=== PATIENT | female | born 1935 | race Caucasian/White ===

== ENCOUNTER 2016-12-15 12:34 | Inpatient (IN) | payer OTHER, MEDICARE ==
[2016-12-15] VITALS (7 sets, daily range): BP systolic 114–120; BP diastolic 55–58; PULSE 74–87; RESP 15–24; TEMP 97.4–99.1; O2SAT 91–96
[~2016-12-15] VITALS: Ht 160 cm; Wt 84.4 kg
[2016-12-15] MEDS ORDERED: MORPHINE SULFATE 4 MG/ML INJ IV PUSH ONE (13:00)
[2016-12-15] MEDS ORDERED: SODIUM CHLORIDE 0.9% FLUSH 10 ML FLUSH IVF PRN (13:00)
--- NOTE | 2016-12-15 13:02 | PD ---
HPI Chief Complaint: Fall Time Seen by Provider: 12:48 Travel History International Travel<30 days: No Contact w/Intl Traveler<30days: No Traveled to known affect area: No History of Present Illness HPI 81-year-old female with PMH of Alzheimer's, dementia, CKD stage III presents to the ED via EMS for evaluation of left hip pain. The patient is somewhat somnolent, rouses easily to voice but only intermittently answers questions. Her daughter is at bedside and helps to provide the history. Patient's daughter states that her mother suffered an unwitnessed fall 4 days ago. The patient's daughter and her brother helped to move the patient back in bed. Since that time the patient has not gotten up and has been complaining of left hip pain. The daughter also reports that she has been less active or participatory in her ADLs. The patient takes no daily medications. Patient's last meal was soup, last night. PFSH Past Medical History Alzheimer's Disease: Yes Arthritis: No Autoimmune Disease: No Heart Rhythm Problems: No Cardiovascular Problems: Yes (HYPOTENTION ) High Cholesterol: Yes Chest Pain: No Congestive Heart Failure: No Cerebrovascular Accident: No Dementia: Yes Diabetes: No Diminished Hearing: No Gastrointestinal Disorders: No GERD: No Glaucoma: No Genitourinary: Yes (CHRONIC KIDNEY DISEASE - STAGE 3 ) Headaches: No Hepatitis: No Hiatal Hernia: No Hypertension: No Kidney Stones: No Medical other: Yes (VITAMIN D DEFICIENCY ) Musculoskeletal: Yes (OSTEOPOROSIS ) Myocardial Infarction: No Renal Failure: No Seizures: No Thyroid Disease: Yes (HYPOTHYROID ) Ulcer: No Tetanus Vaccination: Unknown Influenza Vaccination: No ?: Not Menopausal: Yes Past Surgical History Abdominal Surgery: No AICD: No Cardiac Surgery: No Ear Surgery: No Endocrine Surgery: No Eye Surgery: No Gynecologic Surgery: No Oral Surgery: No Pacemaker: No Thoracic Surgery: No Other Surgery: No Social History Alcohol Use: No Tobacco Use: No Substance Use: No Allergies-Medications (Allergen,Severity, Reaction): Coded Allergies: No Known Allergies (Verified Allergy, Severe, 12/15/16) Reported Meds & Prescriptions Reported Meds & Active Scripts Active Reported Donepezil 10 Mg Tab 10 Mg PO BID Levothyroxine (Levothyroxine Sodium) 50 Mcg Tab 50 Mcg PO DAILY Atorvastatin (Atorvastatin Calcium) 40 Mg Tab 40 Mg PO HS Review of Systems ROS Limitations: Poor Historian Except as stated in HPI: all other systems reviewed are Neg General / Constitutional: No: Fever Eyes: No: Visual changes HENT: No: Headaches, Lightheadedness Cardiovascular: No: Chest Pain or Discomfort Gastrointestinal: No: Vomiting, Diarrhea Genitourinary: Positive: Incontinence Neurologic: No: Weakness, Syncope, Slurred Speech Physical Exam Exam Limitations: Other: (Alzheimer's, dementia) Narrative GENERAL: Well-nourished, well-developed white female in no acute distress. SKIN: Focused skin assessment warm/dry. HEAD: Normocephalic. EYES: No scleral icterus. No injection or drainage. Pupils pinpoint bilaterally. NECK: Supple, trachea midline. No JVD or lymphadenopathy. CARDIOVASCULAR: Regular rate and rhythm without murmurs, gallops, or rubs. RESPIRATORY: Breath sounds clear and equal bilaterally. No accessory muscle use. GASTROINTESTINAL: Abdomen soft, non-tender, nondistended. Active bowel sounds. MUSCULOSKELETAL: No cyanosis, or edema. FOCUSED LEFT LOWER EXTREMITY EXAM: 2+ DP pulse. The leg is slightly internally rotated and shortened. No tenderness to palpation of the anterior lateral hip or pain elicited with internal and external rotation. BACK: Nontender without obvious deformity. No CVA tenderness. Data Data Last Documented VS Vital Signs Date Time Temp Pulse Resp B/P (MAP) Pulse Ox O2 Delivery O2 Flow Rate FiO2 12/15/16 15:14 74 24 114/58 (76) 95 Room Air 12/15/16 12:46 99.1 Orders Orders Electrocardiogram (12/15/16 12:48) Complete Blood Count With Diff (12/15/16 12:48) Comprehensive Metabolic Panel (12/15/16 12:48) Prothrombin Time / Inr (Pt) (12/15/16 12:48) Act Partial Throm Time (Ptt) (12/15/16 12:48) Urinalysis - C+S If Indicated (12/15/16 12:48) Type And Screen (12/15/16 12:48) Chest, Single Ap (12/15/16 12:48) Iv Access Insert/Monitor (12/15/16 12:48) Oximetry (12/15/16 12:48) Ice/Cold Pack (12/15/16 12:48) Ecg Monitoring (12/15/16 12:48) Sodium Chloride 0.9% Flush (Ns Flush) (12/15/16 13:00) Hip, Uni(Ap&Lat) W Ap Pelvis (12/15/16 12:48) Ct Brain W/O Iv Contrast(Rout) (12/15/16 ) Ct Cerv Spine W/O Contrast (12/15/16 ) Acetaminophen (Tylenol) (12/15/16 13:15) Urinary Catheter Insert/Apply (12/15/16 13:31) Urine Culture (12/15/16 13:20) Ceftriaxone Inj (Rocephin Inj) (12/15/16 14:15) Consult Orthopedic (12/15/16 ) (Hub Use Only)Inp Phy Cons/Ref (12/15/16 ) Admit Order (Ed Use Only) (12/15/16 15:24) Labs Laboratory Tests Test 12/15/16 12:50 12/15/16 13:20 12/15/16 13:40 White Blood Count 10.5 TH/MM3 Red Blood Count 4.16 MIL/MM3 Hemoglobin 12.9 GM/DL Hematocrit 37.8 % Mean Corpuscular Volume 90.9 FL Mean Corpuscular Hemoglobin 31.0 PG Mean Corpuscular Hemoglobin Concent 34.1 % Red Cell Distribution Width 13.9 % Platelet Count 251 TH/MM3 Mean Platelet Volume 8.5 FL Neutrophils (%) (Auto) 62.5 % Lymphocytes (%) (Auto) 23.3 % Monocytes (%) (Auto) 7.8 % Eosinophils (%) (Auto) 5.9 % Basophils (%) (Auto) 0.5 % Neutrophils # (Auto) 6.6 TH/MM3 Lymphocytes # (Auto) 2.4 TH/MM3 Monocytes # (Auto) 0.8 TH/MM3 Eosinophils # (Auto) 0.6 TH/MM3 Basophils # (Auto) 0.1 TH/MM3 CBC Comment DIFF FINAL Differential Comment Prothrombin Time 11.5 SEC Prothromb Time International Ratio 1.0 RATIO Activated Partial Thromboplast Time 28.8 SEC Urine Color YELLOW Urine Turbidity HAZY Urine pH 5.0 Urine Specific [place] 1.023 Urine Protein TRACE mg/dL Urine Glucose (UA) NEG mg/dL Urine Ketones NEG mg/dL Urine Occult Blood TRACE Urine Nitrite NEG Urine Bilirubin NEG Urine Urobilinogen LESS THAN 2.0 MG/DL Urine Leukocyte Esterase LARGE Urine RBC 1 /hpf Urine WBC 90 /hpf Urine WBC Clumps MANY Urine Squamous Epithelial Cells 20 /hpf Urine Bacteria RARE /hpf Urine Mucus FEW /lpf Microscopic Urinalysis Comment CULTURE INDICATED Blood Urea Nitrogen 14 MG/DL Creatinine 0.73 MG/DL Random Glucose 93 MG/DL Total Protein 6.6 GM/DL Albumin 2.4 GM/DL Calcium Level 8.5 MG/DL Alkaline Phosphatase 96 U/L Aspartate Amino Transf (AST/SGOT) 42 U/L Alanine Aminotransferase (ALT/SGPT) 22 U/L Total Bilirubin 1.1 MG/DL Sodium Level 134 MEQ/L Potassium Level 3.8 MEQ/L Chloride Level 103 MEQ/L Carbon Dioxide Level 22.8 MEQ/L Anion Gap 8 MEQ/L Estimat Glomerular Filtration Rate 77 ML/MIN [facility] Medical Decision Making Medical Screen Exam Complete: Yes Emergency Medical Condition: Yes Differential Diagnosis hip fracture versus ICH versus UTI versus cervical fracture versus other Narrative Course 81-year-old female with PMH of Alzheimer's, dementia, CKD stage III presents to the ED via EMS for evaluation of left hip pain. Onset after unwitnessed fall 4 days ago. The patient is somewhat somnolent, answers questions only intermittently. The history is provided by her daughter who is at bedside. She states that her mom is been lying in bed for the last 3 days, not much of an appetite but otherwise behaving normally. Vitals reviewed. Physical exam reveals the left leg to be shortened, internally rotated. She has a palpable DP pulse. No pain elicited with external and internal rotation. Patient was administered Tylenol by mouth. Left hip and pelvis x-ray: Acute displaced and angulated fracture of the left femoral neck with likely extension into the greater trochanter per radiology read. EKG rate 77, sinus rhythm. No ST changes. Reviewed by Dr. Mcgregor. CXR: No acute cardiopulmonary abnormality. Cervical CT no fracture, exaggeration of normal lordosis. CBC: WBC 10.5. Hemoglobin 12.9. Coags: INR 1.0. CMP: BUN 14, creatinine 0.73. Bilirubin 1.1. AST 42. UA: Hazy, large leukocyte esterase, 90 WBCs, many clumps, rare bacteria. Culture pending. The patient was administered 1 g Rocephin IV. I spoke with Dr. Martin who plans surgery tomorrow morning. Dr. Pontey agrees to accept the patient to the medicine service. Please see medicine and ortho notes for disposition. Re Ariza Dec 15, 2016 13:02
[2016-12-15] MEDS ORDERED: ACETAMINOPHEN 500 MG CPLT PO ONE (13:15)
[2016-12-15 13:22] LABS: AUTOMATED NEUTROPHIL # 6.6 TH/MM3 (1.8-7.7); BASOPHIL # 0.1 TH/MM3 (0-0.2); BASOPHIL % 0.5 % (0.0-2.0); EOSINOPHIL # 0.6 TH/MM3 (0-0.4); EOSINOPHIL % 5.9 % (0.0-4.0); HEMATOCRIT 37.8 % (35.0-46.0); HEMO FLAGS DIFF FINAL; LYMPH % 23.3 % (9.0-44.0); LYMPHOCYTE # 2.4 TH/MM3 (1.0-4.8); MEAN CELL VOLUME 90.9 FL (80.0-100.0); MEAN CORPUSCULAR HGB CONC 34.1 % (32.0-36.0); MONO % 7.8 % (0.0-8.0); NEUT % 62.5 % (16.0-70.0); PLATELET COUNT 251 TH/MM3 (150-450); RED BLOOD COUNT 4.16 MIL/MM3 (4.00-5.30); RED CELL DISTRIBUTION WIDTH 13.9 % (11.6-17.2); WHITE BLOOD COUNT 10.5 TH/MM3 (4.0-11.0)
[2016-12-15] MEDS ORDERED: DONE10TA7 PO (13:25)
[2016-12-15] MEDS ORDERED: LEVO50TA4 PO (13:25)
[2016-12-15] MEDS ORDERED: ATOR40TA16 PO (13:25)
--- NOTE | 2016-12-15 13:39 | PD ---
Physical Exam Date Seen by Provider: Dec 15, 2016 Narrative This patient presents with a left hip injury. The injury actually occurred several days ago. Data Data Last Documented VS Vital Signs Date Time Temp Pulse Resp B/P (MAP) Pulse Ox O2 Delivery O2 Flow Rate FiO2 12/15/16 13:22 78 15 96 Room Air 12/15/16 12:46 99.1 120/58 (78) Orders Orders Electrocardiogram (12/15/16 12:48) Complete Blood Count With Diff (12/15/16 12:48) Comprehensive Metabolic Panel (12/15/16 12:48) Prothrombin Time / Inr (Pt) (12/15/16 12:48) Act Partial Throm Time (Ptt) (12/15/16 12:48) Urinalysis - C+S If Indicated (12/15/16 12:48) Type And Screen (12/15/16 12:48) Chest, Single Ap (12/15/16 12:48) Iv Access Insert/Monitor (12/15/16 12:48) Oximetry (12/15/16 12:48) Ice/Cold Pack (12/15/16 12:48) Ecg Monitoring (12/15/16 12:48) Sodium Chloride 0.9% Flush (Ns Flush) (12/15/16 13:00) Hip, Uni(Ap&Lat) W Ap Pelvis (12/15/16 12:48) Ct Brain W/O Iv Contrast(Rout) (12/15/16 ) Ct Cerv Spine W/O Contrast (12/15/16 ) Acetaminophen (Tylenol) (12/15/16 13:15) Urinary Catheter Insert/Apply (12/15/16 13:31) Labs Laboratory Tests Test 12/15/16 12:50 12/15/16 13:20 White Blood Count 10.5 TH/MM3 Red Blood Count 4.16 MIL/MM3 Hemoglobin 12.9 GM/DL Hematocrit 37.8 % Mean Corpuscular Volume 90.9 FL Mean Corpuscular Hemoglobin 31.0 PG Mean Corpuscular Hemoglobin Concent 34.1 % Red Cell Distribution Width 13.9 % Platelet Count 251 TH/MM3 Mean Platelet Volume 8.5 FL Neutrophils (%) (Auto) 62.5 % Lymphocytes (%) (Auto) 23.3 % Monocytes (%) (Auto) 7.8 % Eosinophils (%) (Auto) 5.9 % Basophils (%) (Auto) 0.5 % Neutrophils # (Auto) 6.6 TH/MM3 Lymphocytes # (Auto) 2.4 TH/MM3 Monocytes # (Auto) 0.8 TH/MM3 Eosinophils # (Auto) 0.6 TH/MM3 Basophils # (Auto) 0.1 TH/MM3 CBC Comment DIFF FINAL Differential Comment MDM Supervised Visit with JOSE FRANCISCO: Yes Narrative Course I, Dr. Mcgregor, have reviewed the advance practice practitioner's documentation and am in agreement, met with the patient face to face, made the diagnosis, and the medical decision making was done by me. *My assessment and Findings: Patient seems demented. She has a slightly shortened and internally rotated left hip. She resists logrolling of the hip. She is distally neurovascularly intact. Please see Re Ariza PA-C's note for results of laboratory and radiographic evaluation, ED course, final diagnosis and disposition Anushka Mcgregor MD Dec 15, 2016 13:39
[2016-12-15 13:41] LABS: APTT (PATIENT) 28.8 SEC (24.3-30.1); PROTHROMBIN TIME - PATIENT 11.5 SEC (9.8-11.6)
--- NOTE | 2016-12-15 13:54 | RADRPT ---
EXAM DATE/TIME: 12/15/2016 13:27 [facility] COMPARISON: No previous studies available for comparison. INDICATIONS : Head pain due to fall. RADIATION DOSE: 32.65 CTDIvol (mGy) MEDICAL HISTORY : Hypothyroidism. Renal insufficiency. SURGICAL HISTORY : Right ankle sx. ENCOUNTER: Initial ACUITY: 1 day PAIN SCALE: 6/10 LOCATION: Bilateral cranial TECHNIQUE: Multiple contiguous axial images were obtained of the head. Using automated exposure control and adj ustment of the mA and/or kV according to patient size, radiation dose was kept as low as reasonably a chievable to obtain optimal diagnostic quality images. DICOM format image data is available electro nically for review and comparison. FINDINGS: CEREBRUM: The ventricles are normal for age. No evidence of midline shift, mass lesion, hemorrhage or acute in farction. No extra-axial fluid collections are seen. Moderate vasoganglia calcifications. POSTERIOR FOSSA: The cerebellum and brainstem are intact. The 4th ventricle is midline. The cerebellopontine angle i s unremarkable. Moderate posterior fossa EXTRACRANIAL: The visualized portion of the orbits is intact. SKULL: The calvaria is intact. No evidence of skull fracture. CONCLUSION: Dystrophic calcifications, otherwise negative for acute process. Mendoza Myers MD FACR on December 15, 2016 at 13:52 Board Certified Radiologist. This report was verified electronically.
[2016-12-15 13:58] LABS: BACTERIA, URINE RARE /hpf; BLOOD, URINE TRACE (NEG); COMMENT (UR) CULTURE INDICATED; CULTURE IF INDICATED CULTURE INDICATED; GLUCOSE,URINE NEG (NEG); KETONE, URINE NEG (NEG); MUCUS URINE FEW /lpf (OCC); NITRITE,URINE NEG (NEG); SQUAMOUS EPITHELIAL CELL URINE 20 /hpf (0-5); URINE COLOR YELLOW (YELLW/STRAW)
[2016-12-15] MEDS ORDERED: cefTRIAXone INJ 1,000 MG in SODIUM CHLORIDE 0.9% INJ 100 ML IV ONE (14:15)
--- NOTE | 2016-12-15 14:16 | RADRPT ---
EXAM DATE/TIME: 12/15/2016 13:27 [facility] COMPARISON: No previous studies available for comparison. INDICATIONS : Neck pain due to fall. RADIATION DOSE: 13.21 CTDIvol (mGy) MEDICAL HISTORY : Hypothyroidism. Renal insufficiency. SURGICAL HISTORY : Right ankle sx. ENCOUNTER: Initial ACUITY: 1 day PAIN SCALE: 6/10 LOCATION: Bilateral neck region. TECHNIQUE: Volumetric scanning of the cervical spine was performed. Multiplanar reconstructions in the sagittal, coronal and oblique axial planes were performed. Using automated exposure control and adjustment o f the mA and/or kV according to patient size, radiation dose was kept as low as reasonably achievable to obtain optimal diagnostic quality images. DICOM format image data is available electronically f or review and comparison. FINDINGS: VERTEBRAE: There is marked exaggeration of the normal cervical lordosis. ALIGNMENT: No evidence of subluxation. C2-C3: Degenerative changes at C1 and C2. Mildridging at C2-C3. C3-C4: Moderate uncinate ridging is present with moderate bilateral facet disease. C4-C5: The bony spinal canal is normal in size. No evidence of disc bulge or herniation. The neural forami na are bilaterally patent. C5-C6: Mild uncinate ridging is present minimal facet disease. C6-C7: Mild uncinate ridging is present. C7-T1: The bony spinal canal is normal in size. No evidence of disc bulge or herniation. The neural forami na are bilaterally patent. CONCLUSION: Marked exaggeration of normal cervical lordosis, negative for fracture. Mild degenerative changes. Mendoza Myers MD FACR on December 15, 2016 at 14:10 Board Certified Radiologist. This report was verified electronically.
--- NOTE | 2016-12-15 14:18 | RADRPT ---
EXAM DATE/TIME: 12/15/2016 13:53 [facility] COMPARISON: No previous studies available for comparison. INDICATIONS : Chest discomfort; fall 5 days ago. MEDICAL HISTORY : None. SURGICAL HISTORY : None. ENCOUNTER: Initial ACUITY: 4 - 6 days PAIN SCORE: 0/10 LOCATION: Bilateral chest FINDINGS: Single AP view of the chest demonstrates a normal-sized cardiac silhouette with calcification of the aorta. No effusion, consolidation, or pneumothorax is identified. Mild biapical pleural pedicle scar is present. Bones and soft tissues demonstrate no acute finding. There is dextroscoliosis. CONCLUSION: No acute cardiopulmonary abnormality is identified. Ortega Xiao MD on December 15, 2016 at 14:16 Board Certified Radiologist. This report was verified electronically.
--- NOTE | 2016-12-15 14:20 | RADRPT ---
EXAM DATE/TIME: 12/15/2016 13:53 [facility] COMPARISON: No previous studies available for comparison. INDICATIONS : Left hip pain; fell 5 days ago. MEDICAL HISTORY : None. SURGICAL HISTORY : None. ENCOUNTER: Initial ACUITY: 4 - 6 days PAIN SCORE: 10/10 LOCATION: Left hip FINDINGS: AP view of the pelvis with 2 views of the left hip joint demonstrate under mineralized bones with an oblique fracture through the basicervical region of the femoral neck with likely extension into the g reater trochanter. The fracture is slightly displaced and angulated. There is mild osteoarthritis at the hip joints bilaterally with mild joint space narrowing and osteophytes. No soft tissue abnormalit y is identified. CONCLUSION: There is an acute displaced and angulated fracture in the basicervical region of the left femoral nec k with likely extension into the greater trochanter. Ortega Xiao MD on December 15, 2016 at 14:17 Board Certified Radiologist. This report was verified electronically.
[2016-12-15 14:44] LABS: ALT (GPT) 22 U/L (10-53); ANION GAP 8 MEQ/L (5-15); AST (GOT) 42 U/L (15-37); BICARBONATE 22.8 MEQ/L (21.0-32.0); BLOOD UREA NITROGEN 14 MG/DL (7-18); CHLORIDE 103 MEQ/L (98-107); GLOMERULAR FILTRATION RATE 77 ML/MIN (>89); POTASSIUM 3.8 MEQ/L (3.5-5.1); SODIUM (NA) 134 MEQ/L (136-145)
[2016-12-15 14:47] LABS: ALKALINE PHOSPHATASE 96 U/L (45-117); TOTAL BILIRUBIN ADULT 1.1 MG/DL (0.2-1.0)
--- NOTE | 2016-12-15 15:38 | HHI.HP ---
[facility] Len [facility] Admission Diagnosis left hip fracture, UTI Diagnoses: (1) Hip fracture, left (2) UTI (urinary tract infection) (3) Dementia Chief Complaint: Left Hip pain Travel History International Travel<30 Days: No Contact w/Intl Traveler <30 Da: No Traveled to Known Affected Are: No History of Present Illness 81 year-old female with history of dementia was brought to the ED for evaluation of left hip pain 4 days duration. Apparently about 4 days ago, patient woke up from sleep and wandered outside, however she suffered an unwitnessed fall. Patient is a poor historian as the history is mainly provided by her daughter, who stated that patient has been complaining of left hip every times she moves or stand up. She was given a be aspirin over the past 4 days, without any significant improvement. Patient's PCP advise for a visit to the ED. While in the ED, hip and pelvis x-ray revealing left femoral neck fracture. Abnormal labs also include UA. Patient is quite somnolent during my exam. Per her daughter, she's had decrease by mouth intake Review of Systems ROS Limitations: Poor Historian Except as stated in HPI: all other systems reviewed are Neg Past Family Social History Past Medical History Cardiovascular Problems: Yes (HYPOTENTION ) High Cholesterol: Yes Dementia: Yes Genitourinary: Yes (CHRONIC KIDNEY DISEASE - STAGE 3 ) Medical other: Yes (VITAMIN D DEFICIENCY ) Musculoskeletal: Yes (OSTEOPOROSIS ) Thyroid Disease: Yes (HYPOTHYROID ) Past Surgical History Open reduction internal fixation right ankle 2003 Reported Medications Donepezil 10 Mg Tab 10 Mg PO BID Levothyroxine (Levothyroxine Sodium) 50 Mcg Tab 50 Mcg PO DAILY Atorvastatin (Atorvastatin Calcium) 40 Mg Tab 40 Mg PO HS Allergies: Coded Allergies: No Known Allergies (Verified Allergy, Severe, 12/15/16) Family History Due to patient advanced age family history not relevant Social History Alcohol Use: No Tobacco Use: No Substance Use: No Physical Exam Vital Signs Vital Signs Date Time Temp Pulse Resp B/P (MAP) Pulse Ox O2 Delivery O2 Flow Rate FiO2 12/15/16 15:14 74 24 114/58 (76) 95 Room Air 12/15/16 13:22 78 15 96 Room Air 12/15/16 12:46 99.1 77 15 120/58 (78) 96 Physical Exam GENERAL: This is a well-nourished, well-developed patient, in no apparent distress. SKIN: No rashes, ecchymoses or lesions. Cool and dry. HEAD: Atraumatic. Normocephalic. No temporal or scalp tenderness. EYES: Pupils equal round and reactive. Extraocular motions intact. No scleral icterus. No injection or drainage. ENT: Nose without bleeding, purulent drainage or septal hematoma. Throat without erythema, tonsillar hypertrophy or exudate. Uvula midline. Airway patent. NECK: Trachea midline. No JVD or lymphadenopathy. Supple, nontender, no meningeal signs. CARDIOVASCULAR: Regular rate and rhythm without murmurs, gallops, or rubs. RESPIRATORY: Clear to auscultation. Breath sounds equal bilaterally. No wheezes , rales, or rhonchi. GASTROINTESTINAL: Abdomen soft, non-tender, nondistended. No hepato-splenomegaly , or palpable masses. No guarding. MUSCULOSKELETAL: Extremities without clubbing, cyanosis, or edema. No joint tenderness, effusion, or edema noted. No calf tenderness. Negative Homans sign bilaterally. NEUROLOGICAL: Awake and alert. Cranial nerves II through XII intact. Motor and sensory grossly within normal limits. Five out of 5 muscle strength in all muscle groups. Normal speech. Laboratory Laboratory Tests Test 12/15/16 12:50 12/15/16 13:20 12/15/16 13:40 White Blood Count 10.5 Red Blood Count 4.16 Hemoglobin 12.9 Hematocrit 37.8 Mean Corpuscular Volume 90.9 Mean Corpuscular Hemoglobin 31.0 Mean Corpuscular Hemoglobin Concent 34.1 Red Cell Distribution Width 13.9 Platelet Count 251 Mean Platelet Volume 8.5 Neutrophils (%) (Auto) 62.5 Lymphocytes (%) (Auto) 23.3 Monocytes (%) (Auto) 7.8 Eosinophils (%) (Auto) 5.9 Basophils (%) (Auto) 0.5 Neutrophils # (Auto) 6.6 Lymphocytes # (Auto) 2.4 Monocytes # (Auto) 0.8 Eosinophils # (Auto) 0.6 Basophils # (Auto) 0.1 CBC Comment DIFF FINAL Differential Comment Prothrombin Time 11.5 Prothromb Time International Ratio 1.0 Activated Partial Thromboplast Time 28.8 Urine Color YELLOW Urine Turbidity HAZY Urine pH 5.0 Urine Specific [place] 1.023 Urine Protein TRACE Urine Glucose (UA) NEG Urine Ketones NEG Urine Occult Blood TRACE Urine Nitrite NEG Urine Bilirubin NEG Urine Urobilinogen LESS THAN 2.0 Urine Leukocyte Esterase LARGE Urine RBC 1 Urine WBC 90 Urine WBC Clumps MANY Urine Squamous Epithelial Cells 20 Urine Bacteria RARE Urine Mucus FEW Microscopic Urinalysis Comment CULTURE INDICATED Blood Urea Nitrogen 14 Creatinine 0.73 Random Glucose 93 Total Protein 6.6 Albumin 2.4 Calcium Level 8.5 Alkaline Phosphatase 96 Aspartate Amino Transf (AST/SGOT) 42 Alanine Aminotransferase (ALT/SGPT) 22 Total Bilirubin 1.1 Sodium Level 134 Potassium Level 3.8 Chloride Level 103 Carbon Dioxide Level 22.8 Anion Gap 8 Estimat Glomerular Filtration Rate 77 Date/Time Source Procedure Growth Status 12/15/16 13:20 Urine Catheterized Urine Urine Culture Pending Received Result Diagram: 12/15/16 1250 12/15/16 1340 Imaging Last Impressions Hip and Pelvis X-Ray 12/15/16 1248 Signed Impressions: Service Date/Time: Thursday, December 15, 2016 13:53 - CONCLUSION: There is an acute displaced and angulated fracture in the basicervical region of the left femoral neck with likely extension into the greater trochanter. Ortega Xiao MD Chest X-Ray 12/15/16 1248 Signed Impressions: Service Date/Time: Thursday, December 15, 2016 13:53 - CONCLUSION: No acute cardiopulmonary abnormality is identified. Ortega Xiao MD Head CT 12/15/16 0000 Signed Impressions: Service Date/Time: Thursday, December 15, 2016 13:27 - CONCLUSION: Dystrophic calcifications, otherwise negative for acute process. Mendoza Myers MD FACR Cervical Spine CT 12/15/16 0000 Signed Impressions: Service Date/Time: Thursday, December 15, 2016 13:27 - CONCLUSION: Marked exaggeration of normal cervical lordosis, negative for fracture. Mild degenerative changes. Mendoza Myers MD FACR Caprini VTE Risk Assessment Caprini VTE Risk Assessment: Mod/High Risk (score >= 2) Caprini Risk Assessment Model Point Value = 1 Point Value = 2 Point Value = 3 Point Value = 5 Age 41-60 Minor surgery BMI > 25 kg/m2 Swollen legs Varicose veins or History of unexplained or recurrent spontaneous Oral contraceptives or hormone replacement Sepsis (< 1 month) Serious lung disease, including pneumonia (< 1 month) Abnormal pulmonary function Acute myocardial infarction Congestive heart failure (< 1 month) History of inflammatory bowel disease Medical patient at bed rest Age 61-74 Arthroscopic surgery Major open surgery (> 45 min) Laparoscopic surgery (> 45 min) Malignancy Confined to bed (> 72 hours) Immobilizing plaster cast Central venous access Age >= 75 History of VTE Family history of VTE Factor V Leiden Prothrombin [id number] Lupus anticoagulant Anticardiolipin antibodies Elevated serum homocysteine Heparin-induced thrombocytopenia Other congenital or acquired thrombophilia Stroke (< 1 month) Elective arthroplasty Hip, pelvis, or leg fracture Acute spinal cord injury (< 1 month) Prophylaxis Regimen Total Risk Factor Score Risk Level Prophylaxis Regimen 0-1 Low Early ambulation 2 Moderate Order ONE of the following: *Sequential Compression Device (SCD) *Heparin 5000 units SQ BID 3-4 Higher Order ONE of the following medications: *Heparin 5000 units SQ TID *Enoxaparin/Lovenox 40 mg SQ daily (WT < 150 kg, CrCl > 30 mL/min) *Enoxaparin/Lovenox 30 mg SQ daily (WT < 150 kg, CrCl > 10-29 mL/min) *Enoxaparin/Lovenox 30 mg SQ BID (WT < 150 kg, CrCl > 30 mL/min) AND/OR *Sequential Compression Device (SCD) 5 or more Highest Order ONE of the following medications: *Heparin 5000 units SQ TID (Preferred with Epidurals) *Enoxaparin/Lovenox 40 mg SQ daily (WT < 150 kg, CrCl > 30 mL/min) *Enoxaparin/Lovenox 30 mg SQ daily (WT < 150 kg, CrCl > 10-29 mL/min) *Enoxaparin/Lovenox 30 mg SQ BID (WT < 150 kg, CrCl > 30 mL/min) AND *Sequential Compression Device (SCD) Assessment and Plan Problem List: (1) Hip fracture, left ICD Code: S72.002A - Fracture of unspecified part of neck of left femur, initial encounter for closed fracture (2) UTI (urinary tract infection) ICD Code: N39.0 - Urinary tract infection, site not specified (3) Dementia ICD Code: F03.90 - Unspecified dementia without behavioral disturbance Assessment and Plan 81-year-old female with Acute left femoral neck fracture Hip and pelvics x-ray noted and review by me with finding of left neck femoral fracture Orthopedic surgery consultation pending for evaluation for repair Pain management accordingly Nothing by mouth past midnight, IV fluid hydration Postprocedure DVT prophylaxis per orthopedic surgery Urinary tract infection Abnormal UA Status post Rocephin IV 1 in ED, continue with IV antibiotics pending urine culture History of dementia, hyperlipidemia, hypertension Resume outpatient medications DVT prophylaxis: SCDs, postprocedure per orthopedic surgery Code Status Full code Discussed Condition With Patient's daughter, ED PA Physician Certification 2 Midnight Certification Type: Admission for Inpatient Services Order for Inpatient Services The services are ordered in accordance with Medicare regulations or non- Medicare payer requirements, as applicable. In the case of services not specified as inpatient-only, they are appropriately provided as inpatient services in accordance with the 2-midnight benchmark. Estimated LOS (days): 2 days is the estimated time the patient will need to remain in the hospital, assuming treatment plan goals are met and no additional complications. Post-Hospital Plan: Not yet determined Kostas Brooks MD Dec 15, 2016 15:38
[2016-12-15] MEDS ORDERED: SODIUM CHLORIDE 0.9% FLUSH 10 ML FLUSH IV FLUSH PRN (15:45)
[2016-12-15] MEDS ORDERED: NALOXONE HCL 0.4 MG/ML AMP IV PUSH PRN (15:45)
[2016-12-15] MEDS ORDERED: RESP: ALBUTEROL 2.5 MG/IPRATROPIUM 0.5 MG NEB (PRN) NEB (15:45)
[2016-12-15] MEDS ORDERED: MAGNESIUM HYDROXIDE SUSP 30 ML CUP PO PRN (15:45)
[2016-12-15] MEDS ORDERED: ENALAPRILAT 2.5 MG/2 ML VIAL IV PUSH PRN (15:45)
[2016-12-15] MEDS ORDERED: ACETAMINOPHEN/HYDROcodone 325 MG/5 MG TAB PO PRN (15:45)
[2016-12-15] MEDS ORDERED: ONDANSETRON HCL 4 MG/2 ML VIAL IVP PRN (15:45)
--- NOTE | 2016-12-15 19:37 | EKG ---
Date Performed: 12/15/2016 Time Performed: 14:28:31 PTAGE: 81 years EKG: Baseline artifact present Sinus rhythm NORMAL ECG No significant change from prior electrocardiogram. PREVIOUS TRACING : 01/15/2004 18.13 DOCTOR: Issa Cao Interpretating Date/Time 12/15/2016 19:36:37
[2016-12-15] MEDS: DONEPEZIL HCL 5 MG TAB PO SCH (22:07)
[2016-12-15] MEDS: SODIUM CHLORIDE 0.9% FLUSH 10 ML FLUSH IV FLUSH SCH (22:08)
[2016-12-15] MEDS: ATORVASTATIN 40 MG TAB PO SCH (22:08)
[2016-12-15] MEDS: SODIUM CHLOR 0.9% 1000 ML INJ 1,000 ML IV SCH (22:09)
[2016-12-15] MEDS: ACETAMINOPHEN 325 MG TAB PO PRN (23:00)
[2016-12-16 00:26] VITALS: BP 107/54; PULSE 71; RESP 18; TEMP 97.8; O2SAT 95
[2016-12-16] MEDS ORDERED: POVIDONE IODINE 5% (ANTISEPSIS KIT) 4 APPLICATIONS EACH NARE PRN (03:15)
[2016-12-16] MEDS ORDERED: INSULIN HUMAN REGULAR 1,000 UNITS/10 ML VIAL SQ PRN (03:15)
[2016-12-16] MEDS ORDERED: METOPROLOL TARTRATE 25 MG TAB PO PRN (03:15)
[2016-12-16] MEDS ORDERED: SODIUM CHLORID 0.9% 500 ML IV PRN (03:15)
[2016-12-16] MEDS ORDERED: CHLORHEXIDINE GLUCONATE 2 % 1 PACK (2 CLOTHS) TOPICAL PRN (03:15)
[2016-12-16] MEDS ORDERED: LACTATED RINGER'S 1000 ML IV PRN (03:15)
[2016-12-16 04:29] VITALS: BP 96/52; PULSE 70; RESP 18; TEMP 97.5; O2SAT 95
[2016-12-16 05:30] VITALS: BP 104/51
[2016-12-16] MEDS: LEVOTHYROXINE SODIUM 50 MCG TAB PO SCH (05:50)
[2016-12-16 07:00] LABS: AUTOMATED NEUTROPHIL # 6.3 TH/MM3 (1.8-7.7); BASOPHIL # 0.1 TH/MM3 (0-0.2); BASOPHIL % 0.7 % (0.0-2.0); EOSINOPHIL # 0.7 TH/MM3 (0-0.4); EOSINOPHIL % 7.7 % (0.0-4.0); HEMATOCRIT 34.5 % (35.0-46.0); HEMO FLAGS DIFF FINAL; LYMPH % 19.6 % (9.0-44.0); LYMPHOCYTE # 1.9 TH/MM3 (1.0-4.8); MEAN CELL VOLUME 90.8 FL (80.0-100.0); MEAN CORPUSCULAR HEMOGLOBIN 30.8 PG (27.0-34.0); MEAN CORPUSCULAR HGB CONC 33.9 % (32.0-36.0); MONO % 5.9 % (0.0-8.0); NEUT % 66.1 % (16.0-70.0); PLATELET COUNT 260 TH/MM3 (150-450); RED CELL DISTRIBUTION WIDTH 13.8 % (11.6-17.2); WHITE BLOOD COUNT 9.6 TH/MM3 (4.0-11.0)
[2016-12-16] MEDS: SODIUM CHLOR 0.9% 1000 ML INJ 1,000 ML IV SCH ×2 (07:18→20:40)
[2016-12-16 07:20] LABS: ALT (GPT) 22 U/L (10-53); ANION GAP 9 MEQ/L (5-15); AST (GOT) 36 U/L (15-37); BICARBONATE 24.9 MEQ/L (21.0-32.0); BLOOD UREA NITROGEN 13 MG/DL (7-18); CHLORIDE 103 MEQ/L (98-107); GLOMERULAR FILTRATION RATE 74 ML/MIN (>89); POTASSIUM 3.4 MEQ/L (3.5-5.1); SODIUM (NA) 137 MEQ/L (136-145)
[2016-12-16 07:23] LABS: ALKALINE PHOSPHATASE 91 U/L (45-117); TOTAL BILIRUBIN ADULT 0.8 MG/DL (0.2-1.0)
[2016-12-16] MEDS ORDERED: ceFAZolin 2 GM PREMIX 50 ML IV SCH (07:30)
[2016-12-16 08:00] VITALS: BP 115/58; PULSE 74; RESP 18; TEMP 96.2; O2SAT 96
[2016-12-16] MEDS: DONEPEZIL HCL 5 MG TAB PO SCH ×2 (09:53→20:41)
[2016-12-16] MEDS: SODIUM CHLORIDE 0.9% FLUSH 10 ML FLUSH IV FLUSH SCH ×2 (09:53→20:41)
[2016-12-16 12:00] VITALS: BP 116/68; PULSE 76; RESP 17; TEMP 97.4; O2SAT 94
[2016-12-16] MEDS ORDERED: ROCURONIUM INJ 50 MG/5 ML SYRINGE IV PUSH ONE (12:00)
[2016-12-16] MEDS ORDERED: PHENYLEPH/NS 1000 MCG/10 ML SYR IV ONE (12:00)
[2016-12-16] MEDS ORDERED: GLYCOPYRROLATE 1 MG/5 ML SYRINGE IV PUSH ONE (12:00)
[2016-12-16] MEDS ORDERED: NEOSTIGMINE 3 MG/3 ML SYR IV ONE (12:00)
[2016-12-16] MEDS ORDERED: LIDOCAINE HCL 1% PF 5 ML AMPULE OTHER ONE (12:00)
[2016-12-16] MEDS ORDERED: PROPOFOL 200 MG/20 ML AMP IV ONE (12:00)
[2016-12-16] MEDS ORDERED: ONDANSETRON HCL 4 MG/2 ML VIAL IV PUSH ONE (12:00)
[2016-12-16] MEDS ORDERED: ePHEDrine/NS 25 MG/5 ML SYR IV ONE (12:00)
[2016-12-16] MEDS ORDERED: ACETAMINOPHEN 1000 MG/100 ML 100 ML IV ONE ×2 (14:33→19:01)
[2016-12-16] MEDS ORDERED: GENTAMICIN SULFATE 80 MG/2 ML VIAL ONE (14:40)
--- NOTE | 2016-12-16 14:59 | HHI.PR ---
Subjective Remarks No acute event overnight Patient is heading to surgery Objective Vitals Vital Signs Date Time Temp Pulse Resp B/P (MAP) Pulse Ox O2 Delivery O2 Flow Rate FiO2 12/16/16 12:00 97.4 76 17 116/68 (84) 94 12/16/16 08:00 96.2 74 18 115/58 (77) 96 12/16/16 05:30 104/51 (68) 12/16/16 04:29 97.5 70 18 96/52 (67) 95 12/16/16 00:26 97.8 71 18 107/54 (71) 95 12/15/16 20:00 17 94 12/15/16 19:20 97.4 87 16 115/55 (75) 91 12/15/16 16:30 98.5 76 17 114/56 (75) 96 12/15/16 16:15 81 18 114/58 (76) 26 12/15/16 15:14 74 24 114/58 (76) 95 Room Air I/O 12/15/16 12/15/16 12/15/16 12/16/16 12/16/16 12/16/16 07:00 15:00 23:00 07:00 15:00 23:00 Intake Total 340 ml 541 ml 495 ml Output Total 280 ml 275 ml Balance 60 ml 266 ml 495 ml Intake Oral 240 ml IV Total 100 ml 541 ml 495 ml Output Urine Total 280 ml 275 ml Result Diagram: 12/16/16 0629 12/16/16 0629 Imaging Last Impressions Hip and Pelvis X-Ray 12/15/16 1248 Signed Impressions: Service Date/Time: Thursday, December 15, 2016 13:53 - CONCLUSION: There is an acute displaced and angulated fracture in the basicervical region of the left femoral neck with likely extension into the greater trochanter. Ortega Xiao MD Chest X-Ray 12/15/16 1248 Signed Impressions: Service Date/Time: Thursday, December 15, 2016 13:53 - CONCLUSION: No acute cardiopulmonary abnormality is identified. Ortega Xiao MD Head CT 12/15/16 0000 Signed Impressions: Service Date/Time: Thursday, December 15, 2016 13:27 - CONCLUSION: Dystrophic calcifications, otherwise negative for acute process. Mendoza Myers MD FACR Cervical Spine CT 12/15/16 0000 Signed Impressions: Service Date/Time: Thursday, December 15, 2016 13:27 - CONCLUSION: Marked exaggeration of normal cervical lordosis, negative for fracture. Mild degenerative changes. Mendoza Myers MD FACR Objective Remarks GENERAL: NAD SKIN: Warm and dry. HEAD: Normocephalic. EYES: No scleral icterus. No injection or drainage. NECK: Supple, trachea midline. No JVD or lymphadenopathy. CARDIOVASCULAR: Regular rate and rhythm without murmurs, gallops, or rubs. RESPIRATORY: Breath sounds equal bilaterally. No accessory muscle use. GASTROINTESTINAL: Abdomen soft, non-tender, nondistended. MUSCULOSKELETAL: No cyanosis, or edema. BACK: Nontender without obvious deformity. No CVA tenderness. A/P Problem List: (1) Hip fracture, left ICD Code: S72.002A - Fracture of unspecified part of neck of left femur, initial encounter for closed fracture (2) UTI (urinary tract infection) ICD Code: N39.0 - Urinary tract infection, site not specified (3) Dementia ICD Code: F03.90 - Unspecified dementia without behavioral disturbance Assessment and Plan 81-year-old female with Acute left femoral neck fracture Hip and pelvics x-ray with finding of left neck femoral fracture Orthopedic surgery appreciated and plan for repair today Pain management accordingly Nothing by mouth , IV fluid hydration Postprocedure DVT prophylaxis per orthopedic surgery Urinary tract infection Abnormal UA continue Rocephin 1 g IV daily pending urine culture History of dementia, hyperlipidemia, hypertension Continue outpatient medications DVT prophylaxis: SCDs, postprocedure per orthopedic surgery Kostas Brooks MD Dec 16, 2016 14:59
[2016-12-16] MEDS: cefTRIAXone INJ 1,000 MG in SODIUM CHLORIDE 0.9% INJ 100 ML IV SCH (15:00)
--- NOTE | 2016-12-16 16:37 | PD.CONS ---
cc: Peter Martin Jr., MD HPI Service Orthopedic Surgeons Consult Requested By Primary Care Physician Len Lopez Admission Diagnosis left hip fracture, UTI Diagnoses: (1) Hip fracture, left (2) UTI (urinary tract infection) (3) Dementia Chief Complaint: Left Hip fracture History of Present Illness 81 year-old female with history of dementia was brought to the ED for evaluation of left hip pain for 4 days. The patient had an apparent unwitnessed fall 4 days ago. She is a very poor historian and history is provided primarily by her daughter. According to her daughter she has been complaining of left hip pain for the past 4 days. She was initially seen by her primary care physician who recommended a visit to the emergency department. X-ray in the Edepartment reveal a left hip femoral neck. ROS - General Review of Systems ROS Limitations: Poor Historian Except as stated in HPI: all other systems reviewed are Neg PFSH Past Family Social History Past Medical History Cardiovascular Problems: Yes (HYPOTENTION ) High Cholesterol: Yes Dementia: Yes Genitourinary: Yes (CHRONIC KIDNEY DISEASE - STAGE 3 ) Medical other: Yes (VITAMIN D DEFICIENCY ) Musculoskeletal: Yes (OSTEOPOROSIS ) Thyroid Disease: Yes (HYPOTHYROID ) Past Surgical History Open reduction internal fixation right ankle 2003 Reported Medications Donepezil 10 Mg Tab 10 Mg PO BID Levothyroxine (Levothyroxine Sodium) 50 Mcg Tab 50 Mcg PO DAILY Atorvastatin (Atorvastatin Calcium) 40 Mg Tab 40 Mg PO HS Allergies: Coded Allergies: No Known Allergies (Verified Allergy, Severe, 12/15/16) Family History Due to patient advanced age family history not relevant Social History Alcohol Use: No Tobacco Use: No Substance Use: No Past Family Social History Past Medical History Cardiovascular Problems: Yes (HYPOTENTION ) High Cholesterol: Yes Dementia: Yes Genitourinary: Yes (CHRONIC KIDNEY DISEASE - STAGE 3 ) Medical other: Yes (VITAMIN D DEFICIENCY ) Musculoskeletal: Yes (OSTEOPOROSIS ) Thyroid Disease: Yes (HYPOTHYROID ) Past Surgical History Open reduction internal fixation right ankle 2003 Allergies: Coded Allergies: No Known Allergies (Verified Allergy, Severe, 12/15/16) Active Ordered Medications Current Medications Medications (Trade) Dose Ordered Sig/Elizabeth Route Start Time Stop Time Status Last Admin (Lipitor) 40 mg HS PO 12/15/16 21:00 12/15/16 22:08 (Aricept) 10 mg BID PO 12/15/16 21:00 12/16/16 09:53 (Synthroid) 50 mcg DAILY@0600 PO 12/16/16 06:00 (NS Flush) 2 ml UNSCH PRN IV FLUSH 12/15/16 15:45 (NS Flush) 2 ml BID IV FLUSH 12/15/16 21:00 12/16/16 09:53 (Tylenol) 650 mg Q4H PRN PO 12/15/16 15:45 12/15/16 23:00 (Zofran Inj) 4 mg Q6H PRN IVP 12/15/16 15:45 (Ewing 5-325 Mg) 1 tab Q4H PRN PO 12/15/16 15:45 (Narcan Inj) 0.4 mg UNSCH PRN IV PUSH 12/15/16 15:45 (Milk Of Magnesia Liq) 30 ml Q12H PRN PO 12/15/16 15:45 (Duoneb Neb) 1 ampule Q2HR NEB PRN NEB 12/15/16 15:45 (Vasotec Inj) 2.5 mg Q6H PRN IV PUSH 12/15/16 15:45 Ceftriaxone Sodium 1000 mg/ Sodium Chloride 100 ml @ 200 mls/hr Q24H IV 12/16/16 15:00 Sodium Chloride 1,000 ml @ 70 mls/hr [id number] IV 12/15/16 17:00 12/15/16 22:09 Lactated Ringer's 1,000 ml @ 30 mls/hr Q24H PRN IV 12/16/16 03:15 12/19/16 03:14 Sodium Chloride 500 ml @ 30 mls/hr [id number] PRN IV 12/16/16 03:15 12/19/16 03:14 (Lopressor) 25 mg [facility] PRN PO 12/16/16 03:15 12/19/16 03:14 (Betadine 5% Antisepsis Kit) 1 applic [facility] PRN EACH NARE 12/16/16 03:15 12/19/16 03:14 (Chlorhexidine 2% Cloth) 3 pack [facility] PRN TOPICAL 12/16/16 03:15 12/19/16 03:14 (NovoLIN R INJ) See Protocol Table ... [facility] PRN SQ 12/16/16 03:15 12/19/16 03:14 Cefazolin Sodium/ Dextrose 50 ml @ 150 mls/hr [facility] IV 12/16/16 07:30 12/20/16 07:29 Reported Meds & Active Scripts Active Reported Donepezil 10 Mg Tab 10 Mg PO BID Levothyroxine (Levothyroxine Sodium) 50 Mcg Tab 50 Mcg PO DAILY Atorvastatin (Atorvastatin Calcium) 40 Mg Tab 40 Mg PO HS Family History Due to patient advanced age family history not relevant Social History Alcohol Use: No Tobacco Use: No Substance Use: No Physical Exam Vital Signs Vital Signs Date Time Temp Pulse Resp B/P (MAP) Pulse Ox O2 Delivery O2 Flow Rate FiO2 12/16/16 12:00 97.4 76 17 116/68 (84) 94 12/16/16 08:00 96.2 74 18 115/58 (77) 96 12/16/16 05:30 104/51 (68) 12/16/16 04:29 97.5 70 18 96/52 (67) 95 12/16/16 00:26 97.8 71 18 107/54 (71) 95 12/15/16 20:00 17 94 12/15/16 19:20 97.4 87 16 115/55 (75) 91 Physical Exam Demented and confused Head: NC/AT Neck: No pain with any range of motion and neck. Pulmonary: Normal respiratory effort. Bilateral upper extremity: No deformities grossly neurovascularly intact. Does not report pain with palpation of the upper extremity musculature. 2+ radial artery pulses. Good cap refill. RIGHT lower extremity: No deformity, grossly Neurovascularly intact, +EHL/FHL. + PT/DP pulses. Supple compartments. LEFT lower extremity: Shortened, internally rotated, grossly Neurovascularly intact, +EHL/FHL. + PT/DP pulses. Supple compartments. Laboratory Laboratory Tests Test 12/16/16 06:29 White Blood Count 9.6 Red Blood Count 3.80 Hemoglobin 11.7 Hematocrit 34.5 Mean Corpuscular Volume 90.8 Mean Corpuscular Hemoglobin 30.8 Mean Corpuscular Hemoglobin Concent 33.9 Red Cell Distribution Width 13.8 Platelet Count 260 Mean Platelet Volume 8.1 Neutrophils (%) (Auto) 66.1 Lymphocytes (%) (Auto) 19.6 Monocytes (%) (Auto) 5.9 Eosinophils (%) (Auto) 7.7 Basophils (%) (Auto) 0.7 Neutrophils # (Auto) 6.3 Lymphocytes # (Auto) 1.9 Monocytes # (Auto) 0.6 Eosinophils # (Auto) 0.7 Basophils # (Auto) 0.1 CBC Comment DIFF FINAL Differential Comment Blood Urea Nitrogen 13 Creatinine 0.75 Random Glucose 93 Total Protein 6.3 Albumin 2.2 Calcium Level 8.1 Alkaline Phosphatase 91 Aspartate Amino Transf (AST/SGOT) 36 Alanine Aminotransferase (ALT/SGPT) 22 Total Bilirubin 0.8 Sodium Level 137 Potassium Level 3.4 Chloride Level 103 Carbon Dioxide Level 24.9 Anion Gap 9 Estimat Glomerular Filtration Rate 74 Date/Time Source Procedure Growth Status 12/15/16 13:20 Urine Catheterized Urine Urine Culture - Preliminary Streptococcus Species Lactobacillus Species Resulted Result Diagram: 12/16/16 0629 12/16/16 0629 Imaging Last 72 hours Impressions Hip and Pelvis X-Ray 12/15/168 Signed Impressions: Service Date/Time: Thursday, December 15, 2016 13:53 - CONCLUSION: There is an acute displaced and angulated fracture in the basicervical region of the left femoral neck with likely extension into the greater trochanter. Ortega Xiao MD Chest X-Ray 12/15/16 1248 Signed Impressions: Service Date/Time: Thursday, December 15, 2016 13:53 - CONCLUSION: No acute cardiopulmonary abnormality is identified. Ortega Xiao MD Head CT 12/15/16 0000 Signed Impressions: Service Date/Time: Thursday, December 15, 2016 13:27 - CONCLUSION: Dystrophic calcifications, otherwise negative for acute process. Mendoza Myers MD FACR Cervical Spine CT 12/15/16 0000 Signed Impressions: Service Date/Time: Thursday, December 15, 2016 13:27 - CONCLUSION: Marked exaggeration of normal cervical lordosis, negative for fracture. Mild degenerative changes. Mendoza Myers MD FACR Assessment & Plan Assessment and Plan 81 year-old female with history of dementia was brought to the ED for evaluation of left hip pain for 4 days. The patient had an apparent unwitnessed fall 4 days ago. She is a very poor historian and history is provided primarily by her daughter. X-ray reviewed. I recommend left hip open reduction internal fixation with intramedullary rafaela versus bipolar hemiarthroplasty. Treatment plan discussed. All questions answered. NPO. OR today Peter Martin Jr., MD Dec 16, 2016 16:37
[2016-12-16] MEDS ORDERED: PERC5TAB12 PO (18:12)
[2016-12-16] MEDS ORDERED: SENNOSIDES 8.6 MG TAB PO PRN (18:15)
[2016-12-16] MEDS ORDERED: MORPHINE SULFATE 8 MG/ML INJ IV PUSH PRN (18:15)
[2016-12-16] MEDS ORDERED: SODIUM CHLORIDE 0.9% FLUSH 10 ML FLUSH IV FLUSH PRN (18:15)
[2016-12-16] MEDS ORDERED: PROMETHAZINE HCL 25 MG TAB PO PRN (18:15)
[2016-12-16] MEDS ORDERED: oxyCODONE/ACETAMINOPHEN 5 MG/325 MG TAB PO PRN (18:15)
[2016-12-16] MEDS ORDERED: ZOLPIDEM TARTRATE 5 MG TAB PO PRN (18:15)
[2016-12-16] MEDS ORDERED: MAGNESIUM HYDROXIDE SUSP 30 ML CUP PO PRN (18:15)
[2016-12-16] MEDS ORDERED: BISACODYL 10 MG SUPP RECTAL PRN (18:15)
--- NOTE | 2016-12-16 18:32 | PD.OP ---
cc: Peter Martin Jr., MD Operative Report Date of Surgery: Dec 16, 2016 Preoperative Diagnosis: 1-severely comminuted right greater trochanter 2- basicervical femoral neck fracture 3- nondisplaced transcervical femoral neck fracture Postoperative Diagnosis: 1-severely comminuted right greater trochanter 2- basicervical femoral neck fracture with subtrochanteric extension Procedure: 1-Open reduction internal fixation with suture of the greater trochanter 2- right hip intramedullary rafaela fixation Anesthesia: Gen Surgeon: Peter Martin Tread Tuber Machine Operator(s): BERNICE Royal The surgical procedure was assisted by my Advanced Registered Nurse Practitioner. My PSYCHIATRIC SOCIAL WORKER presence was necessary throughout this case for the manipulation and positioning of the surgical extremity. My PSYCHIATRIC SOCIAL WORKER was assisting me throughout the duration of this procedure. The skill set of an Advance Registered Nurse Practitioner was medically necessary to complete this procedure. During the surgical case, the surgical forceps fabricator was working at the back table and the Advance Registered Nurse Practitioner was directly assisting me. Resident Surgeon: None Operation and Findings: The patient received intravenous Ancef. After the appropriate anesthesia was administered, the patient was transferred to the operating table initially in the lateral decubitus position. The hip was prepped and draped in usual sterile fashion. A posterior lateral incision and approach to the hip was made. Dissection carried down to the IT band which was split in the direction of its fibers. A severely comminuted fracture of the greater trochanter as well as a comminuted and displaced basicervical femoral neck fracture with subtrochanteric extension was identified. Because of lack of medial calcar support, lateral femoral cortex integrity as well as greater trochanter fractured, the decision was made to turn the patient supine and proceed with open reduction internal fixation with suture of the greater trochanter as well as intramedullary rafaela fixation of the peritrochanteric femur fracture. The incision was closed with peter and covered with sterile dressing. Again, The hip was prepped and draped in usual sterile fashion. Gentle traction was applied on the fracture table and adequate reduction under fluoroscopy was obtained. Through previous incision, We dissected down through the deep fascia. We used a threaded guidewire at the tip of the greater trochanter which was placed down to the metaphyseal region on both the AP and lateral views. We reamed proximally. Using fluoroscopic analysis we templated the appropriate size for the short nail. This nail was then placed into position under fluoroscopic guidance. We made incision laterally based on the position of the associated jig. We then placed a threaded guidewire into the center, center of the femoral head. The appropriate length for the screw was measured. We drilled laterally and then step reamed the femoral neck and femoral head region. The screw was placed into position. We then tightened the proximal set screw, which was followed by releasing one turn off of the screw to allow for compression. Traction was released from the leg and then manual compression was performed. The nail was secured distally with a single screw off of the jig using fluoroscopic guidance. Using #5 FiberWire the greater trochanter was reduced and fixed. We took final fluoroscopic imaging which revealed that the fractures were in very good position. The hardware was in good position as well. The wounds were thoroughly irrigated and then closed with a 0 Vicryl followed by 2-0 Vicryl and peter. The postoperative plan is to start Nonweightbearing. Additionally, we will initiate postoperative antibiotics for 24 hours along with DVT prophylaxis consisting of early mobilization, SCDs, compression stockings, and lovenox. IMPLANTS USED Synthes intermediate trochanteric nail, size: 11, 130deg POSTP-OP PLAN OF ACTIVITY Antibiotics: Ancef, vancomycin Antiocoagulation: Lovenox Weight bearing status: NWB Dressing: Change daily, by RN starting postop day 2 Dispo: expected discharge 2-3 days. Likely SNF Peter Martin Jr., MD Dec 16, 2016 18:32
[2016-12-16] MEDS ORDERED: DO NOT ADM ANY ANTICOAGULANT DRUGS PRN (18:43)
[2016-12-16] MEDS ORDERED: Post-op Orders (for Pharmacy) MISC XX ONE (18:43)
[2016-12-16] MEDS ORDERED: *morphine SULFATE 8 MG/ML PERIprocedure ONLY ONE (18:58)
[2016-12-16 20:08] VITALS: BP 113/58; PULSE 89; RESP 16; TEMP 97; O2SAT 98
[2016-12-16] MEDS: VANCOMYCIN INJ 1,000 MG in SODIUM CHLOR 0.9% 250 ML INJ 250 ML IV SCH (20:40)
[2016-12-16] MEDS: ATORVASTATIN 40 MG TAB PO SCH (20:41)
[2016-12-16] MEDS: DOCUSATE SODIUM 50 MG/SENNA 8.6 MG TAB PO SCH (20:42)
--- NOTE | 2016-12-16 22:01 | RADRPT ---
EXAM DATE/TIME: 12/16/2016 17:44 [place] COMPARISON: No previous studies available for comparison. INDICATIONS : Left hip trochnail ORIF. MEDICAL HISTORY : None. SURGICAL HISTORY : None. ENCOUNTER: Subsequent ACUITY: 1 day PAIN SCORE: Non-responsive. LOCATION: Left Hip. FINDINGS: 4 magnified C-arm spot views are centered over the hip joint and labeled left. There is a femoral nec k screw with short intramedullary rafaela. The alignment noted. Femoral neck screw is contained within th e cortical confines of the femoral head. Osteoarthritis noted. CONCLUSION: Limited images as detailed above. Mp Guillen Jr., MD on December 16, 2016 at 21:59 Board Certified Radiologist. This report was verified electronically.
[2016-12-17] VITALS (8 sets, daily range): BP systolic 95–120; BP diastolic 47–64; PULSE 80–91; RESP 16–17; TEMP 96.8–99.7; O2SAT 92–96
[2016-12-17 04:55] LABS: HEMATOCRIT 28.5 % (35.0-46.0); REVIEW FLAG FINAL
[2016-12-17] MEDS: LEVOTHYROXINE SODIUM 50 MCG TAB PO SCH (06:13)
[2016-12-17] MEDS: ENOXAPARIN SODIUM 30 MG/0.3 ML SYRINGE SQ SCH ×2 (06:13→18:20)
[2016-12-17] MEDS: SODIUM CHLORIDE 0.9% FLUSH 10 ML FLUSH IV FLUSH SCH ×2 (09:00→20:26)
[2016-12-17] MEDS: DONEPEZIL HCL 5 MG TAB PO SCH ×2 (10:27→20:26)
[2016-12-17] MEDS: DOCUSATE SODIUM 50 MG/SENNA 8.6 MG TAB PO SCH ×2 (10:27→20:26)
[2016-12-17] MEDS: LACTULOSE SYRUP 20 GM/30 ML CUP PO PRN (10:35)
[2016-12-17] MEDS: VANCOMYCIN INJ 1,000 MG in SODIUM CHLOR 0.9% 250 ML INJ 250 ML IV SCH (11:07)
[2016-12-17] MEDS: SODIUM CHLOR 0.9% 1000 ML INJ 1,000 ML IV SCH (13:26)
--- NOTE | 2016-12-17 13:30 | HHI.PR ---
Subjective Remarks Follow-up Acute left femoral neck fracture 12/17/16-patient seen and examined, she status post ORIF. Pain currently controlled. Patient sitting in a chair. Daughter by the bedside Objective Vitals Vital Signs Date Time Temp Pulse Resp B/P (MAP) Pulse Ox O2 Delivery O2 Flow Rate FiO2 12/17/16 12:00 96.8 91 17 106/50 (68) 96 12/17/16 09:00 92 Nasal Cannula 1.00 12/17/16 08:00 98.9 89 17 95/47 (63) 96 12/17/16 04:00 97.7 80 16 101/52 (68) 95 12/17/16 00:00 98.1 87 17 120/64 (82) 96 12/16/16 20:08 97.0 89 16 113/58 (76) 98 12/16/16 19:45 93 13 109/55 (73) 98 Nasal Cannula 2 12/16/16 19:30 92 13 110/60 (77) 98 Nasal Cannula 2 12/16/16 19:15 96 16 120/72 (88) 99 Nasal Cannula 2 12/16/16 19:00 116 17 99/56 (70) 93 Nasal Cannula 2 12/16/16 18:44 97.7 104 18 110/58 (75) 94 Nasal Cannula 4 I/O 12/16/16 12/16/16 12/16/16 12/17/16 12/17/16 12/17/16 07:00 15:00 23:00 07:00 15:00 23:00 Intake Total 541 ml 495 ml 2270 ml 1156 ml Output Total 275 ml 800 ml 300 ml Balance 266 ml 495 ml 1470 ml 856 ml Intake Oral 120 ml 360 ml IV Total 541 ml 495 ml 450 ml 796 ml Other 1700 ml Output Urine Total 275 ml 450 ml 300 ml Estimated Blood Loss 350 ml Result Diagram: 12/17/16 0443 12/16/16 0629 Imaging Last Impressions Hip X-Ray 12/16/16 0000 Signed Impressions: Service Date/Time: December 17:44 - CONCLUSION: Limited images as detailed above. Mp Guillen Jr., MD Hip and Pelvis X-Ray 12/15/16 1248 Signed Impressions: Service Date/Time: Thursday, December 15, 2016 13:53 - CONCLUSION: There is an acute displaced and angulated fracture in the basicervical region of the left femoral neck with likely extension into the greater trochanter. Ortega Xiao MD Chest X-Ray 12/15/16 1248 Signed Impressions: Service Date/Time: Thursday, December 15, 2016 13:53 - CONCLUSION: No acute cardiopulmonary abnormality is identified. Ortega Xiao MD Head CT 12/15/16 0000 Signed Impressions: Service Date/Time: Thursday, December 15, 2016 13:27 - CONCLUSION: Dystrophic calcifications, otherwise negative for acute process. Mendoza Myers MD FACR Cervical Spine CT 12/15/16 0000 Signed Impressions: Service Date/Time: Thursday, December 15, 2016 13:27 - CONCLUSION: Marked exaggeration of normal cervical lordosis, negative for fracture. Mild degenerative changes. Mendoza Myers MD FACR Objective Remarks GENERAL: NAD and sitting in a chair SKIN: Warm and dry. Blisters to left heel as well as right buttocks HEAD: Normocephalic. EYES: No scleral icterus. No injection or drainage. NECK: Supple, trachea midline. No JVD or lymphadenopathy. CARDIOVASCULAR: Regular rate and rhythm without murmurs, gallops, or rubs. RESPIRATORY: Breath sounds equal bilaterally. No accessory muscle use. GASTROINTESTINAL: Abdomen soft, non-tender, nondistended. MUSCULOSKELETAL: No cyanosis, or edema. Status post left hip repair BACK: Nontender without obvious deformity. No CVA tenderness. Procedures 1-Open reduction internal fixation with suture of the greater trochanter 2- right hip intramedullary rafaela fixation A/P Problem List: (1) Hip fracture, left ICD Code: S72.002A - Fracture of unspecified part of neck of left femur, initial encounter for closed fracture (2) UTI (urinary tract infection) ICD Code: N39.0 - Urinary tract infection, site not specified (3) Dementia ICD Code: F03.90 - Unspecified dementia without behavioral disturbance Assessment and Plan 81-year-old female with Acute left femoral neck fracture Hip and pelvics x-ray with finding of left neck femoral fracture Orthopedic surgery appreciated Status post 1-Open reduction internal fixation with suture of the greater trochanter 2- right hip intramedullary rafaela fixation Pain management accordingly Urinary tract infection Abnormal UA continue Rocephin 1 g IV daily History of dementia, hyperlipidemia, hypertension Continue outpatient medications Blisters left heel and right buttocks Wound care consult pending DVT prophylaxis: Lovenox Discharge Planning Likely discharge within the next 48 hours Kostas Brooks MD Dec 17, 2016 13:30
[2016-12-17] MEDS: cefTRIAXone INJ 1,000 MG in SODIUM CHLORIDE 0.9% INJ 100 ML IV SCH (14:50)
--- NOTE | 2016-12-17 17:39 | PD.ORT.PN ---
Subjective Subjective Remarks No issues. Pain controlled Objective Vitals Vital Signs Date Time Temp Pulse Resp B/P (MAP) Pulse Ox O2 Delivery O2 Flow Rate FiO2 12/17/16 12:00 96.8 91 17 106/50 (68) 96 12/17/16 09:00 92 Nasal Cannula 1.00 12/17/16 08:00 98.9 89 17 95/47 (63) 96 12/17/16 04:00 97.7 80 16 101/52 (68) 95 12/17/16 00:00 98.1 87 17 120/64 (82) 96 12/16/16 20:08 97.0 89 16 113/58 (76) 98 12/16/16 19:45 93 13 109/55 (73) 98 Nasal Cannula 2 12/16/16 19:30 92 13 110/60 (77) 98 Nasal Cannula 2 12/16/16 19:15 96 16 120/72 (88) 99 Nasal Cannula 2 12/16/16 19:00 116 17 99/56 (70) 93 Nasal Cannula 2 12/16/16 18:44 97.7 104 18 110/58 (75) 94 Nasal Cannula 4 I/O 12/16/16 12/16/16 12/16/16 12/17/16 12/17/16 12/17/16 07:00 15:00 23:00 07:00 15:00 23:00 Intake Total 541 ml 495 ml 2270 ml 1156 ml 1254 ml Output Total 275 ml 800 ml 300 ml 200 ml Balance 266 ml 495 ml 1470 ml 856 ml 1054 ml Intake Oral 120 ml 360 ml 360 ml IV Total 541 ml 495 ml 450 ml 796 ml 894 ml Other 1700 ml Output Urine Total 275 ml 450 ml 300 ml 200 ml Estimated Blood Loss 350 ml # Bowel Movements 0 Result Diagram: 12/17/16 0443 12/16/16 0629 Objective Remarks demented Pulmonary: Normal respiratory effort. LEFT lower extremity: Neurovascularly intact, dressing clean, dry and intact. + PT/DP pulses. Supple compartments. Negative Homans sign. Assessment & Plan Assessment and Plan POD #1- left hip intertrochanteric rafaela fixation Patient is demented. No issues. DVT prophylaxis, Lovenox Weightbearing status: Nonweightbearing Dressing change: Change daily, by RN starting postop day 2 Dispo: Discharged to rehabilitation this weekend Peter Martin Jr., MD Dec 17, 2016 17:39
[2016-12-17] MEDS: ACETAMINOPHEN 325 MG TAB PO PRN (18:21)
--- NOTE | 2016-12-17 19:40 | PD.WCN.NOT ---
Wound Consult Description: Patient seen on [address] [place] [address] for evaluation of L heel and R buttock wound management Communicated with: CLAUDE Soni and PA for Pedro Lashay Andrews Recommendation: 1.Please apply skin prep to L heel BID and leave open to air. 2.Please apply heel raiser boots to bilateral feet 3. Cleanse partial thickness wounds to R buttock with normal saline and apply skin prep to unopened deep tissue injury on sacral area daily Cover open wound with bordered gauze and change dressing daily. 4. Please order K4 bed from [facility] 5. Turn patient every 2 hours and PRN for comfort and offloading pressure Additional Information: Patient seen on [address] [place] [address] for evaluation of wound management of L heel and R buttock around 1800. Patient is noted with dry deflated blister to L heel. Blister is no longer draining and was a serum filled blister. Skin is still intact. Serum filled blisters over a shannon prominence indicates stage 2 pressure injury.Blister measures ~2cm x ~2cm.Painted L heel blister with skin prep and left open to air. Patient was then positioned to R side with the assistance of CLAUDE Soni [address] [place] [address] to reveal defuse small areas of partial thickness skin loss, that appear to be moisture related to R inner buttock. Area of non blanchable purple discoloration is noted over Sacrum, indicating deep tissue injury. Wound measures ~2cm x ~3cm. Painted unopened deep tissue injury with skin prep covered partial thickness skin loss top R buttock near DTI with bordered gauze after cleaning with normal saline and patting dry. Patient positioned off bottom using pillows to offload pressure from shannon prominences. Mindy Rod[facility]guez [facility] Dec 17, 2016 19:39
[2016-12-17] MEDS: ATORVASTATIN 40 MG TAB PO SCH (20:26)
[2016-12-18] VITALS: BP 99/60; PULSE 93; RESP 16; TEMP 97.7; O2SAT 97
[2016-12-18] MEDS: SODIUM CHLOR 0.9% 1000 ML INJ 1,000 ML IV SCH ×2 (01:46→11:50)
[2016-12-18] MEDS: LACTULOSE SYRUP 20 GM/30 ML CUP PO PRN (05:31)
[2016-12-18] MEDS: LEVOTHYROXINE SODIUM 50 MCG TAB PO SCH (05:31)
[2016-12-18] MEDS: ENOXAPARIN SODIUM 30 MG/0.3 ML SYRINGE SQ SCH ×2 (05:49→16:47)
[2016-12-18] MEDS: DOCUSATE SODIUM 50 MG/SENNA 8.6 MG TAB PO SCH ×3 (07:45→21:25)
[2016-12-18] MEDS: DONEPEZIL HCL 5 MG TAB PO SCH ×2 (07:59→21:24)
[2016-12-18 08:00] VITALS: BP 110/59; PULSE 81; RESP 20; TEMP 97.7; O2SAT 95
[2016-12-18] MEDS: SODIUM CHLORIDE 0.9% FLUSH 10 ML FLUSH IV FLUSH SCH ×2 (08:04→21:24)
--- NOTE | 2016-12-18 09:45 | PD.ORT.PN ---
Subjective Subjective Remarks Patient is demented. Patient appears to be sleeping. Unable to answer questions. Objective Vitals Vital Signs Date Time Temp Pulse Resp B/P (MAP) Pulse Ox O2 Delivery O2 Flow Rate FiO2 12/18/16 08:00 97.7 81 20 110/59 (76) 95 12/18/16 00:00 97.7 93 16 99/60 (73) 97 12/17/16 22:23 93 Nasal Cannula 1.00 12/17/16 20:00 98.0 91 17 102/49 (66) 95 12/17/16 16:00 99.7 91 17 99/50 (66) 93 12/17/16 12:00 96.8 91 17 106/50 (68) 96 I/O 12/17/16 12/17/16 12/17/16 12/18/16 12/18/16 12/18/16 07:00 15:00 23:00 07:00 15:00 23:00 Intake Total 1156 ml 1254 ml 976 ml 240 ml Output Total 300 ml 200 ml 100 ml Balance 856 ml 1054 ml 876 ml 240 ml Intake Oral 360 ml 360 ml 480 ml 240 ml IV Total 796 ml 894 ml 496 ml Output Urine Total 300 ml 200 ml 100 ml # Voids 1 2 # Bowel Movements 0 1 Result Diagram: 12/17/16 0443 12/16/16 0629 Objective Remarks demented Left lower extremity: dressing clean, dry and intact. 2+ dorsalis pedis pulses. calves soft. Assessment & Plan Assessment and Plan POD #2- left hip intertrochanteric rafaela fixation DVT prophylaxis, Lovenox Weightbearing status: Nonweightbearing Dressing change: Change daily, by RN starting postop day 2 Orthopedically stable for discharge. Will need medical clearance Dispo: anticipating SNF F/u in [address] Martin in office Parminder Lopez Dec 18, 2016 09:45
[2016-12-18 12:00] VITALS: BP 105/51; PULSE 79; RESP 20; TEMP 96; O2SAT 96
--- NOTE | 2016-12-18 12:12 | HHI.PR ---
Subjective Remarks Follow-up Acute left femoral neck fracture 12/17/16-patient seen and examined, she status post ORIF. Pain currently controlled. Patient sitting in a chair. Daughter by the bedside 12/18/16-patient seen and examined, drowsy and sleeping this morning. Vitals stable. Objective Vitals Vital Signs Date Time Temp Pulse Resp B/P (MAP) Pulse Ox O2 Delivery O2 Flow Rate FiO2 12/18/16 10:11 Nasal Cannula 2.00 12/18/16 08:00 97.7 81 20 110/59 (76) 95 12/18/16 00:00 97.7 93 16 99/60 (73) 97 12/17/16 22:23 93 Nasal Cannula 1.00 12/17/16 20:00 98.0 91 17 102/49 (66) 95 12/17/16 16:00 99.7 91 17 99/50 (66) 93 I/O 12/17/16 12/17/16 12/17/16 12/18/16 12/18/16 12/18/16 07:00 15:00 23:00 07:00 15:00 23:00 Intake Total 1156 ml 1254 ml 976 ml 240 ml Output Total 300 ml 200 ml 100 ml Balance 856 ml 1054 ml 876 ml 240 ml Intake Oral 360 ml 360 ml 480 ml 240 ml IV Total 796 ml 894 ml 496 ml Output Urine Total 300 ml 200 ml 100 ml # Voids 1 2 # Bowel Movements 0 1 Result Diagram: 12/17/16 0443 12/16/16 0629 Imaging Last Impressions Hip X-Ray 12/16/16 0000 Signed Impressions: Service Date/Time: December 17:44 - CONCLUSION: Limited images as detailed above. Mp Guillen Jr., MD Hip and Pelvis X-Ray 12/15/16 1248 Signed Impressions: Service Date/Time: Thursday, December 15, 2016 13:53 - CONCLUSION: There is an acute displaced and angulated fracture in the basicervical region of the left femoral neck with likely extension into the greater trochanter. Ortega Xiao MD Chest X-Ray 12/15/16 1248 Signed Impressions: Service Date/Time: Thursday, December 15, 2016 13:53 - CONCLUSION: No acute cardiopulmonary abnormality is identified. Ortega Xiao MD Head CT 12/15/16 0000 Signed Impressions: Service Date/Time: Thursday, December 15, 2016 13:27 - CONCLUSION: Dystrophic calcifications, otherwise negative for acute process. Mendoza Myers MD FACR Cervical Spine CT 12/15/16 0000 Signed Impressions: Service Date/Time: Thursday, December 15, 2016 13:27 - CONCLUSION: Marked exaggeration of normal cervical lordosis, negative for fracture. Mild degenerative changes. Mendoza Myers MD FACR Objective Remarks GENERAL: NAD SKIN: Warm and dry. Blisters to left heel as well as right buttocks HEAD: Normocephalic. EYES: No scleral icterus. No injection or drainage. NECK: Supple, trachea midline. No JVD or lymphadenopathy. CARDIOVASCULAR: Regular rate and rhythm without murmurs, gallops, or rubs. RESPIRATORY: Breath sounds equal bilaterally. No accessory muscle use. GASTROINTESTINAL: Abdomen soft, non-tender, nondistended. MUSCULOSKELETAL: No cyanosis, or edema. Status post left hip repair BACK: Nontender without obvious deformity. No CVA tenderness. Procedures 1-Open reduction internal fixation with suture of the greater trochanter 2- right hip intramedullary rafaela fixation A/P Problem List: (1) Hip fracture, left ICD Code: S72.002A - Fracture of unspecified part of neck of left femur, initial encounter for closed fracture (2) UTI (urinary tract infection) ICD Code: N39.0 - Urinary tract infection, site not specified (3) Dementia ICD Code: F03.90 - Unspecified dementia without behavioral disturbance Assessment and Plan 81-year-old female with Acute left femoral neck fracture Hip and pelvics x-ray with finding of left neck femoral fracture Orthopedic surgery appreciated Status post 1-Open reduction internal fixation with suture of the greater trochanter 2- right hip intramedullary rafaela fixation Pain management accordingly Urinary tract infection Discontinue Rocephin 1 g IV daily Start Macrobid 100 mg by mouth twice a day 7 days History of dementia, hyperlipidemia, hypertension Continue outpatient medications Blisters left heel and right buttocks Wound care consult appreciated DVT prophylaxis: Lovenox Discharge Planning Likely discharge within the next 48 hours Kostas Brooks MD Dec 18, 2016 12:12
[2016-12-18] MEDS ORDERED: PERI PO (12:14)
[2016-12-18] MEDS ORDERED: NITR100C4 PO (12:14)
--- NOTE | 2016-12-18 12:16 | HHI.DS ---
Discharge Summary Admission Date Dec 15, 2016 at 15:26 Discharge Date: Dec 18, 2016 Admitting Diagnosis left hip fracture, UTI (1) Hip fracture, left ICD Code: S72.002A - Fracture of unspecified part of neck of left femur, initial encounter for closed fracture (2) UTI (urinary tract infection) ICD Code: N39.0 - Urinary tract infection, site not specified (3) Dementia ICD Code: F03.90 - Unspecified dementia without behavioral disturbance Procedures 1-Open reduction internal fixation with suture of the greater trochanter 2- right hip intramedullary rafaela fixation Brief History - From Admission 81 year-old female with history of dementia was brought to the ED for evaluation of left hip pain 4 days duration. Apparently about 4 days ago, patient woke up from sleep and wandered outside, however she suffered an unwitnessed fall. Patient is a poor historian as the history is mainly provided by her daughter, who stated that patient has been complaining of left hip every times she moves or stand up. She was given a be aspirin over the past 4 days, without any significant improvement. Patient's PCP advise for a visit to the ED. While in the ED, hip and pelvis x-ray revealing left femoral neck fracture. Abnormal labs also include UA. Patient is quite somnolent during my exam. Per her daughter, she's had decrease by mouth intake CBC/BMP: 12/17/16 0443 12/16/16 0629 Significant Findings Laboratory Tests Test 12/15/16 12:50 12/15/16 13:20 12/15/16 13:40 12/16/16 06:29 Eosinophils (%) (Auto) 5.9 % (0.0-4.0) 7.7 % (0.0-4.0) Eosinophils # (Auto) 0.6 TH/MM3 (0-0.4) 0.7 TH/MM3 (0-0.4) Urine Turbidity HAZY (CLEAR) Urine Occult Blood TRACE (NEG) Urine Leukocyte Esterase LARGE (NEG) Urine WBC 90 /hpf (0-5) Urine WBC Clumps MANY (NONE) Urine Bacteria RARE /hpf (NONE) Urine Mucus FEW /lpf (OCC) Albumin 2.4 GM/DL (3.4-5.0) 2.2 GM/DL (3.4-5.0) Aspartate Amino Transf (AST/SGOT) 42 U/L (15-37) Total Bilirubin 1.1 MG/DL (0.2-1.0) Sodium Level 134 MEQ/L (136-145) Estimat Glomerular Filtration Rate 77 ML/MIN (>89) 74 ML/MIN (>89) Red Blood Count 3.80 MIL/MM3 (4.00-5.30) Hematocrit 34.5 % (35.0-46.0) Total Protein 6.3 GM/DL (6.4-8.2) Calcium Level 8.1 MG/DL (8.5-10.1) Potassium Level 3.4 MEQ/L (3.5-5.1) Test 12/17/16 04:43 Hemoglobin 9.7 GM/DL (11.6-15.3) Hematocrit 28.5 % (35.0-46.0) Imaging Last Impressions Hip X-Ray 12/16/16 0000 Signed Impressions: Service Date/Time: December 17:44 - CONCLUSION: Limited images as detailed above. Mp Guillen Jr., MD Hip and Pelvis X-Ray 12/15/168 Signed Impressions: Service Date/Time: Thursday, December 15, 2016 13:53 - CONCLUSION: There is an acute displaced and angulated fracture in the basicervical region of the left femoral neck with likely extension into the greater trochanter. Ortega Xiao MD Chest X-Ray 12/15/16 1248 Signed Impressions: Service Date/Time: Thursday, December 15, 2016 13:53 - CONCLUSION: No acute cardiopulmonary abnormality is identified. Ortega Xiao MD Head CT 12/15/16 0000 Signed Impressions: Service Date/Time: Thursday, December 15, 2016 13:27 - CONCLUSION: Dystrophic calcifications, otherwise negative for acute process. Mendoza Myers MD FACR Cervical Spine CT 12/15/16 0000 Signed Impressions: Service Date/Time: Thursday, December 15, 2016 13:27 - CONCLUSION: Marked exaggeration of normal cervical lordosis, negative for fracture. Mild degenerative changes. Mendoza Myers MD FACR PE at Discharge GENERAL: NAD SKIN: Warm and dry. Blisters to left heel as well as right buttocks HEAD: Normocephalic. EYES: No scleral icterus. No injection or drainage. NECK: Supple, trachea midline. No JVD or lymphadenopathy. CARDIOVASCULAR: Regular rate and rhythm without murmurs, gallops, or rubs. RESPIRATORY: Breath sounds equal bilaterally. No accessory muscle use. GASTROINTESTINAL: Abdomen soft, non-tender, nondistended. MUSCULOSKELETAL: No cyanosis, or edema. Status post left hip repair BACK: Nontender without obvious deformity. No CVA tenderness. Hospital Course Patient admitted with a left hip fracture for which orthopedic surgery was consulted and she underwent left total hip arthroplasty. Postoperatively pain management was provided and DVT prophylaxis was started. PT was consulted. Patient was also started on IV Rocephin for UTI and she will be switched to by mouth Macrobid 100 mg by mouth twice a day 7 days. She was continued on her treatment for other chronic medical condition including dementia. Prior to discharge, patient's conditions improved and vitals remained stable. Pt Condition on Discharge: Fair Discharge Disposition: Discharge to SNF Discharge Time: > 30 minutes Discharge Instructions DIET: Follow Instructions for: Heart Healthy Diet Activities you can perform: Non Weight Bearing Follow up Referrals: Orthopedics - 2 Weeks @ [facility] with Peter Martin Jr., MD PCP Follow-up - 2-3 Days New Medications: Oxycodone-Acetaminophen (Percocet) 5-325 mg Tab 1 TAB PO Q4H PRN for PAIN, #60 TAB 0 Refills Nitrofurantoin Monohydrate Macrocrystals (Nitrofurantoin Monohydrate Macrocrystals) 100 Mg Cap 100 MG PO BIDPC for Infection, #14 CAP Sennosides-Docusate Sodium (Gnp Senna Plus 8.6-50 mg) 8.6 Mg-50 Mg Tab 1 TAB PO BID for Bowel Management, #20 TAB Continued Medications: Atorvastatin (Atorvastatin) 40 Mg Tab 40 MG PO HS for Cholesterol Management, #30 TAB 0 Refills Donepezil (Donepezil) 10 Mg Tab 10 MG PO BID for Dementia, #30 TAB 0 Refills Levothyroxine (Levothyroxine) 50 Mcg Tab 50 MCG PO DAILY for Thyroid, #30 TAB 0 Refills PonKostas guillaume MD Dec 18, 2016 12:16
[2016-12-18 16:00] VITALS: BP 121/79; PULSE 87; RESP 20; TEMP 98.4; O2SAT 96
[2016-12-18] MEDS: NITROFURANTOIN MONOHYD MACROCR 100 MG CAP PO SCH (16:47)
[2016-12-18 20:13] VITALS: BP 98/53; PULSE 81; RESP 16; TEMP 98.4; O2SAT 96
[2016-12-18] MEDS: ATORVASTATIN 40 MG TAB PO SCH (21:25)
[2016-12-19] VITALS (8 sets, daily range): BP systolic 97–117; BP diastolic 48–67; PULSE 72–81; RESP 16–17; TEMP 96.3–98.7; O2SAT 96–100
[2016-12-19] MEDS: ENOXAPARIN SODIUM 30 MG/0.3 ML SYRINGE SQ SCH ×2 (06:07→15:23)
[2016-12-19] MEDS: LEVOTHYROXINE SODIUM 50 MCG TAB PO SCH (06:07)
[2016-12-19] MEDS: NITROFURANTOIN MONOHYD MACROCR 100 MG CAP PO SCH ×2 (08:23→15:23)
[2016-12-19] MEDS: DONEPEZIL HCL 5 MG TAB PO SCH ×2 (08:23→21:00)
[2016-12-19] MEDS: DOCUSATE SODIUM 50 MG/SENNA 8.6 MG TAB PO SCH ×2 (08:23→21:00)
[2016-12-19] MEDS: SODIUM CHLORIDE 0.9% FLUSH 10 ML FLUSH IV FLUSH SCH ×2 (08:24→21:00)
--- NOTE | 2016-12-19 09:10 | PD.ORT.PN ---
Subjective Subjective Remarks Patient is demented. Awake. Unable to answer questions. Objective Vitals Vital Signs Date Time Temp Pulse Resp B/P (MAP) Pulse Ox O2 Delivery O2 Flow Rate FiO2 12/19/16 08:00 97.7 76 17 117/55 (75) 100 12/19/16 04:45 97.1 72 16 107/56 (73) 97 12/19/16 00:41 98.3 74 16 97/52 (67) 96 12/18/16 20:13 98.4 81 16 98/53 (68) 96 12/18/16 16:00 98.4 87 20 121/79 (93) 96 12/18/16 12:00 96.0 79 20 105/51 (69) 96 12/18/16 10:11 Nasal Cannula 2.00 I/O 12/18/16 12/18/16 12/18/16 12/19/16 12/19/16 12/19/16 07:00 15:00 23:00 07:00 15:00 23:00 Intake Total 240 ml 585 ml 0 ml Balance 240 ml 585 ml 0 ml Intake Oral 240 ml 240 ml 0 ml IV Total 345 ml # Voids 2 4 3 # Bowel Movements 1 2 1 Result Diagram: 12/17/16 0443 12/16/16 0629 Objective Remarks demented Left lower extremity: dressing clean, dry and intact. 2+ dorsalis pedis pulses. calves soft. Assessment & Plan Assessment and Plan POD #3- left hip intertrochanteric rafaela fixation DVT prophylaxis, Lovenox Weightbearing status: Nonweightbearing Dressing change: Change daily, by RN starting postop day 2 Orthopedically stable for discharge. Dispo: anticipating SNF on Tuesday (waiting for bed availability) F/u in [address] Martin in office Parminder Lopez Dec 19, 2016 09:10
--- NOTE | 2016-12-19 09:47 | HHI.PR ---
Subjective Remarks Follow-up Acute left femoral neck fracture 12/17/16-patient seen and examined, she status post ORIF. Pain currently controlled. Patient sitting in a chair. Daughter by the bedside 12/18/16-patient seen and examined, drowsy and sleeping this morning. Vitals stable. 12/19/16-patient seen and examined, alert but quite forgetful. No acute event overnight. Objective Vitals Vital Signs Date Time Temp Pulse Resp B/P (MAP) Pulse Ox O2 Delivery O2 Flow Rate FiO2 12/19/16 09:07 100 Nasal Cannula 2.00 12/19/16 08:00 97.7 76 17 117/55 (75) 100 12/19/16 04:45 97.1 72 16 107/56 (73) 97 12/19/16 00:41 98.3 74 16 97/52 (67) 96 12/18/16 20:13 98.4 81 16 98/53 (68) 96 12/18/16 16:00 98.4 87 20 121/79 (93) 96 12/18/16 12:00 96.0 79 20 105/51 (69) 96 12/18/16 10:11 Nasal Cannula 2.00 I/O 12/18/16 12/18/16 12/18/16 12/19/16 12/19/16 12/19/16 07:00 15:00 23:00 07:00 15:00 23:00 Intake Total 240 ml 585 ml 0 ml Balance 240 ml 585 ml 0 ml Intake Oral 240 ml 240 ml 0 ml IV Total 345 ml # Voids 2 4 3 # Bowel Movements 1 2 1 Result Diagram: 12/17/16 0443 12/16/16 0629 Objective Remarks GENERAL: NAD SKIN: Warm and dry. Blisters to left heel as well as right buttocks HEAD: Normocephalic. EYES: No scleral icterus. No injection or drainage. NECK: Supple, trachea midline. No JVD or lymphadenopathy. CARDIOVASCULAR: Regular rate and rhythm without murmurs, gallops, or rubs. RESPIRATORY: Breath sounds equal bilaterally. No accessory muscle use. GASTROINTESTINAL: Abdomen soft, non-tender, nondistended. MUSCULOSKELETAL: No cyanosis, or edema. Status post left hip repair BACK: Nontender without obvious deformity. No CVA tenderness. Procedures 1-Open reduction internal fixation with suture of the greater trochanter 2- right hip intramedullary rafaela fixation A/P Problem List: (1) Hip fracture, left ICD Code: S72.002A - Fracture of unspecified part of neck of left femur, initial encounter for closed fracture (2) UTI (urinary tract infection) ICD Code: N39.0 - Urinary tract infection, site not specified (3) Dementia ICD Code: F03.90 - Unspecified dementia without behavioral disturbance Assessment and Plan 81-year-old female with Acute left femoral neck fracture Hip and pelvics x-ray with finding of left neck femoral fracture Orthopedic surgery appreciated Status post 1-Open reduction internal fixation with suture of the greater trochanter 2- right hip intramedullary rafaela fixation Pain management accordingly Urinary tract infection s/p Rocephin 1 g IV daily Continue Macrobid 100 mg by mouth twice a day 7 days History of dementia, hyperlipidemia, hypertension Continue outpatient medications Blisters left heel and right buttocks Wound care consult appreciated DVT prophylaxis: Lovenox Discharge Planning [facility] when arrangement is made Kostas Brooks MD Dec 19, 2016 09:47
[2016-12-19] MEDS: ATORVASTATIN 40 MG TAB PO SCH (21:00)
[2016-12-20] VITALS (7 sets, daily range): BP systolic 88–116; BP diastolic 51–59; PULSE 71–84; RESP 16–18; TEMP 96–98.6; O2SAT 92–97
[2016-12-20] MEDS: ENOXAPARIN SODIUM 30 MG/0.3 ML SYRINGE SQ SCH ×2 (06:00→18:23)
[2016-12-20] MEDS: SODIUM CHLORIDE 0.9% FLUSH 10 ML FLUSH IV FLUSH SCH ×2 (10:03→22:25)
[2016-12-20] MEDS: DONEPEZIL HCL 5 MG TAB PO SCH ×2 (10:03→22:26)
[2016-12-20] MEDS: NITROFURANTOIN MONOHYD MACROCR 100 MG CAP PO SCH ×2 (10:03→18:23)
[2016-12-20] MEDS: DOCUSATE SODIUM 50 MG/SENNA 8.6 MG TAB PO SCH ×2 (10:03→22:27)
[2016-12-20] MEDS: LEVOTHYROXINE SODIUM 50 MCG TAB PO SCH (10:04)
--- NOTE | 2016-12-20 10:54 | HHI.PR ---
Subjective Remarks Follow-up Acute left femoral neck fracture 12/17/16-patient seen and examined, she status post ORIF. Pain currently controlled. Patient sitting in a chair. Daughter by the bedside 12/18/16-patient seen and examined, drowsy and sleeping this morning. Vitals stable. 12/19/16-patient seen and examined, alert but quite forgetful. No acute event overnight. 12/20/16-patient seen and examined, no acute event overnight, stable, afebrile, Objective Vitals Vital Signs Date Time Temp Pulse Resp B/P (MAP) Pulse Ox O2 Delivery O2 Flow Rate FiO2 12/20/16 08:00 97.5 71 18 109/55 (73) 93 12/20/16 07:16 92 21 12/20/16 04:30 97.3 76 16 102/51 (68) 95 12/20/16 00:18 98.6 75 16 97/58 (71) 96 12/19/16 20:36 98.7 76 16 108/51 (70) 96 12/19/16 18:34 97 12/19/16 15:24 97.4 79 16 115/48 (70) 97 12/19/16 15:24 97 Room Air 12/19/16 12:00 96.3 81 17 115/67 (83) 99 I/O 12/19/16 12/19/16 12/19/16 12/20/16 12/20/16 12/20/16 07:00 15:00 23:00 07:00 15:00 23:00 Intake Total 0 ml 240 ml 120 ml 60 ml Balance 0 ml 240 ml 120 ml 60 ml Intake Oral 0 ml 240 ml 120 ml 60 ml # Voids 3 3 2 2 # Bowel Movements 1 2 1 1 Result Diagram: 12/17/16 0443 12/16/16 0629 Objective Remarks GENERAL: NAD SKIN: Warm and dry. Blisters to left heel as well as right buttocks HEAD: Normocephalic. EYES: No scleral icterus. No injection or drainage. NECK: Supple, trachea midline. No JVD or lymphadenopathy. CARDIOVASCULAR: Regular rate and rhythm without murmurs, gallops, or rubs. RESPIRATORY: Breath sounds equal bilaterally. No accessory muscle use. GASTROINTESTINAL: Abdomen soft, non-tender, nondistended. MUSCULOSKELETAL: No cyanosis, or edema. Status post left hip repair BACK: Nontender without obvious deformity. No CVA tenderness. Procedures 1-Open reduction internal fixation with suture of the greater trochanter 2- right hip intramedullary rafaela fixation A/P Problem List: (1) Hip fracture, left ICD Code: S72.002A - Fracture of unspecified part of neck of left femur, initial encounter for closed fracture (2) UTI (urinary tract infection) ICD Code: N39.0 - Urinary tract infection, site not specified (3) Dementia ICD Code: F03.90 - Unspecified dementia without behavioral disturbance Assessment and Plan 81-year-old female with Acute left femoral neck fracture Hip and pelvics x-ray with finding of left neck femoral fracture Orthopedic surgery appreciated Status post 1-Open reduction internal fixation with suture of the greater trochanter 2- right hip intramedullary rafaela fixation Pain management accordingly Urinary tract infection s/p Rocephin 1 g IV daily Continue Macrobid 100 mg by mouth twice a day 7 days total History of dementia, hyperlipidemia, hypertension Continue outpatient medications Blisters left heel and right buttocks Wound care consult appreciated DVT prophylaxis: Lovenox Discharge Planning [facility] when arrangement is made Kostas Brooks MD Dec 20, 2016 10:54
[2016-12-20] MEDS: ATORVASTATIN 40 MG TAB PO SCH (22:26)
[2016-12-21 00:35] VITALS: BP 115/57; PULSE 75; RESP 16; TEMP 96.9; O2SAT 97
[2016-12-21 04:50] VITALS: BP 110/59; PULSE 73; RESP 16; TEMP 96.6; O2SAT 96
[2016-12-21] MEDS: ENOXAPARIN SODIUM 30 MG/0.3 ML SYRINGE SQ SCH (06:25)
[2016-12-21] MEDS: LEVOTHYROXINE SODIUM 50 MCG TAB PO SCH (06:25)
[2016-12-21 07:24] VITALS: BP 116/58; PULSE 71; RESP 18; TEMP 95.7; O2SAT 93
[2016-12-21] MEDS: SODIUM CHLORIDE 0.9% FLUSH 10 ML FLUSH IV FLUSH SCH (09:00)
[2016-12-21] MEDS: NITROFURANTOIN MONOHYD MACROCR 100 MG CAP PO SCH (09:00)
[2016-12-21] MEDS: DONEPEZIL HCL 5 MG TAB PO SCH (09:02)
[2016-12-21] MEDS: DOCUSATE SODIUM 50 MG/SENNA 8.6 MG TAB PO SCH (09:02)
--- NOTE | 2016-12-21 10:05 | HHI.PR ---
Subjective Remarks Follow-up Acute left femoral neck fracture 12/17/16-patient seen and examined, she status post ORIF. Pain currently controlled. Patient sitting in a chair. Daughter by the bedside 12/18/16-patient seen and examined, drowsy and sleeping this morning. Vitals stable. 12/19/16-patient seen and examined, alert but quite forgetful. No acute event overnight. 12/20/16-patient seen and examined, no acute event overnight, stable, afebrile, 12/21/16-patient seen and examined, stable and no complaints. Likely discharge today to SNF Objective Vitals Vital Signs Date Time Temp Pulse Resp B/P (MAP) Pulse Ox O2 Delivery O2 Flow Rate FiO2 12/21/16 07:24 95.7 71 18 116/58 (77) 93 12/21/16 04:50 96.6 73 16 110/59 (76) 96 12/21/16 02:52 Room Air 12/21/16 00:35 96.9 75 16 115/57 (76) 97 12/20/16 20:50 96.5 76 16 116/53 (74) 97 12/20/16 16:00 97.1 80 18 111/59 (76) 95 12/20/16 12:00 96.0 84 18 88/52 (64) 94 I/O 12/20/16 12/20/16 12/20/16 12/21/16 12/21/16 12/21/16 07:00 15:00 23:00 07:00 15:00 23:00 Intake Total 60 ml 240 ml 120 ml 120 ml Balance 60 ml 240 ml 120 ml 120 ml Intake Oral 60 ml 240 ml 120 ml 120 ml # Voids 2 3 2 3 # Bowel Movements 1 1 1 1 Result Diagram: 12/17/16 0443 Objective Remarks GENERAL: NAD SKIN: Warm and dry. Blisters to left heel as well as right buttocks HEAD: Normocephalic. EYES: No scleral icterus. No injection or drainage. NECK: Supple, trachea midline. No JVD or lymphadenopathy. CARDIOVASCULAR: Regular rate and rhythm without murmurs, gallops, or rubs. RESPIRATORY: Breath sounds equal bilaterally. No accessory muscle use. GASTROINTESTINAL: Abdomen soft, non-tender, nondistended. MUSCULOSKELETAL: No cyanosis, or edema. Status post left hip repair BACK: Nontender without obvious deformity. No CVA tenderness. Procedures 1-Open reduction internal fixation with suture of the greater trochanter 2- right hip intramedullary rafaela fixation A/P Problem List: (1) Hip fracture, left ICD Code: S72.002A - Fracture of unspecified part of neck of left femur, initial encounter for closed fracture (2) UTI (urinary tract infection) ICD Code: N39.0 - Urinary tract infection, site not specified (3) Dementia ICD Code: F03.90 - Unspecified dementia without behavioral disturbance Assessment and Plan 81-year-old female with Acute left femoral neck fracture Hip and pelvics x-ray with finding of left neck femoral fracture Orthopedic surgery appreciated Status post 1-Open reduction internal fixation with suture of the greater trochanter 2- right hip intramedullary rafaela fixation Pain management accordingly Cleared by all to for discharge Urinary tract infection s/p Rocephin 1 g IV daily Continue Macrobid 100 mg by mouth twice a day 7 days total History of dementia, hyperlipidemia, hypertension Continue outpatient medications Blisters left heel and right buttocks Wound care consult appreciated DVT prophylaxis: Lovenox Discharge Planning [facility] when arrangement is made Kostas Brooks MD Dec 21, 2016 10:05
[2016-12-21 11:39] VITALS: BP 122/59; PULSE 70; RESP 18; TEMP 96.8; O2SAT 96
== END 2016-12-21 14:03 | DRG 481 ==
LOC: NEPC 12:34 → NEDA 15:26 → N06A 16:24
PROVIDERS: ADMIT Hospitalist; ATTEND Hospitalist
PROC: 0QS604Z Reposition Right Upper Femur with Internal Fixation Device, Open Approach (ICD-10-PCS; 2016-12-16)
PROC: 0QS606Z Reposition Right Upper Femur with Intramedullary Internal Fixation Device, Open Approach (ICD-10-PCS; principal; 2016-12-16 15:02)
DX: S72.111A Displaced fracture of greater trochanter of right femur, initial encounter for closed fracture (principal); S72.001A Fracture of unspecified part of neck of right femur, initial encounter for closed fracture; W19.XXXA Unspecified fall, initial encounter; N39.0 Urinary tract infection, site not specified; G30.9 Alzheimer's disease, unspecified; F02.80 Dementia in other diseases classified elsewhere, unspecified severity, without behavioral disturbance, psychotic disturbance, mood disturbance, and anxiety; I12.9 Hypertensive chronic kidney disease with stage 1 through stage 4 chronic kidney disease, or unspecified chronic kidney disease; N18.3 Chronic kidney disease, stage 3 (moderate); E55.9 Vitamin D deficiency, unspecified; M81.0 Age-related osteoporosis without current pathological fracture; E03.9 Hypothyroidism, unspecified; E78.5 Hyperlipidemia, unspecified
CPT/HCPCS: 51702; 70450; 71010; 72125; 73502; 76000; 80053; 81001; 85014; 85018; 85025; 85610; 85730; 86850; 86900; 86901; 87077; 87086; 87186; 93005; 96374; J0131; J0690; J0696; J1580; J1650; J2270; J2370; J2405; J2710; J3010; J3370; J7030; J7050

== ENCOUNTER 2017-03-12 14:30 | Inpatient (IN) | payer MEDICARE, OTHER ==
[~2017-03-12] VITALS: Ht 170.2 cm; Wt 54.0 kg
[~2017-03-12 14:30] MED LIST: ATOR40TA16 PO; DONE10TA7 PO; LEVO50TA4 PO; NITR100C4 PO; PERC5TAB12 PO; PERI PO
[2017-03-12 14:35] VITALS: BP 119/83; PULSE 87; RESP 50; TEMP 99.5; O2SAT 93
[2017-03-12 15:17] LABS: AUTOMATED NEUTROPHIL # 3.3 TH/MM3 (1.8-7.7); BASOPHIL % 0.3 % (0.0-2.0); EOSINOPHIL % 0.1 % (0.0-4.0); HEMATOCRIT 36.7 % (35.0-46.0); HEMOGLOBIN 12.9 GM/DL (11.6-15.3); LYMPH % 47.1 % (9.0-44.0); LYMPHOCYTE # 3.4 TH/MM3 (1.0-4.8); MEAN CELL VOLUME 86.4 FL (80.0-100.0); MEAN CORPUSCULAR HEMOGLOBIN 30.5 PG (27.0-34.0); MEAN CORPUSCULAR HGB CONC 35.3 % (32.0-36.0); MEAN PLATELET VOLUME 7.9 FL (7.0-11.0); MONO % 6.7 % (0.0-8.0); MONOCYTE # 0.5 TH/MM3 (0-0.9); NEUT % 45.8 % (16.0-70.0); PLATELET COUNT 224 TH/MM3 (150-450); RED BLOOD COUNT 4.25 MIL/MM3 (4.00-5.30); RED CELL DISTRIBUTION WIDTH 15.7 % (11.6-17.2); WHITE BLOOD COUNT 7.2 TH/MM3 (4.0-11.0)
--- NOTE | 2017-03-12 15:21 | RADRPT ---
EXAM DATE/TIME: 03/12/2017 15:07 [facility] COMPARISON: CT BRAIN W/O CONTRAST, December 15, 2016, 13:27. INDICATIONS : Altered mental status. RADIATION DOSE: 31.06 CTDIvol (mGy) MEDICAL HISTORY : Alzheimer's Cardiovascular disease Hypertension. SURGICAL HISTORY : None. ENCOUNTER: Initial ACUITY: 1 day PAIN SCALE: Non-responsive LOCATION: cranial TECHNIQUE: Multiple contiguous axial images were obtained of the head. Using automated exposure control and adj ustment of the mA and/or kV according to patient size, radiation dose was kept as low as reasonably a chievable to obtain optimal diagnostic quality images. DICOM format image data is available electro nically for review and comparison. FINDINGS: There is no evidence for intracranial hemorrhage, mass effect, mass lesions, or edema. The visualize d bony structures appear intact. Moderate degree of brain atrophy is seen. Moderate periventricular white matter changes are seen nonspecific mostly consistent with chronic small vessel ischemic change s. There are no signs of acute infarction for technique. A thickening and calcifications and dentate gyri calcifications are again seen chronic in nature. CONCLUSION: Chronic and small vessel ischemic changes without any evidence for acute hemorrhage o r mass effect. Marito Aceves MD on March 12, 2017 at 15:17 Board Certified Radiologist. This report was verified electronically.
--- NOTE | 2017-03-12 15:30 | RADRPT ---
EXAM DATE/TIME: 03/12/2017 15:15 [facility] COMPARISON: CHEST SINGLE AP, December 15, 2016, 13:53. INDICATIONS : Shortness of breath. MEDICAL HISTORY : Alzheimer's cardiovascular disease hypertension. SURGICAL HISTORY : None. ENCOUNTER: Initial ACUITY: 1 day PAIN SCORE: Non-responsive. LOCATION: Bilateral chest FINDINGS: The lungs are clear without infiltrate, nodule, or mass. There is no appreciable pleural effusion fo r technique. Heart and mediastinum are unremarkable. There are atherosclerotic calcifications of the aorta due to chronic atherosclerotic disease. Degenerative changes and hypertrophic changes are seen within the disc space and facets of the thoracic spine with scoliosis convexity towards the right. CONCLUSION: No acute cardiopulmonary disease. Marito Aceves MD on March 12, 2017 at 15:27 Board Certified Radiologist. This report was verified electronically.
[2017-03-12 15:43] LABS: AMORPHOUS SEDIMENT, URINE RARE; BILIRUBIN, URINE NEG (NEG); BLOOD, URINE NEG (NEG); GLUCOSE,URINE NEG (NEG); HYALINE CAST, URINE 6 /lpf (RARE); KETONE, URINE 10 mg/dL (NEG); MUCUS URINE MANY /lpf (OCC); NITRITE,URINE NEG (NEG); SQUAMOUS EPITHELIAL CELL URINE 4 /hpf (0-5); URINE COLOR YELLOW (YELLW/STRAW); URINE LEUKOCYTE ESTERASE NEG (NEG)
[2017-03-12] MEDS ORDERED: TYLE325T PO (15:43)
[2017-03-12] MEDS ORDERED: MULT-65 PO (15:43)
[2017-03-12] MEDS ORDERED: ACID100C PO (15:43)
[2017-03-12] MEDS ORDERED: MELA3TAB52 PO (15:43)
[2017-03-12] MEDS ORDERED: SENN1TAB27 PO (15:43)
[2017-03-12] MEDS ORDERED: MIRT1TAB PO (15:43)
[2017-03-12] MEDS ORDERED: AMINLIQ7 PO (15:43)
[2017-03-12] MEDS ORDERED: AUGM875T3 PO (15:43)
[2017-03-12] MEDS ORDERED: GUAI600T11 PO (15:43)
[2017-03-12] MEDS ORDERED: SODIUM CHLORID 0.9% 500 ML INJ 500 ML IV ONE (15:45)
--- NOTE | 2017-03-12 15:46 | PD ---
HPI Chief Complaint: Altered mental status Time Seen by Provider: 14:44 Travel History International Travel<30 days: No Contact w/Intl Traveler<30days: No Traveled to known affect area: No History of Present Illness HPI 81yo F with PMH of dementia [facility] for altered mental status. As per daughter Waqas Santizo, she went to visit her yesterday and said she talked to her for a little bit and then stopped talking to her. She was not like herself yesterday already. Said she is not really eating or drinking. Said she had positive flu recently. She was also getting augmentin for bronchitis. As per EVAC, she looked like she was having trouble breathing so she was given a duoneb there. Unable to obtain further history. Daughter said ever since she fell in 12/2016 and broke her hip, she has not been walking and has been declining. Said she went home but they could not take care of her so she is back in rehab. PFSH Past Medical History Alzheimer's Disease: Yes Arthritis: No Autoimmune Disease: No Heart Rhythm Problems: No Cardiovascular Problems: Yes (HYPOTENTION ) High Cholesterol: Yes Chest Pain: No Congestive Heart Failure: No Cerebrovascular Accident: No Dementia: Yes Diabetes: No Diminished Hearing: No Gastrointestinal Disorders: No GERD: No Glaucoma: No Genitourinary: Yes (CHRONIC KIDNEY DISEASE - STAGE 3 ) Headaches: No Hepatitis: No Hiatal Hernia: No Hypertension: No Kidney Stones: No Musculoskeletal: Yes (OSTEOPOROSIS ) Neurologic: No Myocardial Infarction: No Renal Failure: No Seizures: No Thyroid Disease: Yes (HYPOTHYROID ) Ulcer: No Tetanus Vaccination: Unknown Menopausal: Yes Past Surgical History Abdominal Surgery: No AICD: No Cardiac Surgery: No Ear Surgery: No Endocrine Surgery: No Eye Surgery: No Gynecologic Surgery: No Insulin Pump: No Oral Surgery: No Pacemaker: No Thoracic Surgery: No Other Surgery: No Social History Alcohol Use: No Tobacco Use: No Substance Use: No Allergies-Medications (Allergen,Severity, Reaction): Coded Allergies: No Known Allergies (Verified Allergy, Severe, 03/12/17) Reported Meds & Prescriptions Reported Meds & Active Scripts Active Percocet (Oxycodone-Acetaminophen) 5-325 mg Tab 1 Tab PO Q4H PRN Reported Mucus Relief ER (Guaifenesin) 600 Mg Tab 600 Mg PO Q12HR 5 Days Melatonin 3 Mg Tab 3 Mg PO HS Pro-Stat (Amino Acids-Protein Hydrolysat) 15 Gram-100 Kcal/30 Ml Liq 30 Ml PO TID Mirtazapine 7.5 Mg Tab 7.5 Mg PO DAILY Multi-Vitamin Daily (Multiple Vitamin) 1 Tab Tab 1 Tab PO DAILY Senna Lax (Sennosides) 8.6 Mg Tab 8.6 Mg PO BID Tylenol (Acetaminophen) 325 Mg Tab 650 Mg PO Q4H PRN Acidophilus Probiotic (Lactobacillus) 100 Mg (1 Billion Cell) Cap 100 Mg PO TID 14 Days Augmentin (Amoxicillin-Clavulanate) 875-125 Mg Tab 1 Tab PO Q12HR 7 Days Donepezil 10 Mg Tab 10 Mg PO BID Levothyroxine (Levothyroxine Sodium) 50 Mcg Tab 50 Mcg PO DAILY Atorvastatin (Atorvastatin Calcium) 40 Mg Tab 40 Mg PO HS Review of Systems Except as stated in HPI: all other systems reviewed are Neg Physical Exam Narrative GENERAL: 81yo F in mild distress. SKIN: Focused skin assessment warm/dry. HEAD: Atraumatic. Normocephalic. EYES: Pupils equal and round at 3mm bilaterally. ENT: No nasal bleeding or discharge. Dry mucous membranes. NECK: Trachea midline. No JVD. CARDIOVASCULAR: Regular rate and rhythm. No murmur appreciated. RESPIRATORY: No accessory muscle use. Clear to auscultation. Breath sounds equal bilaterally. GASTROINTESTINAL: Abdomen soft, non-tender, nondistended. MUSCULOSKELETAL: No obvious deformities. No clubbing. No cyanosis. No edema. NEUROLOGICAL: Opens her eyes to her name. Moves upper extremities spontaneous but not to command. Nonverbal. Data Data Last Documented VS Vital Signs Date Time Temp Pulse Resp B/P (MAP) Pulse Ox O2 Delivery O2 Flow Rate FiO2 03/12/17 15:09 93 Room Air 03/12/17 14:35 99.5 87 50 119/83 (95) Orders Orders Ammonia (03/12/17 14:45) Basic Metabolic Panel (Bmp) (03/12/17 14:45) Complete Blood Count With Diff (03/12/17 14:45) Prothrombin Time / Inr (Pt) (03/12/17 14:45) Act Partial Throm Time (Ptt) (03/12/17 14:45) Troponin I (03/12/17 14:45) Thyroid Stimulating Hormone (03/12/17 14:45) Urinalysis - C+S If Indicated (03/12/17 14:45) Chest, Single Ap (03/12/17 14:45) Ct Brain W/O Iv Contrast(Rout) (03/12/17 14:45) Resp Blood Gas Venous (03/12/17 ) Sodium Chlorid 0.9% 500 Ml Inj (Ns 500 M (03/12/17 15:45) Urine Culture (03/12/17 15:00) Influenzae A/B Antigen (03/12/17 15:46) Blood Gas Venous (Vbg) (03/12/17 15:50) Protein Corrected Calcium(Pcc) (03/12/17 16:00) Potassium Chlor 20 Meq Premix (Kcl 20 Me (03/12/17 16:45) Calcium Gluconate Inj (Calcium Gluconate (03/12/17 16:45) Electrocardiogram (03/12/17 ) Admit Order (Ed Use Only) (03/12/17 17:02) Labs Laboratory Tests Test 03/12/17 15:00 03/12/17 15:50 03/12/17 16:00 White Blood Count 7.2 TH/MM3 Red Blood Count 4.25 MIL/MM3 Hemoglobin 12.9 GM/DL Hematocrit 36.7 % Mean Corpuscular Volume 86.4 FL Mean Corpuscular Hemoglobin 30.5 PG Mean Corpuscular Hemoglobin Concent 35.3 % Red Cell Distribution Width 15.7 % Platelet Count 224 TH/MM3 Mean Platelet Volume 7.9 FL Neutrophils (%) (Auto) 45.8 % Lymphocytes (%) (Auto) 47.1 % Monocytes (%) (Auto) 6.7 % Eosinophils (%) (Auto) 0.1 % Basophils (%) (Auto) 0.3 % Neutrophils # (Auto) 3.3 TH/MM3 Lymphocytes # (Auto) 3.4 TH/MM3 Monocytes # (Auto) 0.5 TH/MM3 Eosinophils # (Auto) 0.0 TH/MM3 Basophils # (Auto) 0.0 TH/MM3 CBC Comment DIFF FINAL Differential Comment Prothrombin Time 11.6 SEC Prothromb Time International Ratio 1.1 RATIO Activated Partial Thromboplast Time 23.9 SEC Urine Color YELLOW Urine Turbidity HAZY Urine pH 6.0 Urine Specific [place] 1.027 Urine Protein 30 mg/dL Urine Glucose (UA) NEG mg/dL Urine Ketones 10 mg/dL Urine Occult Blood NEG Urine Nitrite NEG Urine Bilirubin NEG Urine Urobilinogen 2.0 MG/DL Urine Leukocyte Esterase NEG Urine RBC 6 /hpf Urine WBC 23 /hpf Urine Squamous Epithelial Cells 4 /hpf Urine Amorphous Sediment RARE Urine Hyaline Casts 6 /lpf Urine Mucus MANY /lpf Microscopic Urinalysis Comment CATH-CULTURE IND Ammonia 12 MCMOL/L Blood Gas Puncture Site SWAN DOUG LINE Blood Gas Patient Temperature 98.6 Venous Blood pH 7.48 Venous Blood Partial Pressure CO2 34 mmHg Venous Blood Partial Pressure O2 29 mmHg Venous Blood HCO3 25 mmol/L Venous Blood Oxygen Saturation 54 % Venous Blood Oxygen Content 9.0 Vol % Venous Blood Base Excess 1.4 mmol/L Oxygen Delivery Device ROOM AIR Blood Gas Inspired Oxygen 21 % Blood Urea Nitrogen 16 MG/DL Creatinine 0.66 MG/DL Random Glucose 84 MG/DL Total Protein 5.9 GM/DL Calcium Level 6.7 MG/DL Sodium Level 146 MEQ/L Potassium Level 2.9 MEQ/L Chloride Level 113 MEQ/L Carbon Dioxide Level 23.9 MEQ/L Anion Gap 9 MEQ/L Estimat Glomerular Filtration Rate 86 ML/MIN Protein Corrected Calcium 7.3 MG/DL Troponin I 0.03 NG/ML Thyroid Stimulating Hormone 3rd Gen 3.360 uIU/ML MDM Medical Decision Making Medical Screen Exam Complete: Yes Emergency Medical Condition: Yes Interpretation(s) EKG: NSR 88bpm. Normal axis. Poor baseline. Differential Diagnosis AMS secondary to electrolyte abnormality vs. dehydration vs. UTI vs. influenza vs. pneumonia Narrative Course 81yo F with dementia brought in here for altered mental status. Pt is not talking and not following commands. Labs reviewed, no leukocytosis. Ammonia normal. UA showed WBC of 23. Culture indicated. Pt given ceftriaxone and 500cc IVF. Discussed the code status with daughter Waqas Santizo who is next of kin and at bedside. She wants DNR and DNI but does not have paper work. Her number is [phone]. I discussed with Mrs. Waqas Santizo and signed the code status paper. Pt given NS IVF 500cc and is now more awake, opens eyes and has eye contact. Still not verbal or following command. Labs reviewed, no leukocytosis. H/H normal. Hypokalemia at 2.9, will replace with KCl IV. Mild hypernatremia at 146. Troponin negative. TSH normal. Hypocalcemia at 7.3, replaced with calcium gluconate 1gm IV. CXR negative. CT brain showed chronic small vessel ischemic changes without any evidence for acute hemorrhage or mass effect. Discussed with Dr. Brooks and admitted to his service. Diagnosis Primary Impression: Altered mental status Qualified Codes: R41.82 - Altered mental status, unspecified Admitting Information Admitting Physician Requests: Admit Elma Workman DO Mar 12, 2017 15:46
[2017-03-12 16:02] LABS: INTERNATIONAL NORMALIZED RATIO 1.1 RATIO; PROTHROMBIN TIME - PATIENT 11.6 SEC (9.8-11.6)
[2017-03-12 16:35] LABS: BICARBONATE 23.9 MEQ/L (21.0-32.0); CALCIUM 6.7 MG/DL (8.5-10.1); CREATININE 0.66 MG/DL (0.50-1.00)
[2017-03-12 16:40] LABS: TROPONIN I 0.03 NG/ML (0.02-0.05)
[2017-03-12] MEDS ORDERED: CALCIUM GLUCONATE INJ 1 GM in SODIUM CHLORIDE 0.9% INJ 100 ML IV ONE (16:45)
[2017-03-12 16:55] LABS: TOTAL PROTEIN 5.9 GM/DL (6.4-8.2)
[2017-03-12 16:57] LABS: CALCIUM-PROTEIN CORRECTED 7.3 MG/DL (8.5-10.1)
[2017-03-12] MEDS ORDERED: SODIUM CHLORIDE 23.4% INJ 51.3 MEQ in WATER STERILE FOR INJ 1,000 ML IV SCH (17:00)
[2017-03-12 17:06] VITALS: BP 133/61; PULSE 85; RESP 50; O2SAT 95
[2017-03-12] MEDS: POTASSIUM CHLOR 20 MEQ PREMIX 100 ML IV SCH ×2 (17:07→19:02)
--- NOTE | 2017-03-12 17:09 | HHI.HP ---
HPI Service [facility] Primary Care Physician Destin Beaver MD Admission Diagnosis Altered mental status, hypokalemia, hypocalcemia, UTI Diagnoses: (1) Hypokalemia (2) Hypocalcemia (3) Encephalopathy (4) Altered mental status (5) Compensated respiratory alkalosis Chief Complaint: altered mental status change Travel History International Travel<30 Days: No Contact w/Intl Traveler <30 Da: No Traveled to Known Affected Are: No History of Present Illness 81-year-old female with a history of dementia, hyperlipidemia was brought from a local long term facility for evaluation of acute onset of altered mental status change as well as respiratory distressed/failure which was noted by EMS for which patient was treated with DuoNeb. The history is mostly obtained from patient's daughter at the bedside who stated her mom was a usual self until yesterday as she visited her. During that visit, patient was able to talk for later beat however stopped talking afterward. Today patient's according to her daughter was not herself she became more altered. She has been recently treated for bronchitis with Augmentin and was diagnosed with flu however in the emergency department flu B and A antigen were all negative. During my exam, patient was alert however not answering to any questions or talking to me either. She has a cough production. Vitals remained stable. She had multiple electrolyte abnormalities including hypokalemia, hypocalcemia and mildly elevated sodium. Chest x-ray was unremarkable and head CT stable. Review of Systems Except as stated in HPI: all other systems reviewed are Neg Past Family Social History Past Medical History Cardiovascular Problems: Yes (HYPOTENTION ) High Cholesterol: Yes Dementia: Yes Genitourinary: Yes (CHRONIC KIDNEY DISEASE - STAGE 3 ) Medical other: Yes (VITAMIN D DEFICIENCY ) Musculoskeletal: Yes (OSTEOPOROSIS ) Thyroid Disease: Yes (HYPOTHYROID ) Past Surgical History Open reduction internal fixation right ankle 2003December 2016 1-Open reduction internal fixation with suture of the greater trochanter 2- right hip intramedullary rafaela fixation Reported Medications Mucus Relief ER (Guaifenesin) 600 Mg Tab 600 Mg PO Q12HR 5 Days Melatonin 3 Mg Tab 3 Mg PO HS Pro-Stat (Amino Acids-Protein Hydrolysat) 15 Gram-100 Kcal/30 Ml Liq 30 Ml PO TID Mirtazapine 7.5 Mg Tab 7.5 Mg PO DAILY Multi-Vitamin Daily (Multiple Vitamin) 1 Tab Tab 1 Tab PO DAILY Senna Lax (Sennosides) 8.6 Mg Tab 8.6 Mg PO BID Tylenol (Acetaminophen) 325 Mg Tab 650 Mg PO Q4H PRN Acidophilus Probiotic (Lactobacillus) 100 Mg (1 Billion Cell) Cap 100 Mg PO TID 14 Days Augmentin (Amoxicillin-Clavulanate) 875-125 Mg Tab 1 Tab PO Q12HR 7 Days Donepezil 10 Mg Tab 10 Mg PO BID Levothyroxine (Levothyroxine Sodium) 50 Mcg Tab 50 Mcg PO DAILY Atorvastatin (Atorvastatin Calcium) 40 Mg Tab 40 Mg PO HS Allergies: Coded Allergies: No Known Allergies (Verified Allergy, Severe, 03/12/17) Family History Due to patient advanced age family history not relevant Social History Alcohol Use: No Tobacco Use: No Substance Use: No Physical Exam Vital Signs Vital Signs Date Time Temp Pulse Resp B/P (MAP) Pulse Ox O2 Delivery O2 Flow Rate FiO2 03/12/17 17:06 85 50 133/61 (85) 95 Room Air 03/12/17 15:09 93 Room Air 03/12/17 14:35 99.5 87 50 119/83 (95) 93 Physical Exam GENERAL: This is a well-nourished, well-developed patient, in no apparent distress. SKIN: No rashes, ecchymoses or lesions. Cool and dry. HEAD: Atraumatic. Normocephalic. No temporal or scalp tenderness. EYES: Pupils equal round and reactive. Extraocular motions intact. No scleral icterus. No injection or drainage. ENT: Nose without bleeding, purulent drainage or septal hematoma. Throat without erythema, tonsillar hypertrophy or exudate. Uvula midline. Airway patent. NECK: Trachea midline. No JVD or lymphadenopathy. Supple, nontender, no meningeal signs. CARDIOVASCULAR: Regular rate and rhythm without murmurs, gallops, or rubs. RESPIRATORY: Clear to auscultation. Breath sounds equal bilaterally. No wheezes , rales, or rhonchi. GASTROINTESTINAL: Abdomen soft, non-tender, nondistended. No hepato-splenomegaly , or palpable masses. No guarding. MUSCULOSKELETAL: Extremities without clubbing, cyanosis, or edema. No joint tenderness, effusion, or edema noted. No calf tenderness. Negative Homans sign bilaterally. NEUROLOGICAL: Awake and alert. Cranial nerves II through XII intact. Motor and sensory grossly within normal limits. Five out of 5 muscle strength in all muscle groups. Normal speech. Laboratory Laboratory Tests Test 03/12/17 15:00 03/12/17 15:50 03/12/17 16:00 White Blood Count 7.2 Red Blood Count 4.25 Hemoglobin 12.9 Hematocrit 36.7 Mean Corpuscular Volume 86.4 Mean Corpuscular Hemoglobin 30.5 Mean Corpuscular Hemoglobin Concent 35.3 Red Cell Distribution Width 15.7 Platelet Count 224 Mean Platelet Volume 7.9 Neutrophils (%) (Auto) 45.8 Lymphocytes (%) (Auto) 47.1 Monocytes (%) (Auto) 6.7 Eosinophils (%) (Auto) 0.1 Basophils (%) (Auto) 0.3 Neutrophils # (Auto) 3.3 Lymphocytes # (Auto) 3.4 Monocytes # (Auto) 0.5 Eosinophils # (Auto) 0.0 Basophils # (Auto) 0.0 CBC Comment DIFF FINAL Differential Comment Prothrombin Time 11.6 Prothromb Time International Ratio 1.1 Activated Partial Thromboplast Time 23.9 Urine Color YELLOW Urine Turbidity HAZY Urine pH 6.0 Urine Specific Klemme 1.027 Urine Protein 30 Urine Glucose (UA) NEG Urine Ketones 10 Urine Occult Blood NEG Urine Nitrite NEG Urine Bilirubin NEG Urine Urobilinogen 2.0 Urine Leukocyte Esterase NEG Urine RBC 6 Urine WBC 23 Urine Squamous Epithelial Cells 4 Urine Amorphous Sediment RARE Urine Hyaline Casts 6 Urine Mucus MANY Microscopic Urinalysis Comment CATH-CULTURE IND Ammonia 12 Blood Gas Puncture Site SWAN DOUG LINE Blood Gas Patient Temperature 98.6 Venous Blood pH 7.48 Venous Blood Partial Pressure CO2 34 Venous Blood Partial Pressure O2 29 Venous Blood HCO3 25 Venous Blood Oxygen Saturation 54 Venous Blood Oxygen Content 9.0 Venous Blood Base Excess 1.4 Oxygen Delivery Device ROOM AIR Blood Gas Inspired Oxygen 21 Blood Urea Nitrogen 16 Creatinine 0.66 Random Glucose 84 Total Protein 5.9 Calcium Level 6.7 Sodium Level 146 Potassium Level 2.9 Chloride Level 113 Carbon Dioxide Level 23.9 Anion Gap 9 Estimat Glomerular Filtration Rate 86 Protein Corrected Calcium 7.3 Troponin I 0.03 Thyroid Stimulating Hormone 3rd Gen 3.360 Date/Time Source Procedure Growth Status 2/3/18 16:00 Nasal Aspirate Influenza Types A,B Antigen (PANKAJ) - Final NEGATIVE FOR FLU A AND B ANTIGEN.... Complete 03/12/17 15:00 Urine Catheterized Urine Urine Culture Pending Worksheet Result Diagram: 03/12/17 1500 03/12/17 1600 Imaging Last Impressions Head CT 03/12/17 1445 Signed Impressions: Service Date/Time: Sunday, March 12, 2017 15:07 - CONCLUSION: Chronic and small vessel ischemic changes without any evidence for acute hemorrhage or mass effect. Marito Aceves MD Chest X-Ray 03/12/17 1445 Signed Impressions: Service Date/Time: Sunday, March 12, 2017 15:15 - CONCLUSION: No acute cardiopulmonary disease. Marito Aceves MD Septic Shock Reassessment Septic shock perfusion: reassessment completed Caprini VTE Risk Assessment Caprini VTE Risk Assessment: Mod/High Risk (score >= 2) Caprini Risk Assessment Model Point Value = 1 Point Value = 2 Point Value = 3 Point Value = 5 Age 41-60 Minor surgery BMI > 25 kg/m2 Swollen legs Varicose veins or History of unexplained or recurrent spontaneous Oral contraceptives or hormone replacement Sepsis (< 1 month) Serious lung disease, including pneumonia (< 1 month) Abnormal pulmonary function Acute myocardial infarction Congestive heart failure (< 1 month) History of inflammatory bowel disease Medical patient at bed rest Age 61-74 Arthroscopic surgery Major open surgery (> 45 min) Laparoscopic surgery (> 45 min) Malignancy Confined to bed (> 72 hours) Immobilizing plaster cast Central venous access Age >= 75 History of VTE Family history of VTE Factor V Leiden Prothrombin [id number] Lupus anticoagulant Anticardiolipin antibodies Elevated serum homocysteine Heparin-induced thrombocytopenia Other congenital or acquired thrombophilia Stroke (< 1 month) Elective arthroplasty Hip, pelvis, or leg fracture Acute spinal cord injury (< 1 month) Prophylaxis Regimen Total Risk Factor Score Risk Level Prophylaxis Regimen 0-1 Low Early ambulation 2 Moderate Order ONE of the following: *Sequential Compression Device (SCD) *Heparin 5000 units SQ BID 3-4 Higher Order ONE of the following medications: *Heparin 5000 units SQ TID *Enoxaparin/Lovenox 40 mg SQ daily (WT < 150 kg, CrCl > 30 mL/min) *Enoxaparin/Lovenox 30 mg SQ daily (WT < 150 kg, CrCl > 10-29 mL/min) *Enoxaparin/Lovenox 30 mg SQ BID (WT < 150 kg, CrCl > 30 mL/min) AND/OR *Sequential Compression Device (SCD) 5 or more Highest Order ONE of the following medications: *Heparin 5000 units SQ TID (Preferred with Epidurals) *Enoxaparin/Lovenox 40 mg SQ daily (WT < 150 kg, CrCl > 30 mL/min) *Enoxaparin/Lovenox 30 mg SQ daily (WT < 150 kg, CrCl > 10-29 mL/min) *Enoxaparin/Lovenox 30 mg SQ BID (WT < 150 kg, CrCl > 30 mL/min) AND *Sequential Compression Device (SCD) Assessment and Plan Problem List: (1) Encephalopathy ICD Code: G93.40 - Encephalopathy, unspecified (2) Altered mental status ICD Code: R41.82 - Altered mental status, unspecified Status: Acute (3) Hypocalcemia ICD Code: E83.51 - Hypocalcemia (4) Hypokalemia ICD Code: E87.6 - Hypokalemia (5) Compensated respiratory alkalosis ICD Code: E87.3 - Alkalosis (6) Dementia ICD Code: F03.90 - Unspecified dementia without behavioral disturbance (7) Bronchitis ICD Code: J40 - Bronchitis, not specified as acute or chronic Assessment and Plan 81 Year-old female with After mental status change Metabolic Encephalopathy Dementia Head CT noted and review by me and stable Chest x-ray noted and review by me without any cardio pulmonary disease Patient with multiple electrolyte abnormalities which would be corrected accordingly Ammonia level within normal limits Resume Namenda Compensated Respiratory alkalosis DuoNeb scheduled and when necessary Maintain oxygen saturation above 92% Bronchitis Flu antigens A and B negatives Start Levaquin IV daily Hypocalcemia Give 1 g calcium gluconate 1 IV Hypokalemia Give potassium IV and monitor electrolyte Other chronic medical conditions including hyperlipidemia, hypothyroidism Resume outpatient medications DVT prophylaxis: Bilateral SCDs Code Status DO NOT RESUSCITATE Discussed Condition With ED physician, patient's daughter, Brenna ARCE Physician Certification 2 Midnight Certification Type: Admission for Inpatient Services Order for Inpatient Services The services are ordered in accordance with Medicare regulations or non- Medicare payer requirements, as applicable. In the case of services not specified as inpatient-only, they are appropriately provided as inpatient services in accordance with the 2-midnight benchmark. Estimated LOS (days): 2 days is the estimated time the patient will need to remain in the hospital, assuming treatment plan goals are met and no additional complications. Post-Hospital Plan: Not yet determined Problem Qualifiers (1) Altered mental status: Qualified Codes: R41.82 - Altered mental status, unspecified Kostas Brooks MD Mar 12, 2017 17:09
[2017-03-12] MEDS ORDERED: ACETAMINOPHEN 325 MG TAB PO PRN ×2 (17:15)
[2017-03-12] MEDS ORDERED: ONDANSETRON HCL 4 MG/2 ML VIAL IVP PRN (17:15)
[2017-03-12] MEDS ORDERED: NALOXONE HCL 0.4 MG/ML AMP IV PUSH PRN (17:15)
[2017-03-12] MEDS ORDERED: MAGNESIUM HYDROXIDE SUSP 30 ML CUP PO PRN (17:15)
[2017-03-12] MEDS ORDERED: SODIUM CHLORIDE 0.9% FLUSH 10 ML FLUSH IV FLUSH PRN (17:15)
[2017-03-12] MEDS ORDERED: RESP: ALBUTEROL 2.5 MG/IPRATROPIUM 0.5 MG NEB (PRN) NEB (17:15)
[2017-03-12] MEDS ORDERED: POTASSIUM CHLORIDE 10 MEQ CONTROLLED RELEASE TAB PO ONE (17:30)
[2017-03-12] MEDS ORDERED: PILL SPLITTER OTHER PRN (18:15)
[2017-03-12 18:50] VITALS: BP 116/56; PULSE 83; RESP 18; TEMP 99.1; O2SAT 91
[2017-03-12] MEDS: RESP: ALBUTEROL 2.5 MG/IPRATROPIUM 0.5 MG NEB (SCH) NEB (20:00)
[2017-03-12 20:23] VITALS: BP 112/59; PULSE 83; RESP 19; TEMP 97.9; O2SAT 91
[2017-03-12] MEDS: DONEPEZIL HCL 5 MG TAB PO SCH (21:00)
[2017-03-12] MEDS: ATORVASTATIN 40 MG TAB PO SCH (21:00)
[2017-03-12] MEDS: guaiFENesin E.R. 600 MG TAB PO SCH (21:00)
[2017-03-12] MEDS: SODIUM CHLORIDE 0.9% FLUSH 10 ML FLUSH IV FLUSH SCH (22:48)
[2017-03-13] MEDS: SODIUM CHLOR IV SCH ×2 (00:17→14:31)
[2017-03-13] MEDS: WATER STERILE FOR IV SCH ×2 (00:17→14:31)
[2017-03-13 00:23] VITALS: BP 108/53; PULSE 74; RESP 24; TEMP 98.1; O2SAT 92
[2017-03-13] MEDS: POTASSIUM CHLOR 20 MEQ PREMIX 100 ML IV SCH ×2 (00:25→01:25)
[2017-03-13 04:57] VITALS: BP 105/49; PULSE 74; RESP 30; TEMP 97.6; O2SAT 95
[2017-03-13] MEDS: LEVOTHYROXINE SODIUM 50 MCG TAB PO SCH (05:09)
[2017-03-13 06:08] LABS: BASOPHIL % 0.2 % (0.0-2.0); EOSINOPHIL % 0.5 % (0.0-4.0); HEMATOCRIT 31.8 % (35.0-46.0); HEMOGLOBIN 10.7 GM/DL (11.6-15.3); LYMPH % 24.4 % (9.0-44.0); LYMPHOCYTE # 1.8 TH/MM3 (1.0-4.8); MEAN CELL VOLUME 85.8 FL (80.0-100.0); MEAN CORPUSCULAR HEMOGLOBIN 28.9 PG (27.0-34.0); MEAN CORPUSCULAR HGB CONC 33.7 % (32.0-36.0); MEAN PLATELET VOLUME 7.4 FL (7.0-11.0); MONO % 6.6 % (0.0-8.0); MONOCYTE # 0.5 TH/MM3 (0-0.9); NEUT % 68.3 % (16.0-70.0); PLATELET COUNT 215 TH/MM3 (150-450); RED BLOOD COUNT 3.71 MIL/MM3 (4.00-5.30); RED CELL DISTRIBUTION WIDTH 15.3 % (11.6-17.2); WHITE BLOOD COUNT 7.3 TH/MM3 (4.0-11.0)
[2017-03-13 06:33] LABS: ALBUMIN 1.8 GM/DL (3.4-5.0); BICARBONATE 24.4 MEQ/L (21.0-32.0); CALCIUM 7.4 MG/DL (8.5-10.1); CREATININE 0.59 MG/DL (0.50-1.00)
[2017-03-13 06:35] LABS: CALCIUM-PROTEIN CORRECTED 8.5 MG/DL (8.5-10.1); TOTAL BILIRUBIN ADULT 0.4 MG/DL (0.2-1.0); TOTAL PROTEIN 5.2 GM/DL (6.4-8.2)
[2017-03-13] MEDS: RESP: ALBUTEROL 2.5 MG/IPRATROPIUM 0.5 MG NEB (SCH) NEB ×3 (07:29→18:57)
[2017-03-13 08:24] VITALS: BP 106/56; PULSE 73; RESP 20; TEMP 98.6; O2SAT 91
[2017-03-13] MEDS: DONEPEZIL HCL 5 MG TAB PO SCH ×2 (08:33→20:49)
[2017-03-13] MEDS: MIRTAZAPINE 15 MG TAB PO SCH (08:33)
[2017-03-13] MEDS: guaiFENesin E.R. 600 MG TAB PO SCH ×2 (08:33→20:50)
[2017-03-13] MEDS: SODIUM CHLORIDE 0.9% FLUSH 10 ML FLUSH IV FLUSH SCH ×2 (08:35→21:00)
[2017-03-13] MEDS: LEVOFLOXACIN 500 MG PREMIX INJ 100 ML IV SCH (08:35)
--- NOTE | 2017-03-13 10:19 | HHI.PR ---
Subjective Remarks Follow-up metabolic encephalopathy/electrolyte abnormalities 03/13/17-patient seen and examined, she appears more alert however not engage in any conversation with M.D. Vitals stable. Objective Vitals Vital Signs Date Time Temp Pulse Resp B/P (MAP) Pulse Ox O2 Delivery O2 Flow Rate FiO2 03/13/17 08:24 98.6 73 20 106/56 (73) 91 03/13/17 04:57 97.6 74 30 105/49 (67) 95 03/13/17 00:23 98.1 74 24 108/53 (71) 92 03/12/17 20:23 97.9 83 19 112/59 (76) 91 03/12/17 18:50 99.1 83 18 116/56 (76) 91 03/12/17 17:48 03/12/17 17:06 85 50 133/61 (85) 95 Room Air 03/12/17 15:09 93 Room Air 03/12/17 14:35 99.5 87 50 119/83 (95) 93 I/O 03/12/17 03/12/17 03/12/17 03/13/17 03/13/17 03/13/17 07:00 15:00 23:00 07:00 15:00 23:00 Intake Total 710 ml 200 ml Balance 710 ml 200 ml Intake IV Total 710 ml 200 ml # Voids 1 2 Result Diagram: 03/13/17 0547 03/13/17 0547 Imaging Last Impressions Head CT 03/12/17 1445 Signed Impressions: Service Date/Time: Sunday, March 12, 2017 15:07 - CONCLUSION: Chronic and small vessel ischemic changes without any evidence for acute hemorrhage or mass effect. Marito Aceves MD Chest X-Ray 03/12/17 1445 Signed Impressions: Service Date/Time: Sunday, March 12, 2017 15:15 - CONCLUSION: No acute cardiopulmonary disease. Marito Aceves MD Objective Remarks GENERAL: NAD SKIN: Warm and dry. HEAD: Normocephalic. EYES: No scleral icterus. No injection or drainage. NECK: Supple, trachea midline. No JVD or lymphadenopathy. CARDIOVASCULAR: Regular rate and rhythm without murmurs, gallops, or rubs. RESPIRATORY: Breath sounds equal bilaterally. No accessory muscle use. GASTROINTESTINAL: Abdomen soft, non-tender, nondistended. MUSCULOSKELETAL: No cyanosis, or edema. BACK: Nontender without obvious deformity. No CVA tenderness. A/P Problem List: (1) Encephalopathy ICD Code: G93.40 - Encephalopathy, unspecified Status: Resolved (2) Altered mental status ICD Code: R41.82 - Altered mental status, unspecified Status: Resolved (3) Hypocalcemia ICD Code: E83.51 - Hypocalcemia Status: Resolved (4) Hypokalemia ICD Code: E87.6 - Hypokalemia Status: Resolved (5) Compensated respiratory alkalosis ICD Code: E87.3 - Alkalosis (6) Dementia ICD Code: F03.90 - Unspecified dementia without behavioral disturbance Status: Chronic (7) Bronchitis ICD Code: J40 - Bronchitis, not specified as acute or chronic Assessment and Plan 81 Year-old female with Altered mental status change-improved Metabolic Encephalopathy-resolved Dementia Ammonia level within normal limits Continue Namenda Compensated Respiratory alkalosis DuoNeb scheduled and when necessary Maintain oxygen saturation above 92% Bronchitis Flu antigens A and B negatives Continue Levaquin IV daily Hypocalcemia Resolved s/p 1 g calcium gluconate 1 IV Hypokalemia Resolved s/p potassium IV and monitor electrolyte Other chronic medical conditions including hyperlipidemia, hypothyroidism Continue outpatient medications DVT prophylaxis: Bilateral SCDs Problem Qualifiers (1) Altered mental status: Qualified Codes: R41.82 - Altered mental status, unspecified (2) Dementia: Kostas Brooks MD Mar 13, 2017 10:19
[2017-03-13 12:47] VITALS: BP 97/46; PULSE 94; RESP 20; TEMP 98.6; O2SAT 94
--- NOTE | 2017-03-13 12:50 | EKG ---
Date Performed: 03/12/2017 Time Performed: 14:39:02 PTAGE: 81 years EKG: Baseline artifact Nonspecific T-wave change Otherwise within normal limits Since previous t racing, no major change noted BORDERLINE ECG PREVIOUS TRACING : 12/15/2016 14.28 DOCTOR: Conrad Cagle Interpretating Date/Time 03/13/2017 12:48:54
[2017-03-13 16:51] VITALS: BP 96/51; PULSE 77; RESP 20; TEMP 98; O2SAT 94
[2017-03-13 20:32] VITALS: BP 118/51; PULSE 90; RESP 22; TEMP 98.3; O2SAT 93
[2017-03-13] MEDS: ATORVASTATIN 40 MG TAB PO SCH (20:50)
[2017-03-14 00:52] VITALS: BP 109/55; PULSE 85; RESP 20; TEMP 97.5; O2SAT 94
[2017-03-14] MEDS: LEVOTHYROXINE SODIUM 50 MCG TAB PO SCH (04:37)
[2017-03-14] MEDS: WATER STERILE FOR IV SCH (04:37)
[2017-03-14] MEDS: SODIUM CHLOR IV SCH (04:37)
[2017-03-14 04:52] VITALS: BP 106/47; PULSE 80; RESP 18; TEMP 98; O2SAT 93
[2017-03-14 06:44] LABS: AUTOMATED NEUTROPHIL # 4.9 TH/MM3 (1.8-7.7); BASOPHIL % 0.4 % (0.0-2.0); EOSINOPHIL # 0.1 TH/MM3 (0-0.4); EOSINOPHIL % 1.8 % (0.0-4.0); HEMATOCRIT 33.9 % (35.0-46.0); HEMOGLOBIN 11.3 GM/DL (11.6-15.3); LYMPH % 24.6 % (9.0-44.0); LYMPHOCYTE # 1.8 TH/MM3 (1.0-4.8); MEAN CORPUSCULAR HEMOGLOBIN 28.6 PG (27.0-34.0); MEAN CORPUSCULAR HGB CONC 33.3 % (32.0-36.0); MEAN PLATELET VOLUME 7.8 FL (7.0-11.0); MONO % 7.8 % (0.0-8.0); MONOCYTE # 0.6 TH/MM3 (0-0.9); NEUT % 65.4 % (16.0-70.0); PLATELET COUNT 223 TH/MM3 (150-450); RED BLOOD COUNT 3.94 MIL/MM3 (4.00-5.30); RED CELL DISTRIBUTION WIDTH 15.5 % (11.6-17.2); WHITE BLOOD COUNT 7.4 TH/MM3 (4.0-11.0)
[2017-03-14 07:06] LABS: BICARBONATE 24.8 MEQ/L (21.0-32.0); CALCIUM 7.4 MG/DL (8.5-10.1); CREATININE 0.6 MG/DL (0.50-1.00)
[2017-03-14 07:33] LABS: CALCIUM-PROTEIN CORRECTED 8.1 MG/DL (8.5-10.1); TOTAL PROTEIN 5.8 GM/DL (6.4-8.2)
[2017-03-14] MEDS: RESP: ALBUTEROL 2.5 MG/IPRATROPIUM 0.5 MG NEB (SCH) NEB ×3 (07:59→19:24)
[2017-03-14 08:00] VITALS: BP 142/60; PULSE 81; RESP 18; TEMP 98.5; O2SAT 94
[2017-03-14] MEDS: LEVOFLOXACIN 500 MG PREMIX INJ 100 ML IV SCH (09:40)
[2017-03-14] MEDS: SODIUM CHLORIDE 0.9% FLUSH 10 ML FLUSH IV FLUSH SCH ×2 (09:40→23:29)
[2017-03-14] MEDS: guaiFENesin E.R. 600 MG TAB PO SCH ×2 (09:41→21:00)
[2017-03-14] MEDS: MIRTAZAPINE 15 MG TAB PO SCH (09:42)
[2017-03-14] MEDS: DONEPEZIL HCL 5 MG TAB PO SCH ×2 (09:42→21:00)
[2017-03-14] MEDS: D5-1/2 NS + KCL 20 MEQ INJ 1,000 ML IV SCH (09:47)
--- NOTE | 2017-03-14 10:54 | HHI.PR ---
Subjective Remarks Follow-up metabolic encephalopathy/electrolyte abnormalities 03/13/17-patient seen and examined, she appears more alert however not engage in any conversation with MLowellD. Vitals stable. 03/14/17-patient seen and examined, patient is alert however seems to be in a delirious state. Currently NPO Objective Vitals Vital Signs Date Time Temp Pulse Resp B/P (MAP) Pulse Ox O2 Delivery O2 Flow Rate FiO2 03/14/17 08:00 98.5 81 18 142/60 (87) 94 03/14/17 04:52 98.0 80 18 106/47 (66) 93 03/14/17 00:52 97.5 85 20 109/55 (73) 94 03/13/17 20:32 98.3 90 22 118/51 (73) 93 03/13/17 16:51 98.0 77 20 96/51 (66) 94 03/13/17 12:47 98.6 94 20 97/46 (63) 94 I/O 03/13/17 03/13/17 03/13/17 03/14/17 03/14/17 03/14/17 07:00 15:00 23:00 07:00 15:00 23:00 Intake Total 200 ml 2897 ml 400 ml Balance 200 ml 2897 ml 400 ml Intake IV Total 200 ml 2897 ml 400 ml # Voids 2 5 5 Result Diagram: 03/14/17 0610 03/14/17 0610 Objective Remarks GENERAL: NAD SKIN: Warm and dry. HEAD: Normocephalic. EYES: No scleral icterus. No injection or drainage. NECK: Supple, trachea midline. No JVD or lymphadenopathy. CARDIOVASCULAR: Regular rate and rhythm without murmurs, gallops, or rubs. RESPIRATORY: Breath sounds equal bilaterally. No accessory muscle use. GASTROINTESTINAL: Abdomen soft, non-tender, nondistended. MUSCULOSKELETAL: No cyanosis, or edema. BACK: Nontender without obvious deformity. No CVA tenderness. A/P Problem List: (1) Encephalopathy ICD Code: G93.40 - Encephalopathy, unspecified Status: Resolved (2) Altered mental status ICD Code: R41.82 - Altered mental status, unspecified Status: Resolved (3) Hypocalcemia ICD Code: E83.51 - Hypocalcemia Status: Resolved (4) Hypokalemia ICD Code: E87.6 - Hypokalemia Status: Resolved (5) Compensated respiratory alkalosis ICD Code: E87.3 - Alkalosis (6) Dementia ICD Code: F03.90 - Unspecified dementia without behavioral disturbance Status: Chronic (7) Bronchitis ICD Code: J40 - Bronchitis, not specified as acute or chronic Assessment and Plan 81 Year-old female with Altered mental status change-improved Metabolic Encephalopathy-resolved Dementia Ammonia level within normal limits Continue Namenda Will consult Psychiatry 2/2 bizarre behavior Keep NPO and consult speech therapy, start D5w 1/2 NS with KCL Compensated Respiratory alkalosis DuoNeb scheduled and when necessary Maintain oxygen saturation above 92% Bronchitis Flu antigens A and B negatives Continue Levaquin IV daily Hypocalcemia Resolved s/p 1 g calcium gluconate 1 IV Hypokalemia Resolved s/p potassium IV and monitor electrolyte Other chronic medical conditions including hyperlipidemia, hypothyroidism Continue outpatient medications DVT prophylaxis: Bilateral SCDs Problem Qualifiers (1) Altered mental status: Qualified Codes: R41.82 - Altered mental status, unspecified (2) Dementia: Kostas Brooks MD Mar 14, 2017 10:53
[2017-03-14 12:00] VITALS: BP 99/52; PULSE 85; RESP 16; TEMP 98.2; O2SAT 92
--- NOTE | 2017-03-14 12:14 | PD.WCN.NOT ---
Wound Consult Description: Received consult from Doctor Brooks regarding L heel and buttocks wound management Communicated with: CLAUDE Auguste and Doctor Brooks Recommendation: 1.Please cleans open wound to L posterior heel with normal saline only and pat dry. Apply Santyl ointment to wound bed and cover with dry 4x4 gauze pads, rolled gauze and tape. Change dressing daily. 2. Apply Skin prep to L lateral heel deep tissue injury BID and leave open to air. 3. Apply Skin prep to bilateral buttock deep tissue injuries BID and leave open to air. 4. Cleanse bilateral buttock, gluteal cleft, and perineal area with moisture barrier cloths and apply Calazime barrier cream BID to denuded skin and moisture related breakdown and leave open to air. 5.Please apply heel raiser boots when obtained 6. Please obtain halifax airapy bed, or if not available please order K4 bed from [facility] Additional Information: Patient seen on for evaluation of wound management of L heel and buttocks. Assessed L heel ,removed dressing in place to reveal unstageable pressure injury to L posterior heel. Wound measures 1cm x 2cm x slough. Wound bed presents with 90% coverage of yellow loosely adherent slough, 10% pink tissue.Wound drainage is minimal and serous without odor. Cleansed wound with normal saline and patted dry. Applied oil emulsion gauze over wound bed and covered with dry 4x4 gauze pads, secured dressing with rolled gauze and tape. Also noted deep tissue injury to L lateral heel measuring 0.6cm x 0.6cm. Skin prep was applied and DTI was left open to air Patient was then positioned to R side with the maximum assist of movie writer to reveal deep tissue injury to L and R buttock, each deep tissue injury measures ~ 1cm x ~0.5cm L area deep tissue injuries open to air and applied skin prep. Below deep tissue injuries noted areas or moisture related breakdown with partial thickness skin loss and denuded skin to bilateral buttocks, gluteal cleft and perineal area. Applied Calazime barrier cream to denuded skin with small area of partial thickness skin loss and to bilateral buttocks (not over deep tissue injuries), gluteal cleft and perineal area. Left all areas open to air. Mindy Rodríguez [facility] Mar 14, 2017 12:14
[2017-03-14] MEDS: COLLAGENASE OINT 30 GM TUBE TOPICAL SCH (15:02)
--- NOTE | 2017-03-14 15:11 | PD.PSY.CON ---
Provisional Diagnosis Admission Date Mar 12, 2017 at 17:03 [place] I. Delirium due to underlying medical conditions, Alzheimer's dementia [place] II. Deferred [place] III. Hypothyroidism, altered mental status History of Present Illness Service Psychiatry Consult Requested By Medical team Reason for Consult Agitation Primary Care Physician Destin Beaver MD HPI The patient is a 81-year-old woman, domiciled in a [place], she is mother of 2 kids, retired, , with psychiatric history of dementia, no previous psychiatric hospitalizations, no previous suicidal attempts, the patient is on Aricept 10 mg twice a day, medical history of hypothyroidism and hyperlipidemia was brought from a local [facility] facility for evaluation of acute onset of altered mental status change as well as respiratory distressed/failure which was noted by EMS for which patient was treated with DuoNeb. The history is mostly obtained from patient's daughter at the bedside who stated her mom was a usual self until yesterday as she visited her. During that visit, patient was able to talk for later beat however stopped talking afterward. Today patient's according to her daughter was not herself she became more altered. She has been recently treated for bronchitis with Augmentin and was diagnosed with flu however in the emergency department flu B and A antigen were all negative. During my exam, patient was alert however not answering to any questions or talking to me either. She has a cough production. Vitals remained stable. She had multiple electrolyte abnormalities including hypokalemia, hypocalcemia and mildly elevated sodium. Chest x-ray was unremarkable and head CT stable. Consulted to psychiatry due to agitation and psychosis. On psychiatric evaluation the patient is noncooperative, completely disoriented, Stuporous and perplexed. Patient doesn't follow commands, she is completely disoriented, nonverbal. Her daughter, Waqas Santizo [phone], provide some collateral information. She says that the patient has been suffering of dementia for 12 years. However, since the patient had a hip fracture and replacement last December she has been progressively becoming more demented, with less periods of lucidity and decompensated very quickly. Review of Systems ROS Limitations: Unresponsive, Uncooperative Past Family Social History Coded Allergies: No Known Allergies (Verified Allergy, Severe, 03/12/17) Active Scripts Oxycodone-Acetaminophen (Percocet) 5-325 mg Tab, 1 TAB PO Q4H Y for PAIN, #60 TAB 0 Refills Prov:Peter Martin Jr., MD 12/16/16 Reported Medications Guaifenesin ER (Mucus Relief ER) 600 Mg Tab, 600 MG PO Q12HR for CONGESTION for 5 Days, TAB 0 Refills 03/12/17 Melatonin (Melatonin) 3 Mg Tab, 3 MG PO HS for Insomnia 03/12/17 Amino Acids-Protein Hydrolysat (Pro-Stat) 15 Gram-100 Kcal/30 Ml Liq, 30 ML PO TID for Nutritional Supplement 03/12/17 Mirtazapine (Mirtazapine) 7.5 Mg Tab, 7.5 MG PO DAILY for APPETITE STIMULANT, # 30 TAB 0 Refills 03/12/17 Multiple Vitamin (Multi-Vitamin Daily) 1 Tab Tab, 1 TAB PO DAILY for Nutritional Supplement, TAB 0 Refills 03/12/17 Sennosides (Senna Lax) 8.6 Mg Tab, 8.6 MG PO BID for Constipation 03/12/17 Acetaminophen (Tylenol) 325 Mg Tab, 650 MG PO Q4H Y for TEMP > 100.1, TAB 0 Refills 03/12/17 Lactobacillus (Acidophilus Probiotic) 100 Mg (1 Billion Cell) Cap, 100 MG PO TID for 14 Days 03/12/17 Amoxicillin-Clavulanate (Augmentin) 875-125 Mg Tab, 1 TAB PO Q12HR for Infection for 7 Days, TAB 0 Refills 03/12/17 Donepezil (Donepezil) 10 Mg Tab, 10 MG PO BID for Dementia, #30 TAB 0 Refills 12/15/16 Levothyroxine (Levothyroxine) 50 Mcg Tab, 50 MCG PO DAILY for Thyroid, #30 TAB 0 Refills 12/15/16 Atorvastatin (Atorvastatin) 40 Mg Tab, 40 MG PO HS for Cholesterol Management, # 30 TAB 0 Refills 12/15/16 Discontinued Scripts Sennosides-Docusate Sodium (Gnp Senna Plus 8.6-50 mg) 8.6 Mg-50 Mg Tab, 1 TAB PO BID for Bowel Management, #20 TAB Prov:Kostas Brooks MD 12/18/16 Nitrofurantoin Monohydrate Macrocrystals (Nitrofurantoin Monohydrate Macrocrystals) 100 Mg Cap, 100 MG PO BIDPC for Infection, #14 CAP Prov:Kostas Brooks MD 12/18/16 Current Medications Medications (Trade) Dose Ordered Sig/Elizabeth Route Start Time Stop Time Status Last Admin (NS Flush) 2 ml UNSCH PRN IV FLUSH 03/12/17 17:15 (NS Flush) 2 ml BID IV FLUSH 03/12/17 21:00 03/13/17 08:35 (Tylenol) 650 mg Q4H PRN PO 03/12/17 17:15 (Zofran Inj) 4 mg Q6H PRN IVP 03/12/17 17:15 (Tylenol) 650 mg Q6H PRN PO 03/12/17 17:15 (Narcan Inj) 0.4 mg UNSCH PRN IV PUSH 03/12/17 17:15 (Milk Of Magnmaribel Liq) 30 ml Q12H PRN PO 03/12/17 17:15 (Duoneb Neb) 1 ampule Q6HR WHILE AWAKE NEB NEB 03/12/17 20:00 03/14/17 12:27 (Duoneb Neb) 1 ampule Q2HR NEB PRN NEB 03/12/17 17:15 (Lipitor) 40 mg HS PO 03/12/17 21:00 (Aricept) 10 mg BID PO 03/12/17 21:00 (Synthroid) 50 mcg DAILY@0600 PO 03/13/17 06:00 (Remeron) 7.5 mg DAILY PO 03/13/17 09:00 (Pill Splitter) 1 ea UNSCH PRN OTHER 03/12/17 18:15 Levofloxacin/ Dextrose 100 ml @ 100 mls/hr Q24H IV 03/13/17 09:00 03/14/17 09:40 (Mucinex Er) 600 mg BID PO 03/12/17 21:00 Potassium Chloride/Dextrose/ Sod Cl 1,000 ml @ 70 mls/hr [id number] IV 03/14/17 09:30 03/14/17 09:47 (Santyl Oint) 1 applic DAILY TOPICAL 03/14/17 15:00 Physical Exam Vital Signs Vital Signs Date Time Temp Pulse Resp B/P (MAP) Pulse Ox O2 Delivery O2 Flow Rate FiO2 03/14/17 12:00 98.2 85 16 99/52 (68) 92 03/12/17 17:06 Room Air I/O 203/14/17 03/15/17 08:00 16:00 00:00 Intake Total 2897 ml 400 ml Balance 2897 ml 400 ml Lab Results Test 03/14/17 06:10 White Blood Count 7.4 TH/MM3 Red Blood Count 3.94 MIL/MM3 Hemoglobin 11.3 GM/DL Hematocrit 33.9 % Mean Corpuscular Volume 86.0 FL Mean Corpuscular Hemoglobin 28.6 PG Mean Corpuscular Hemoglobin Concent 33.3 % Red Cell Distribution Width 15.5 % Platelet Count 223 TH/MM3 Mean Platelet Volume 7.8 FL Neutrophils (%) (Auto) 65.4 % Lymphocytes (%) (Auto) 24.6 % Monocytes (%) (Auto) 7.8 % Eosinophils (%) (Auto) 1.8 % Basophils (%) (Auto) 0.4 % Neutrophils # (Auto) 4.9 TH/MM3 Lymphocytes # (Auto) 1.8 TH/MM3 Monocytes # (Auto) 0.6 TH/MM3 Eosinophils # (Auto) 0.1 TH/MM3 Basophils # (Auto) 0.0 TH/MM3 CBC Comment DIFF FINAL Differential Comment Blood Urea Nitrogen 7 MG/DL Creatinine 0.60 MG/DL Random Glucose 86 MG/DL Total Protein 5.8 GM/DL Calcium Level 7.4 MG/DL Sodium Level 139 MEQ/L Potassium Level 3.4 MEQ/L Chloride Level 106 MEQ/L Carbon Dioxide Level 24.8 MEQ/L Anion Gap 8 MEQ/L Estimat Glomerular Filtration Rate 96 ML/MIN Protein Corrected Calcium 8.1 MG/DL Date/Time Source Procedure Growth Status 03/12/17 16:00 Nasal Aspirate Influenza Types A,B Antigen (PANKAJ) - Final NEGATIVE FOR FLU A AND B ANTIGEN.... Complete 03/12/17 15:00 Urine Catheterized Urine Urine Culture - Final NO GROWTH IN 48 HOURS. Complete Mental Status Examination Appearance: Appropriate Consciousness: Obtunded, Clouded Mental Status Exam Remarks Limited due to the altered mental status Assessment & Plan Problem List: (1) Encephalopathy ICD Codes: G93.40 - Encephalopathy, unspecified Status: Resolved (2) UTI (urinary tract infection) ICD Codes: N39.0 - Urinary tract infection, site not specified (3) Delirium due to another medical condition ICD Codes: F05 - Delirium due to known physiological condition Assessment & Plan: She has symptoms and signs seems to be related with hypoactive, hypoalert delirium most probably related with UTI/metabolic or normalities and obviously exacerbated by her level of dementia. Patient would benefit of a low dose of antipsychotic to help with delirium, Seroquel 12.5 mg twice a day. Try to avoid Delriogenic medications as much as possible narcotics /benzodiazepines/anticholinergics. Familiar faces around the bed are highly recommended, as well as frequent reorientation, sensorial stimulation, appropriate lights in the room.. Haldol 1 mg IM when necessary every 8 hours for aggressive behavior and agitation. Agree Remeron 7.5 mg at bedtime and Aricept 10 mg twice a day. We will follow-up. Assessment & Plan Estimated LOS: Indra Worrell MD Mar 14, 2017 15:11
[2017-03-14 16:00] VITALS: BP 137/56; PULSE 60; RESP 19; TEMP 98.5; O2SAT 95
[2017-03-14 20:00] VITALS: BP 124/58; PULSE 94; RESP 18; TEMP 99.4; O2SAT 91
[2017-03-14] MEDS: ATORVASTATIN 40 MG TAB PO SCH (21:00)
[2017-03-15] VITALS: BP 111/51; PULSE 84; RESP 18; TEMP 99.3; O2SAT 92
[2017-03-15] MEDS: D5-1/2 NS + KCL 20 MEQ INJ 1,000 ML IV SCH ×2 (00:31→15:39)
[2017-03-15 04:00] VITALS: BP 114/57; PULSE 68; RESP 18; TEMP 98; O2SAT 93
[2017-03-15] MEDS: LEVOTHYROXINE SODIUM 50 MCG TAB PO SCH (05:48)
[2017-03-15 07:50] VITALS: BP 126/81; PULSE 87; RESP 18; TEMP 98.1; O2SAT 97
[2017-03-15] MEDS: SODIUM CHLORIDE 0.9% FLUSH 10 ML FLUSH IV FLUSH SCH ×2 (08:22→21:00)
[2017-03-15] MEDS: LEVOFLOXACIN 500 MG PREMIX INJ 100 ML IV SCH (08:22)
[2017-03-15] MEDS: guaiFENesin E.R. 600 MG TAB PO SCH ×2 (08:23→21:00)
[2017-03-15] MEDS: DONEPEZIL HCL 5 MG TAB PO SCH ×2 (08:23→21:00)
[2017-03-15] MEDS: QUEtiapine FUMARATE 25 MG TAB PO SCH ×2 (08:23→11:36)
[2017-03-15] MEDS: COLLAGENASE OINT 30 GM TUBE TOPICAL SCH (08:23)
[2017-03-15] MEDS: MIRTAZAPINE 15 MG TAB PO SCH (08:23)
[2017-03-15] MEDS: RESP: ALBUTEROL 2.5 MG/IPRATROPIUM 0.5 MG NEB (SCH) NEB ×3 (09:12→19:35)
--- NOTE | 2017-03-15 11:56 | HHI.PR ---
Subjective Remarks Follow-up metabolic encephalopathy/electrolyte abnormalities 03/13/17-patient seen and examined, she appears more alert however not engage in any conversation with M.D. Vitals stable. 03/14/17-patient seen and examined, patient is alert however seems to be in a delirious state. Currently NPO 03/15/17-patient seen and examined, patient did failed swallow eval x2; Objective Vitals Vital Signs Date Time Temp Pulse Resp B/P (MAP) Pulse Ox O2 Delivery O2 Flow Rate FiO2 03/15/17 07:50 98.1 87 18 126/81 (96) 97 03/15/17 04:00 98.0 68 18 114/57 (76) 93 03/15/17 00:00 99.3 84 18 111/51 (71) 92 03/14/17 20:00 99.4 94 18 124/58 (80) 91 03/14/17 16:00 98.5 60 19 137/56 (83) 95 03/14/17 12:00 98.2 85 16 99/52 (68) 92 I/O 03/14/17 03/14/17 03/14/17 03/15/17 03/15/17 03/15/17 07:00 15:00 23:00 07:00 15:00 23:00 Intake Total 2897 ml 400 ml 950 ml Balance 2897 ml 400 ml 950 ml Intake IV Total 2897 ml 400 ml 950 ml # Voids 5 4 4 # Bowel Movements 0 Result Diagram: 03/14/17 0610 03/14/17 0610 Imaging Last Impressions Head CT 03/12/17 1445 Signed Impressions: Service Date/Time: Sunday, March 12, 2017 15:07 - CONCLUSION: Chronic and small vessel ischemic changes without any evidence for acute hemorrhage or mass effect. Marito Aceves MD Chest X-Ray 03/12/17 1445 Signed Impressions: Service Date/Time: Sunday, March 12, 2017 15:15 - CONCLUSION: No acute cardiopulmonary disease. Marito Aceves MD Objective Remarks GENERAL: NAD SKIN: Warm and dry. HEAD: Normocephalic. EYES: No scleral icterus. No injection or drainage. NECK: Supple, trachea midline. No JVD or lymphadenopathy. CARDIOVASCULAR: Regular rate and rhythm without murmurs, gallops, or rubs. RESPIRATORY: Breath sounds equal bilaterally. No accessory muscle use. GASTROINTESTINAL: Abdomen soft, non-tender, nondistended. MUSCULOSKELETAL: No cyanosis, or edema. BACK: Nontender without obvious deformity. No CVA tenderness. A/P Problem List: (1) Encephalopathy ICD Code: G93.40 - Encephalopathy, unspecified Status: Resolved (2) Altered mental status ICD Code: R41.82 - Altered mental status, unspecified Status: Resolved (3) Hypocalcemia ICD Code: E83.51 - Hypocalcemia Status: Resolved (4) Hypokalemia ICD Code: E87.6 - Hypokalemia Status: Resolved (5) Compensated respiratory alkalosis ICD Code: E87.3 - Alkalosis (6) Dementia ICD Code: F03.90 - Unspecified dementia without behavioral disturbance Status: Chronic (7) Bronchitis ICD Code: J40 - Bronchitis, not specified as acute or chronic Assessment and Plan 81 Year-old female with Altered mental status change-improved Metabolic Encephalopathy-resolved Dementia Ammonia level within normal limits Continue Namenda Appreciate input from Psychiatry 2/2 bizarre behavior-Continue with current treatment Dysphagia of both liquid and solid Failed swallow eval from speech Consult GI for eval for PEG tube placement NPO, D5w 1/2 NS with KCL Compensated Respiratory alkalosis-Resolved DuoNeb scheduled and when necessary Maintain oxygen saturation above 92% Bronchitis Flu antigens A and B negatives Continue Levaquin IV daily Hypocalcemia Resolved s/p 1 g calcium gluconate 1 IV Hypokalemia Resolved s/p potassium IV and monitor electrolyte Other chronic medical conditions including hyperlipidemia, hypothyroidism Continue outpatient medications DVT prophylaxis: Bilateral SCDs Problem Qualifiers (1) Altered mental status: Qualified Codes: R41.82 - Altered mental status, unspecified (2) Dementia: Kostas Brooks MD Mar 15, 2017 11:56
[2017-03-15 12:00] VITALS: BP 113/64; PULSE 87; RESP 18; TEMP 97.6; O2SAT 95
--- NOTE | 2017-03-15 13:47 | HHI.PR ---
Addendum to Inpatient Note Addendum Reason: Additional Documentation Additional Information Patient's daughter is requesting consultation from hospice for evaluation Kostas Brokos MD Mar 15, 2017 13:47
--- NOTE | 2017-03-15 13:53 | PD.CONS ---
HPI History of Present Illness This is a 81 year old female with dementia, s/p right hip fracture 12/2016 who was brought from her NH for respiratory distress and AMS. She has failed 2 swallow evals and GI has been consulted for PEG tube placement. Reportedly her NH was treating her for recent flu, bronchitis, UTI. In ER she was neg for influenza A or B. Daughter has noticed recent deterioration. No EGD or colonoscopy to daughter's knowledge in last 11 years. (Yany Thakur) PFSH Past Medical History Cardiovascular Problems: Yes (HYPOTENTION ) High Cholesterol: Yes Dementia: Yes Genitourinary: Yes (CHRONIC KIDNEY DISEASE - STAGE 3 ) Medical other: Yes (VITAMIN D DEFICIENCY ) Musculoskeletal: Yes (OSTEOPOROSIS ) Thyroid Disease: Yes (HYPOTHYROID ) Past Surgical History Open reduction internal fixation right ankle 2003December 2016 1-Open reduction internal fixation with suture of the greater trochanter 2- right hip intramedullary rafaela fixation (Yany Thakur) Coded Allergies: No Known Allergies (Verified Allergy, Severe, 03/12/17) Family History Due to patient advanced age family history not relevant Social History Alcohol Use: No Tobacco Use: No Substance Use: No (Yany Thakur) Review of Systems pt noncontributory (Yany Thakur) GI Exam Vitals I&O Vital Signs Date Time Temp Pulse Resp B/P (MAP) Pulse Ox O2 Delivery O2 Flow Rate FiO2 03/15/17 12:00 97.6 87 18 113/64 (80) 95 03/15/17 07:50 98.1 87 18 126/81 (96) 97 03/15/17 04:00 98.0 68 18 114/57 (76) 93 03/15/17 00:00 99.3 84 18 111/51 (71) 92 03/14/17 20:00 99.4 94 18 124/58 (80) 91 03/14/17 16:00 98.5 60 19 137/56 (83) 95 I/O 03/14/17 03/14/17 03/14/17 03/15/17 03/15/17 03/15/17 06:59 14:59 22:59 06:59 14:59 22:59 Intake Total 2897 ml 400 ml 950 ml Balance 2897 ml 400 ml 950 ml Intake IV Total 2897 ml 400 ml 950 ml # Voids 5 4 4 # Bowel Movements 0 Imaging Last Impressions Head CT 03/12/17 1445 Signed Impressions: Service Date/Time: Sunday, March 12, 2017 15:07 - CONCLUSION: Chronic and small vessel ischemic changes without any evidence for acute hemorrhage or mass effect. Marito Aceves MD Chest X-Ray 03/12/17 1445 Signed Impressions: Service Date/Time: Sunday, March 12, 2017 15:15 - CONCLUSION: No acute cardiopulmonary disease. Marito Aceves MD Laboratory Date/Time Source Procedure Growth Status 03/12/17 16:00 Nasal Aspirate Influenza Types A,B Antigen (PANKAJ) - Final NEGATIVE FOR FLU A AND B ANTIGEN.... Complete 03/12/17 15:00 Urine Catheterized Urine Urine Culture - Final NO GROWTH IN 48 HOURS. Complete Physical Examination HEENT: PERRL; normocephalic; atraumatic; no jaundice. CHEST: coarse CARDIAC: RRR ABDOMEN: Soft, nondistended, nontender; no hepatosplenomegaly; bowel sounds are present in all four quadrants. EXTREMITIES: No clubbing, cyanosis, or edema. SKIN: Normal; no rash; no jaundice. 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 GI consulted for peg tube placement. Daughter unsure of how to proceed. Wants to discuss with family, wants more information on her mother's diagnoses and prognosis. - dementia PLAN - palliative care consult - EGD with PEG tube placement if daughter decides to proceed - NPO per ST - IVF - supportive care pt seen by myself and Dr Su and this note is written on her behalf (Yany Thakur) Physician Comments agree with above (Va Su MD) Yany Thakur Mar 15, 2017 13:52 Va Su MD Mar 15, 2017 19:34
--- NOTE | 2017-03-15 15:38 | PD.CONS ---
Consult Service Palliative Care Consult Requested By Ofe . Primary Care Physician Destin Beaver MD . Reason for Consultation a. To assist with evaluation and management of symptoms including: Encephalopathy, dyspnea, agitation b. To assist medical decision maker(s) with: better understanding of current medical conditions; weighing benefits/burdens of medical treatment options; making medical treatment decisions. . HPI History of Present Illness This 81-year-old female, with a history of dementia for 12 years, chronic kidney disease, and nutrition deficit, fell and sustained a hip fracture in December 2016. She underwent ORIF and rehabilitation was attempted, but the patient has continued to decline rapidly since then. She has become recently nonverbal, has been nonambulatory for a couple months, and now developed altered mental status and some apparent dyspnea and was brought to the emergency department on 03/12/17. Findings in the emergency department included: * Nonverbal, profound weakness * Temp 99.5, pulse 87, respirations 20, blood pressure 119/83, oxygen saturation 93% on room air * White count 7.2, hemoglobin 12.9 * Urinalysis consistent with UTI * Sodium 146, creatinine 0.66 * Total protein 5.9 left (albumin was 2.4 in December 2016) * CT brain scan with small vessel ischemic changes * Chest x-ray with no acute disease The patient was admitted for further treatment. Speech therapy evaluated the patient on 03/13 and 03/15/17, and she failed swallow testing both times, with nothing by mouth being recommended. There was discussion about possible PEG tube placement, but family had questions and Palliative Care was consulted to assist with symptom management, and to enter into discussions with the family regarding her current problems, prognosis, and the benefits and burdens of the various treatment choices. . Function/Cognitive Trajectory The patient has been declining more rapidly in the past couple months, becoming bedbound and now nonverbal. . Review of Systems ROS Limitations: Altered Mental Status (history is per daughter and medical records) Constitutional: COMPLAINS OF: Weight loss Eyes: DENIES: Eye inflammation Ears, nose, mouth, throat: DENIES: Epistaxis Respiratory: COMPLAINS OF: Cough (loose sounding cough the past couple weeks), Shortness of breath (prior to arrival at the hospital) Cardiovascular: DENIES: Lower Extremity Edema Gastrointestinal: DENIES: Bloody stools, Diarrhea, Vomiting Genitourinary: DENIES: Hematuria Musculoskeletal: DENIES: Joint Swelling Integumentary: DENIES: Rash Hematologic/Lymphatics: DENIES: Bruising Immunologic/Allergic: DENIES: Urticaria Neurologic: DENIES: Localized weakness, Seizures Psychiatric: COMPLAINS OF: Confusion (chronic), Agitation (intermittent) Past Family Social History Coded Allergies: No Known Allergies (Verified Allergy, Severe, 03/12/17) Past Medical History * Alzheimer's dementia for 12 years * Hip fracture December 2016, with more rapid progression of the dementia and physical decline since then * Malnutrition/deconditioning * UTI * Chronic kidney disease * Hyperlipidemia * Osteoporosis * Hypothyroid . Past Surgical History Open reduction internal fixation right ankle 2003December 2016 1-Open reduction internal fixation with suture of the greater trochanter 2- right hip intramedullary rafaela fixation . Reported Medications Reported Meds & Active Scripts Active Percocet (Oxycodone-Acetaminophen) 5-325 mg Tab 1 Tab PO Q4H PRN Reported Mucus Relief ER (Guaifenesin) 600 Mg Tab 600 Mg PO Q12HR 5 Days Melatonin 3 Mg Tab 3 Mg PO HS Pro-Stat (Amino Acids-Protein Hydrolysat) 15 Gram-100 Kcal/30 Ml Liq 30 Ml PO TID Mirtazapine 7.5 Mg Tab 7.5 Mg PO DAILY Multi-Vitamin Daily (Multiple Vitamin) 1 Tab Tab 1 Tab PO DAILY Senna Lax (Sennosides) 8.6 Mg Tab 8.6 Mg PO BID Tylenol (Acetaminophen) 325 Mg Tab 650 Mg PO Q4H PRN Acidophilus Probiotic (Lactobacillus) 100 Mg (1 Billion Cell) Cap 100 Mg PO TID 14 Days Augmentin (Amoxicillin-Clavulanate) 875-125 Mg Tab 1 Tab PO Q12HR 7 Days Donepezil 10 Mg Tab 10 Mg PO BID Levothyroxine (Levothyroxine Sodium) 50 Mcg Tab 50 Mcg PO DAILY Atorvastatin (Atorvastatin Calcium) 40 Mg Tab 40 Mg PO HS . Current Medications Medications (Trade) Dose Ordered Sig/Elizabeth Route Start Time Stop Time Status Last Admin (NS Flush) 2 ml UNSCH PRN IV FLUSH 03/12/17 17:15 (NS Flush) 2 ml BID IV FLUSH 03/12/17 21:00 03/14/17 23:29 (Tylenol) 650 mg Q4H PRN PO 03/12/17 17:15 (Zofran Inj) 4 mg Q6H PRN IVP 03/12/17 17:15 (Tylenol) 650 mg Q6H PRN PO 03/12/17 17:15 (Narcan Inj) 0.4 mg UNSCH PRN IV PUSH 03/12/17 17:15 (Milk Of Magnesia Liq) 30 ml Q12H PRN PO 03/12/17 17:15 (Duoneb Neb) 1 ampule Q6HR WHILE AWAKE NEB NEB 03/12/17 20:00 03/15/17 13:07 (Duoneb Neb) 1 ampule Q2HR NEB PRN NEB 03/12/17 17:15 (Lipitor) 40 mg HS PO 03/12/17 21:00 (Aricept) 10 mg BID PO 03/12/17 21:00 (Synthroid) 50 mcg DAILY@0600 PO 03/13/17 06:00 (Remeron) 7.5 mg DAILY PO 03/13/17 09:00 (Pill Splitter) 1 ea UNSCH PRN OTHER 03/12/17 18:15 Levofloxacin/ Dextrose 100 ml @ 100 mls/hr Q24H IV 03/13/17 09:00 03/15/17 08:22 (Mucinex Er) 600 mg BID PO 03/12/17 21:00 Potassium Chloride/Dextrose/ Sod Cl 1,000 ml @ 70 mls/hr [id number] IV 03/14/17 09:30 03/15/17 00:31 (Santyl Oint) 1 applic DAILY TOPICAL 03/14/17 15:00 03/15/17 08:23 (SEROquel) 12.5 mg BID@09,12 PO 03/15/17 09:00 Family History There were other relatives with dementia. The patient's son recently of pancreatic cancer. . Substance Use Tobacco: None Alcohol: None Prescription med abuse: None Illicits: None . Psychosocial History The patient was about 40 years ago, and lived independently for many years. She was cared for by family as her dementia worsened, and now she has been a [facility] at a [facility] in recent months. She had 3 children. One son recently, another son is living in another state and not generally easily available, and he has deferred decision making to the patient's daughter Waqas Santizo. . Spiritual/Cultural Factors Family is considering cdl company flatbed driver visits . Living Will: Never completed Health Care Surrogate: Never completed Durable Power of Electrical Intern: Never completed Family/friends goals: The patient's daughter and [id number] do feel that it is time to change the focus to comfort, and they are ready to speak with hospice. . Ethical and Legal Issues There are no ethical decisions regarding this patient's care. The patient lacks capacity for decision-making, and she will not regain that capacity. The patient's son has deferred decision making to the patient's daughter Waqas, and Waqas has been functioning as the decision-maker for the past several years. . Physical Exam Vital Signs Date Time Temp Pulse Resp B/P (MAP) Pulse Ox O2 Delivery O2 Flow Rate FiO2 03/15/17 12:00 97.6 87 18 113/64 (80) 95 03/15/17 07:50 98.1 87 18 126/81 (96) 97 03/15/17 04:00 98.0 68 18 114/57 (76) 93 03/15/17 00:00 99.3 84 18 111/51 (71) 92 03/14/17 20:00 99.4 94 18 124/58 (80) 91 03/14/17 16:00 98.5 60 19 137/56 (83) 95 03/15/17 03/16/17 19:00 07:00 # Voids 4 Exam CONSTITUTIONAL/GENERAL: This is an elderly, weak, nonverbal patient, in no apparent distress. TUBES/LINES/DRAINS: Peripheral IV SKIN: No jaundice, rashes, or lesions. Ecchymoses on upper extremities. No wounds seen anteriorly. Skin temperature appropriate. Not diaphoretic. HEAD: Atraumatic. Normocephalic. EYES: Pupils equal and round and reactive. No scleral icterus. No injection or drainage. Fundi not examined. ENT: Nose without bleeding or purulent drainage. Throat without visible erythema , exudates, masses, or lesions. NECK: Trachea midline. Supple, nontender. No palpable thyroid enlargement or nodularity. CARDIOVASCULAR: Regular rate and rhythm without murmurs, gallops, or rubs. No JVD. Peripheral pulses symmetric. RESPIRATORY/CHEST: Symmetric, unlabored respirations. Scattered rhonchi GASTROINTESTINAL: Abdomen soft, non-tender, nondistended. No hepato-splenomegaly , or palpable masses. No guarding. Bowel sounds present. GENITOURINARY: Without palpable bladder distension. MUSCULOSKELETAL: Extremities without clubbing, cyanosis, or edema. No joint tenderness or effusion noted. No calf tenderness. No mottling or clubbing. LYMPHATICS: No palpable cervical or supraclavicular adenopathy. NEUROLOGICAL: Awake and alert. Does not track, does not follow commands. Occasionally moves hands PSYCHIATRIC: Reportedly was agitated earlier, seems calm at the time I am examining her. . Diagnostic Tests Laboratory Laboratory Tests Test 03/12/17 15:50 03/12/17 16:00 03/13/17 05:47 03/14/17 06:10 Blood Gas Puncture Site SWAN DOUG LINE Blood Gas Patient Temperature 98.6 Venous Blood pH 7.48 (7.360-7.400) Venous Blood Partial Pressure CO2 34 mmHg (44-48) Venous Blood Partial Pressure O2 29 mmHg (35-40) Venous Blood HCO3 25 mmol/L (22-26) Venous Blood Oxygen Saturation 54 % (70-76) Venous Blood Oxygen Content 9.0 Vol % (9.0-17.0) Venous Blood Base Excess 1.4 mmol/L (-2-2) Oxygen Delivery Device ROOM AIR Blood Gas Inspired Oxygen 21 % Blood Urea Nitrogen 16 MG/DL (7-18) 9 MG/DL (7-18) 7 MG/DL (7-18) Creatinine 0.66 MG/DL (0.50-1.00) 0.59 MG/DL (0.50-1.00) 0.60 MG/DL (0.50-1.00) Random Glucose 84 MG/DL (74-106) 89 MG/DL (74-106) 86 MG/DL (74-106) Total Protein 5.9 GM/DL (6.4-8.2) 5.2 GM/DL (6.4-8.2) 5.8 GM/DL (6.4-8.2) Calcium Level 6.7 MG/DL (8.5-10.1) 7.4 MG/DL (8.5-10.1) 7.4 MG/DL (8.5-10.1) Sodium Level 146 MEQ/L (136-145) 140 MEQ/L (136-145) 139 MEQ/L (136-145) Potassium Level 2.9 MEQ/L (3.5-5.1) 3.8 MEQ/L (3.5-5.1) 3.4 MEQ/L (3.5-5.1) Chloride Level 113 MEQ/L (98-107) 109 MEQ/L (98-107) 106 MEQ/L (98-107) Carbon Dioxide Level 23.9 MEQ/L (21.0-32.0) 24.4 MEQ/L (21.0-32.0) 24.8 MEQ/L (21.0-32.0) Anion Gap 9 MEQ/L (5-15) 7 MEQ/L (5-15) 8 MEQ/L (5-15) Estimat Glomerular Filtration Rate 86 ML/MIN (>89) 98 ML/MIN (>89) 96 ML/MIN (>89) Protein Corrected Calcium 7.3 MG/DL (8.5-10.1) 8.5 MG/DL (8.5-10.1) 8.1 MG/DL (8.5-10.1) Troponin I 0.03 NG/ML (0.02-0.05) Thyroid Stimulating Hormone 3rd Gen 3.360 uIU/ML (0.358-3.740) White Blood Count 7.3 TH/MM3 (4.0-11.0) 7.4 TH/MM3 (4.0-11.0) Red Blood Count 3.71 MIL/MM3 (4.00-5.30) 3.94 MIL/MM3 (4.00-5.30) Hemoglobin 10.7 GM/DL (11.6-15.3) 11.3 GM/DL (11.6-15.3) Hematocrit 31.8 % (35.0-46.0) 33.9 % (35.0-46.0) Mean Corpuscular Volume 85.8 FL (80.0-100.0) 86.0 FL (80.0-100.0) Mean Corpuscular Hemoglobin 28.9 PG (27.0-34.0) 28.6 PG (27.0-34.0) Mean Corpuscular Hemoglobin Concent 33.7 % (32.0-36.0) 33.3 % (32.0-36.0) Red Cell Distribution Width 15.3 % (11.6-17.2) 15.5 % (11.6-17.2) Platelet Count 215 TH/MM3 (150-450) 223 TH/MM3 (150-450) Mean Platelet Volume 7.4 FL (7.0-11.0) 7.8 FL (7.0-11.0) Neutrophils (%) (Auto) 68.3 % (16.0-70.0) 65.4 % (16.0-70.0) Lymphocytes (%) (Auto) 24.4 % (9.0-44.0) 24.6 % (9.0-44.0) Monocytes (%) (Auto) 6.6 % (0.0-8.0) 7.8 % (0.0-8.0) Eosinophils (%) (Auto) 0.5 % (0.0-4.0) 1.8 % (0.0-4.0) Basophils (%) (Auto) 0.2 % (0.0-2.0) 0.4 % (0.0-2.0) Neutrophils # (Auto) 5.0 TH/MM3 (1.8-7.7) 4.9 TH/MM3 (1.8-7.7) Lymphocytes # (Auto) 1.8 TH/MM3 (1.0-4.8) 1.8 TH/MM3 (1.0-4.8) Monocytes # (Auto) 0.5 TH/MM3 (0-0.9) 0.6 TH/MM3 (0-0.9) Eosinophils # (Auto) 0.0 TH/MM3 (0-0.4) 0.1 TH/MM3 (0-0.4) Basophils # (Auto) 0.0 TH/MM3 (0-0.2) 0.0 TH/MM3 (0-0.2) CBC Comment DIFF FINAL DIFF FINAL Differential Comment Albumin 1.8 GM/DL (3.4-5.0) Alkaline Phosphatase 79 U/L (45-117) Aspartate Amino Transf (AST/SGOT) 60 U/L (15-37) Alanine Aminotransferase (ALT/SGPT) 23 U/L (10-53) Total Bilirubin 0.4 MG/DL (0.2-1.0) Result Diagram: 03/14/17 0610 03/14/17 0610 Microbiology Microbiology Date/Time Source Procedure Growth Status 03/12/17 16:00 Nasal Aspirate Influenza Types A,B Antigen (PANKAJ) - Final NEGATIVE FOR FLU A AND B ANTIGEN.... Complete Imaging Last Impressions Head CT 03/12/17 1445 Signed Impressions: Service Date/Time: Sunday, March 12, 2017 15:07 - CONCLUSION: Chronic and small vessel ischemic changes without any evidence for acute hemorrhage or mass effect. Marito Aceves MD Chest X-Ray 03/12/175 Signed Impressions: Service Date/Time: Sunday, March 12, 2017 15:15 - CONCLUSION: No acute cardiopulmonary disease. Marito Aceves MD Patient/Family Conference Present at Family Conference: Patient's daughter Waqas and patient's [id number] Lu by telephone . Family Conference Time (mins): 49 Family Conference Location: Telephone Issues Discussed: * Palliative care role, purpose, approach * Hospice care role, purpose, approach * Additional medical, psychosocial, and spiritual history * Patients general health, functional status, and cognitive changes in the months leading up to the current hospitalization * Patient/family understanding of the current medical problems * Patient/family understanding of prognosis * Patients goals of care as best understood from advance directives and/or conversations and/or values * Current medical treatment options and benefits/burdens of those options * Likely scenarios comparing ongoing aggressive care with a transition to comfort measures only * Questions answered to the best of my ability * Palliative care contact information provided . Assessment and Plan Disease Oriented Problem List: (1) profound dysphagia with risk of aspiration (2) end-stage Alzheimer's dementia (3) UTI (4) malnutrition/deconditioning (5) chronic kidney disease (6) hyperlipidemia (7) osteoporosis (8) hypothyroid Symptom Scale: (1) dyspnea 0-10 Scale: 0 (seems to be resolved) (2) agitation 0-10 Scale: Unable to quantify (intermittent) Pertinent Non-Medical Issues Psychosocial: 4 years ago, 3 children with 2 living. Spiritual: Drilling Foreman visits being considered Legal: The patient lacks capacity for decision-making, and she will not regain that capacity. The patient's son has deferred decision making to the patient's daughter Waqas, and Waqas has been functioning as the decision-maker for the past several years. Ethical issues impacting care: None . Important Contacts Daughter: Waqas Santizo [phone], . Prognosis This patient is terminal, with end-stage dementia and significant dysphagia. She is probably already aspirating. . Code Status: No Code Plan * DO NOT RESUSCITATE * DECISION-MAKING: The patient lacks capacity for decision-making, and she will not regain that capacity. Her daughter dialysis is the proxy decision-maker. * GOALS: In consultation with the patient's [id number], the patient's daughter has elected to transition to comfort care, requesting hospice services , and she understands that the patient likely will live just days or weeks. * Hospice consult placed. * SYMPTOMS: The patient's dyspnea and agitation will be managed by hospice. * Palliative Care will continue to follow this patient during the hospitalization. . Time Spent Total Floor Time (mins): 76 Face to Face Time (mins): 15 >50% Counseling/Coord of Care: Yes (d/w Chauncey QUEEN) Thank you for the opportunity to participate in the care of Ms. Núñez. Attestation To help prompt me to consider important information that might be impacting today's encounter and assessment, information from prior notes written by myself or my colleagues may have been "brought forward" into today's note. My signature on this note, however, is an attestation that I personally performed the exam, history, and/or decision-making noted today, and, unless otherwise indicated, the interactions with patient, family, and staff as well as the review of records all occurred today. I also attest that the listed assessment and stated plan reflect my best clinical judgment today based on the combination of historical information, prior notes, and today's exam/ interactions. When time spent is documented, it refers only to time spent today by the signer, or if indicated, combined time spent today by collaborating physician/nurse practitioner. Rajwinder Cuellar MD Mar 15, 2017 15:38
[2017-03-15] MEDS: ATORVASTATIN 40 MG TAB PO SCH (21:00)
[2017-03-15 21:30] VITALS: BP 101/50; PULSE 93; RESP 23; TEMP 98.9; O2SAT 96
[2017-03-16 00:15] VITALS: BP 105/51; PULSE 89; RESP 20; TEMP 98; O2SAT 97
[2017-03-16] MEDS: D5-1/2 NS + KCL 20 MEQ INJ 1,000 ML IV SCH (05:31)
[2017-03-16 05:40] VITALS: BP 108/51; PULSE 80; RESP 23; TEMP 97.5; O2SAT 96
[2017-03-16] MEDS: LEVOTHYROXINE SODIUM 50 MCG TAB PO SCH (06:00)
[2017-03-16] MEDS: RESP: ALBUTEROL 2.5 MG/IPRATROPIUM 0.5 MG NEB (SCH) NEB ×2 (07:38→14:07)
[2017-03-16 08:00] VITALS: BP 164/65; PULSE 83; RESP 18; TEMP 98.9; O2SAT 92
[2017-03-16] MEDS: QUEtiapine FUMARATE 25 MG TAB PO SCH ×2 (09:00→12:00)
[2017-03-16] MEDS: SODIUM CHLORIDE 0.9% FLUSH 10 ML FLUSH IV FLUSH SCH (09:00)
[2017-03-16] MEDS: guaiFENesin E.R. 600 MG TAB PO SCH (09:00)
[2017-03-16] MEDS: DONEPEZIL HCL 5 MG TAB PO SCH (09:00)
[2017-03-16] MEDS: MIRTAZAPINE 15 MG TAB PO SCH (09:00)
[2017-03-16] MEDS: LEVOFLOXACIN 500 MG PREMIX INJ 100 ML IV SCH (09:02)
--- NOTE | 2017-03-16 09:38 | HHI.PR ---
Subjective Remarks patient opened eyes to call of her name but not interactive Objective Vitals Vital Signs Date Time Temp Pulse Resp B/P (MAP) Pulse Ox O2 Delivery O2 Flow Rate FiO2 03/16/17 08:00 98.9 83 18 164/65 (98) 92 03/16/17 05:40 97.5 80 23 108/51 (70) 96 03/16/17 00:15 98.0 89 20 105/51 (69) 97 03/15/17 21:30 98.9 93 23 101/50 (67) 96 03/15/17 12:00 97.6 87 18 113/64 (80) 95 I/O 03/15/17 03/15/17 03/15/17 03/16/17 03/16/17 03/16/17 07:00 15:00 23:00 07:00 15:00 23:00 Intake Total 950 ml 0 ml 0 ml Output Total 100 ml 300 ml Balance 950 ml -100 ml -300 ml Intake Oral 0 ml 0 ml IV Total 950 ml Output Urine Total 100 ml 300 ml # Voids 4 1 # Bowel Movements 0 0 Result Diagram: 03/14/17 0610 03/14/17 0610 Imaging Last Impressions Head CT 03/12/17 1445 Signed Impressions: Service Date/Time: Sunday, March 12, 2017 15:07 - CONCLUSION: Chronic and small vessel ischemic changes without any evidence for acute hemorrhage or mass effect. Marito Aceves MD Chest X-Ray 03/12/17 1445 Signed Impressions: Service Date/Time: Sunday, March 12, 2017 15:15 - CONCLUSION: No acute cardiopulmonary disease. Marito Aceves MD Objective Remarks opened eyes to call of name very dry oral mucosa decrease breath sounds, no rales regular rhythm abdomen- soft, + bowel sounds extremities no edema no purposeful movements A/P Problem List: (1) Encephalopathy ICD Code: G93.40 - Encephalopathy, unspecified Status: Resolved (2) Altered mental status ICD Code: R41.82 - Altered mental status, unspecified Status: Resolved (3) Hypocalcemia ICD Code: E83.51 - Hypocalcemia Status: Resolved (4) Hypokalemia ICD Code: E87.6 - Hypokalemia Status: Resolved (5) Compensated respiratory alkalosis ICD Code: E87.3 - Alkalosis (6) Dementia ICD Code: F03.90 - Unspecified dementia without behavioral disturbance Status: Chronic (7) Bronchitis ICD Code: J40 - Bronchitis, not specified as acute or chronic Assessment and Plan 81 Year-old female with Altered mental status change-improved Metabolic Encephalopathy-resolved Dementia Ammonia level within normal limits Continue Namenda and Aricept Appreciate input from Psychiatry 2/2 bizarre behavior-Continue with current treatment Dysphagia of both liquid and solid Failed swallow eval from speech GI consulted- awaiting consent from family NPO, D5w 1/2 NS with KCL Compensated Respiratory alkalosis-Resolved DuoNeb scheduled and when necessary Maintain oxygen saturation above 92% Bronchitis Flu antigens A and B negatives Continue Levaquin IV daily Hypocalcemia Resolved s/p 1 g calcium gluconate 1 IV Hypokalemia s/p potassium IV and monitor electrolyte recheck today Other chronic medical conditions including hyperlipidemia, hypothyroidism Continue outpatient medications DVT prophylaxis: Bilateral SCDs Family to meet with Hospice today Problem Qualifiers (1) Altered mental status: Qualified Codes: R41.82 - Altered mental status, unspecified (2) Dementia: Valentine Cruz MD Mar 16, 2017 09:38
--- NOTE | 2017-03-16 10:22 | HHI.HCPN ---
Reason for visit a. To assist with evaluation and management of symptoms including: Encephalopathy, dyspnea, agitation b. To assist medical decision maker(s) with: better understanding of current medical conditions; weighing benefits/burdens of medical treatment options; making medical treatment decisions. . Subjective/Interval History INTERVAL NOTE: Clinically, the patient appears essentially unchanged. She remains afebrile. The family is scheduled to meet with hospice today and likely will engage their services for end-of-life care. . Family/friend interactions Family with appointment with hospice admissions nurse today . Advance Directives Living Will: Never completed Health Care Surrogate: Never completed Durable Power of Liquid Sugar Fortifier: Never completed Objective Vital Signs Date Time Temp Pulse Resp B/P (MAP) Pulse Ox O2 Delivery O2 Flow Rate FiO2 03/16/17 08:00 98.9 83 18 164/65 (98) 92 03/16/17 05:40 97.5 80 23 108/51 (70) 96 03/16/17 00:15 98.0 89 20 105/51 (69) 97 03/15/17 21:30 98.9 93 23 101/50 (67) 96 03/15/17 12:00 97.6 87 18 113/64 (80) 95 Intake & Output 03/16/17 03/16/17 07:00 19:00 Intake Total 0 ml Output Total 400 ml Balance -400 ml Intake Oral 0 ml Output Urine Total 400 ml # Bowel Movements 0 Physical Exam CONSTITUTIONAL/GENERAL: This is an elderly, weak, nonverbal patient, in no apparent distress. CARDIOVASCULAR: Regular rate and rhythm without murmurs, gallops, or rubs. No JVD. Peripheral pulses symmetric. RESPIRATORY/CHEST: Symmetric, unlabored respirations. Scattered rhonchi GASTROINTESTINAL: Abdomen soft, non-tender, nondistended. No hepato-splenomegaly , or palpable masses. No guarding. Bowel sounds present. MUSCULOSKELETAL: Extremities without clubbing, cyanosis, or edema. No joint tenderness or effusion noted. No calf tenderness. No mottling or clubbing. NEUROLOGICAL: Awake. Does not track, does not follow commands. Occasionally moves hands PSYCHIATRIC: No obvious agitation or psychosis now . Diagnostic Tests Laboratory Laboratory Tests Test 03/14/17 06:10 03/16/17 09:59 White Blood Count 7.4 TH/MM3 (4.0-11.0) Red Blood Count 3.94 MIL/MM3 (4.00-5.30) Hemoglobin 11.3 GM/DL (11.6-15.3) Hematocrit 33.9 % (35.0-46.0) Mean Corpuscular Volume 86.0 FL (80.0-100.0) Mean Corpuscular Hemoglobin 28.6 PG (27.0-34.0) Mean Corpuscular Hemoglobin Concent 33.3 % (32.0-36.0) Red Cell Distribution Width 15.5 % (11.6-17.2) Platelet Count 223 TH/MM3 (150-450) Mean Platelet Volume 7.8 FL (7.0-11.0) Neutrophils (%) (Auto) 65.4 % (16.0-70.0) Lymphocytes (%) (Auto) 24.6 % (9.0-44.0) Monocytes (%) (Auto) 7.8 % (0.0-8.0) Eosinophils (%) (Auto) 1.8 % (0.0-4.0) Basophils (%) (Auto) 0.4 % (0.0-2.0) Neutrophils # (Auto) 4.9 TH/MM3 (1.8-7.7) Lymphocytes # (Auto) 1.8 TH/MM3 (1.0-4.8) Monocytes # (Auto) 0.6 TH/MM3 (0-0.9) Eosinophils # (Auto) 0.1 TH/MM3 (0-0.4) Basophils # (Auto) 0.0 TH/MM3 (0-0.2) CBC Comment DIFF FINAL Differential Comment Blood Urea Nitrogen 7 MG/DL (7-18) Creatinine 0.60 MG/DL (0.50-1.00) Random Glucose 86 MG/DL (74-106) Total Protein 5.8 GM/DL (6.4-8.2) Calcium Level 7.4 MG/DL (8.5-10.1) Sodium Level 139 MEQ/L (136-145) Potassium Level 3.4 MEQ/L (3.5-5.1) Chloride Level 106 MEQ/L (98-107) Carbon Dioxide Level 24.8 MEQ/L (21.0-32.0) Anion Gap 8 MEQ/L (5-15) Estimat Glomerular Filtration Rate 96 ML/MIN (>89) Protein Corrected Calcium 8.1 MG/DL (8.5-10.1) Result Diagram: 03/14/17 0610 03/14/17609 Assessment and Plan Disease Oriented Problem List: (1) profound dysphagia with risk of aspiration (2) end-stage Alzheimer's dementia (3) UTI (4) malnutrition/deconditioning (5) chronic kidney disease (6) hyperlipidemia (7) osteoporosis (8) hypothyroid Symptom Scale: (1) dyspnea 0-10 Scale: 0 (seems to be resolved) (2) agitation 0-10 Scale: Unable to quantify (intermittent) Pertinent Non-Medical Issues Psychosocial: 4 years ago, 3 children with 2 living. Spiritual: [employer] Account [employer] visits being considered Legal: The patient lacks capacity for decision-making, and she will not regain that capacity. The patient's son has deferred decision making to the patient's daughter Waqas, and Waqas has been functioning as the decision-maker for the past several years. Ethical issues impacting care: None . Important Contacts Daughter: Waqas Santizo [phone], . Prognosis This patient is terminal, with end-stage dementia and significant dysphagia. She is probably already aspirating. . Code Status: No Code Plan * DO NOT RESUSCITATE * DECISION-MAKING: The patient lacks capacity for decision-making, and she will not regain that capacity. Her daughter tanvi is the proxy decision-maker. * GOALS: In consultation with the patient's [id number], the patient's daughter has elected to transition to comfort care, requesting hospice services , and she understands that the patient likely will live just days or weeks. * Hospice meeting with the family this morning. * SYMPTOMS: patient's dyspnea and agitation will be managed by hospice. * Palliative Care will continue to follow this patient during the hospitalization. . Time Spent Total Floor Time (mins): 29 Face to Face Time (mins): 13 >50% Counseling/Coord of Care: Yes Attestation To help prompt me to consider important information that might be impacting today's encounter and assessment, information from prior notes written by myself or my colleagues may have been "brought forward" into today's note. My signature on this note, however, is an attestation that I personally performed the exam, history, and/or decision-making noted today, and, unless otherwise indicated, the interactions with patient, family, and staff as well as the review of records all occurred today. I also attest that the listed assessment and stated plan reflect my best clinical judgment today based on the combination of historical information, prior notes, and today's exam/ interactions. When time spent is documented, it refers only to time spent today by the signer, or if indicated, combined time spent today by collaborating physician/nurse practitioner. Rajwinder Cuellar MD Mar 16, 2017 10:22
[2017-03-16 10:34] LABS: BICARBONATE 23.2 MEQ/L (21.0-32.0); CALCIUM 7.2 MG/DL (8.5-10.1); CREATININE 0.6 MG/DL (0.50-1.00)
[2017-03-16 10:53] LABS: CALCIUM-PROTEIN CORRECTED 7.9 MG/DL (8.5-10.1); TOTAL PROTEIN 5.7 GM/DL (6.4-8.2)
[2017-03-16 12:00] VITALS: BP 94/47; PULSE 94; RESP 18; TEMP 97.8; O2SAT 99
--- NOTE | 2017-03-16 12:50 | HHI.DS ---
Discharge Summary Admission Date Mar 12, 2017 at 17:03 Discharge Date: Mar 16, 2017 Admitting Diagnosis Altered mental status, hypokalemia, hypocalcemia, UTI (1) Encephalopathy ICD Code: G93.40 - Encephalopathy, unspecified Diagnosis: Principal Status: Acute (2) Altered mental status ICD Code: R41.82 - Altered mental status, unspecified Diagnosis: Principal Status: Acute (3) Hypocalcemia ICD Code: E83.51 - Hypocalcemia Diagnosis: Principal Status: Resolved (4) Hypokalemia ICD Code: E87.6 - Hypokalemia Diagnosis: Secondary Status: Resolved (5) Compensated respiratory alkalosis ICD Code: E87.3 - Alkalosis Diagnosis: Secondary (6) Dementia ICD Code: F03.90 - Unspecified dementia without behavioral disturbance Diagnosis: Secondary Status: Chronic (7) Bronchitis ICD Code: J40 - Bronchitis, not specified as acute or chronic Diagnosis: Secondary Procedures none Brief History - From Admission 81-year-old female with a history of dementia, hyperlipidemia was brought from a local long term facility for evaluation of acute onset of altered mental status change as well as respiratory distressed/failure which was noted by EMS for which patient was treated with DuoNeb. The history is mostly obtained from patient's daughter at the bedside who stated her mom was a usual self until yesterday as she visited her. During that visit, patient was able to talk for later beat however stopped talking afterward. Today patient's according to her daughter was not herself she became more altered. She has been recently treated for bronchitis with Augmentin and was diagnosed with flu however in the emergency department flu B and A antigen were all negative. During my exam, patient was alert however not answering to any questions or talking to me either. She has a cough production. Vitals remained stable. She had multiple electrolyte abnormalities including hypokalemia, hypocalcemia and mildly elevated sodium. Chest x-ray was unremarkable and head CT stable. CBC/BMP: 03/14/17 0610 03/16/17 0959 Significant Findings Laboratory Tests Test 03/14/17 06:10 03/16/17 09:59 Red Blood Count 3.94 MIL/MM3 (4.00-5.30) Hemoglobin 11.3 GM/DL (11.6-15.3) Hematocrit 33.9 % (35.0-46.0) Total Protein 5.8 GM/DL (6.4-8.2) 5.7 GM/DL (6.4-8.2) Calcium Level 7.4 MG/DL (8.5-10.1) 7.2 MG/DL (8.5-10.1) Potassium Level 3.4 MEQ/L (3.5-5.1) Protein Corrected Calcium 8.1 MG/DL (8.5-10.1) 7.9 MG/DL (8.5-10.1) Blood Urea Nitrogen 5 MG/DL (7-18) Random Glucose 114 MG/DL (74-106) Imaging Last Impressions Head CT 03/12/17 1445 Signed Impressions: Service Date/Time: Sunday, March 12, 2017 15:07 - CONCLUSION: Chronic and small vessel ischemic changes without any evidence for acute hemorrhage or mass effect. Marito Aceves MD Chest X-Ray 03/12/17 1445 Signed Impressions: Service Date/Time: Sunday, March 12, 2017 15:15 - CONCLUSION: No acute cardiopulmonary disease. Marito Aceves MD PE at Discharge opened eyes to call of name very dry oral mucosa decrease breath sounds, no rales regular rhythm abdomen- soft, + bowel sounds extremities no edema no purposeful movements Pt update on day of discharge not in any acute pain Hospital Course 81 Year-old female with Altered mental status change-improved Metabolic Encephalopathy-resolved Dementia Ammonia level within normal limits Continue Namenda and Aricept Appreciate input from Psychiatry 2/2 bizarre behavior-Continue with current treatment Dysphagia of both liquid and solid Failed swallow eval from speech GI consulted- awaiting consent from family- plan for PEG- if family agrees NPO, Compensated Respiratory alkalosis-Resolved DuoNeb scheduled and when necessary Maintain oxygen saturation above 92% Bronchitis Flu antigens A and B negatives Continue Levaquin IV daily Hypocalcemia Resolved s/p 1 g calcium gluconate 1 IV Hypokalemia s/p potassium IV and monitor electrolyte recheck today Other chronic medical conditions including hyperlipidemia, hypothyroidism Continue outpatient medications DVT prophylaxis: Bilateral SCDs Family to meet with Hospice today- possible DC hospice or care center ADD- DC to Hospice care center Pt Condition on Discharge: Stable Discharge Disposition: Hospice/Med Facility Discharge Time: > 30 minutes Discharge Instructions DIET: Follow Instructions for: Nothing By Mouth Activities you can perform: Continue Valentine Gallardo MD Mar 16, 2017 12:50
== END 2017-03-16 14:43 | disposition hospice, inpatient (51) | DRG 71 ==
LOC: NEPE 14:30 → NEDA 17:03 → N05A 17:36
PROVIDERS: ADMIT Internal Medicine; ATTEND Internal Medicine
DX: G93.41 Metabolic encephalopathy (principal); E87.3 Alkalosis; L89.312 Pressure ulcer of right buttock, stage 2; E46 Unspecified protein-calorie malnutrition; E87.0 Hyperosmolality and hypernatremia; L89.322 Pressure ulcer of left buttock, stage 2; N39.0 Urinary tract infection, site not specified; R13.10 Dysphagia, unspecified; L89.620 Pressure ulcer of left heel, unstageable; G30.9 Alzheimer's disease, unspecified; F02.80 Dementia in other diseases classified elsewhere, unspecified severity, without behavioral disturbance, psychotic disturbance, mood disturbance, and anxiety; N18.3 Chronic kidney disease, stage 3 (moderate); E87.6 Hypokalemia; Z66 Do not resuscitate; E03.9 Hypothyroidism, unspecified; M81.0 Age-related osteoporosis without current pathological fracture; E78.5 Hyperlipidemia, unspecified; J40 Bronchitis, not specified as acute or chronic; E55.9 Vitamin D deficiency, unspecified; Z74.01 Bed confinement status; Z51.5 Encounter for palliative care
CPT/HCPCS: 70450; 71045; 80048; 80053; 81001; 82140; 82805; 84155; 84443; 84484; 85025; 85610; 85730; 87086; 87804; 93005; 94640; 96360; J0610; J1956; J3480; J7040